=== PATIENT | male | born 1940 | race Caucasian/White ===

== ENCOUNTER 2017-01-17 23:40 | Emergency (ER) | payer MEDICARE, OTHER ==
[2017-01-17 23:51] VITALS: BP 162/85
[2017-01-18] MEDS ORDERED: Sodium Chloride 0.9% 10 ML Syringe FLUSH PRN (00:08)
[2017-01-18] MEDS ORDERED: Sodium Chloride 0.9% 1,000 ML IV SCH (00:15)
[2017-01-18] MEDS ORDERED: Codeine/Promethazine 10-6.25 MG/5 ML Syrup 5 ML UD Cup PO ONE (00:20)
[2017-01-18] MEDS ORDERED: Codeine/Promethazine 10-6.25 MG/5 ML Syrup 5 ML UD Cup ONE (00:22)
[2017-01-18] MEDS ORDERED: Iopamidol 612 MG/ML 150 ML Bottle IVPUSH ONE (01:17)
[2017-01-18] MEDS ORDERED: Diatrizoate Meglumine/Diatrizoate Sodium 37% 120 ML Bottle PO ONE (01:17)
--- NOTE | 2017-01-18 01:49 | EDM.PDOC ---
ED HISTORY OF PRESENT ILLNESS - General Chief Complaint: Respiratory Problem Stated Complaint: COUGH ABDOMAINAL PAIN Time Seen by Provider: 01/18/17 00:02 Source of Information: Reports: Patient History Limitations: Reports: No limitations - History of Present Illness INITIAL COMMENTS - FREE TEXT/NARRATIVE: The patient presents with RLQ abdominal pain after coughing earlier tonight. He has had a cough and shortness of breath for a few days. He has no fever. He has been remodeling his kitchen and it started after that. He has a history of bilateral ingunal hernias but they have not bothered him until tonight when he coughed. Now he has continuous pain in the right lower abdomen. He has no nausea or vomiting. He has no dysuria. He has no diarrhea. Timing/Duration: Reports: Minutes: Severity: moderate Location, General: Reports: abdomen (RLQ) Quality: Reports: Sharp Improves with: Reports: None Worsens with: Reports: Other (coughing) Context, General: Reports: Other (Cough) Associated Symptoms (General): Reports: cough. Denies: fever/chills, nausea/ vomiting, shortness of breath - Related Data Allergies/ADRs: Allergies Allergy/AdvReac Type Severity Reaction Status Date / Time Penicillins Allergy Cannot Verified 01/17/17 23:51 Remember Home Meds: Home Meds Albuterol [Proventil Neb Soln] 2.5 mg NEB QID 01/17/17 [History] Budesonide/Formoterol Fumarate [Symbicort 160-4.5 Mcg Inhaler] 1 puff IH BID [History] Levothyroxine 150 mcg PO ASDIRECTED 01/17/17 [History] Levothyroxine 175 mcg PO ASDIRECTED 01/17/17 [History] Codeine/Promethazine [Phenergan with Codeine] 5 - 10 ml PO Q6HR PRN #300 ml [Rx] Past Medical History Respiratory History: Reports: COPD Gastrointestinal History: Reports: Other (see below) Other Gastrointestinal History: hernia Endocrine/Metabolic History: Reports: Hypothyroidism Social & Family History - Tobacco Use Smoking Status *Q: Former Smoker Used Tobacco, but Quit: Yes Month Tobacco Last Used: 1991 - Caffeine Use Caffeine Use: Reports: None - Recreational Drug Use Recreational Drug Use: No ED ROS GENERAL - Review of Systems Review Of Systems: See Below Constitutional: Reports: no symptoms HEENT: Reports: No symptoms Respiratory: Reports: Shortness of Breath, Cough Cardiovascular: Reports: No symptoms Endocrine: Reports: no symptoms GI/Abdominal: Reports: Abdominal pain. Denies: Nausea, Vomiting : Reports: no symptoms Musculoskeletal: Reports: no symptoms Skin: Reports: no symptoms ED EXAM, GENERAL - Physical Exam Exam: See Below Exam Limited By: No limitations General Appearance: alert, no apparent distress Ears: normal external exam Nose: normal inspection Head: atraumatic, normocephalic Neck: normal inspection Respiratory/Chest: no respiratory distress, wheezing (Mild) Cardiovascular: regular rate, rhythm, no edema, no murmur GI/Abdominal: soft, no organomegaly, no mass, tender (Moderate to the right lower abdomen. I do not feel a hernia in the right inguinal area) Course - Vital Signs Last Recorded V/S: Last Vital Signs Temp 97.7 F 01/17/17 23:47 Pulse 67 01/17/17 23:47 Resp 16 01/17/17 23:47 BP 162/85 H 01/17/17 23:47 Pulse Ox 95 01/17/17 23:47 - Orders/Labs/Meds Orders: Active Orders 24 hr Category Date Time Status Peripheral IV Care [RC] . DIRECTED Care 01/18/17 00:09 Active Abdomen Pelvis w Cont [CT] Stat Exams 01/18/17 00:08 Taken Chest 2V [CR] Stat Exams 01/18/17 00:08 Taken Sodium Chloride 0.9% [Normal Saline] 1,000 ml Med 01/18/17 00:15 Active IV ASDIRECTED Sodium Chloride 0.9% [Saline Flush] Med 01/18/17 00:08 Active 10 ml FLUSH ASDIRECTED PRN Peripheral IV Insertion Adult [OM.PC] Stat Oth 01/18/17 00:08 Ordered Medication Orders Sodium Chloride (Normal Saline) 1,000 mls @ 125 mls/hr IV ASDIRECTED [facility] Last Admin: 01/18/17 00:25 Dose: 125 mls/hr Sodium Chloride (Saline Flush) 10 ml FLUSH ASDIRECTED PRN PRN Reason: Keep Vein Open Labs: Laboratory Tests 01/18/17 01/18/17 01/18/17 Range/Units 00:20 00:20 01:15 WBC 10.93 H (4.23-9.07) K/mm3 RBC 3.74 L (4.63-6.08) M/mm3 Hgb 12.6 L (13.7-17.5) gm/L Hct 39.3 L (40.1-51.0) % MCV 105.1 H (79.0-92.2) fl MCH 33.7 H (25.7-32.2) pg MCHC 32.1 L (32.2-35.5) g/dl RDW Std Deviation 48.9 H (35.1-43.9) fL Plt Count 91 L (163-337) K/mm3 MPV 9.8 (9.4-12.3) fl Neut % (Auto) 78.0 H (34.0-67.9) % Lymph % (Auto) 5.1 L (21.8-53.1) % Boyd % (Auto) 16.2 H (5.3-12.2) % Eos % (Auto) 0.2 L (0.8-7.0) Baso % (Auto) 0.2 (0.1-1.2) % Neut # (Auto) 8.53 H (1.78-5.38) K/mm3 Lymph # (Auto) 0.56 L (1.32-3.57) K/mm3 Boyd # (Auto) 1.77 H (0.30-0.82) K/mm3 Eos # (Auto) 0.02 L (0.04-0.54) K/mm3 Baso # (Auto) 0.02 (0.01-0.08) K/mm3 Manual Slide Review Abnormal smear Sodium 140 (136-145) mEq/L Potassium 3.6 (3.5-5.1) mEq/L Chloride 106 (98-107) mEq/L Carbon Dioxide 25 (21-32) mEq/L Anion Gap 12.6 (5-15) BUN 20 H (7-18) mg/dL Creatinine 1.1 (0.7-1.3) mg/dL Est Cr Clr Drug Dosing 61.80 mL/min Estimated GFR (MDRD) > 60 (>60) mL/min BUN/Creatinine Ratio 18.2 H (14-18) Glucose 99 (83-115) mg/dL Calcium 8.9 (8.5-10.1) mg/dL Total Bilirubin 0.8 (0.2-1.0) mg/dL AST 48 H (15-37) U/L ALT 45 (16-63) U/L Alkaline Phosphatase 53 (46-116) U/L Total Protein 6.3 L (6.4-8.2) g/dl Albumin 3.6 (3.4-5.0) g/dl Globulin 2.7 gm/dL Albumin/Globulin Ratio 1.3 (1-2) Lipase 64 L (73-393) U/L Urine Color Yellow (Yellow) Urine Appearance Clear (Clear) Urine pH 5.5 (5.0-8.0) Ur Specific [place] 1.010 (1.005-1.030) Urine Protein Negative (Negative) Urine Glucose (UA) Negative (Negative) Urine Ketones Negative (Negative) Urine Occult Blood Trace-lysed H (Negative) Urine Nitrite Negative (Negative) Urine Bilirubin Negative (Negative) Urine Urobilinogen 0.2 (0.2-1.0) Ur Leukocyte Esterase Negative (Negative) Urine RBC 5-10 H (0-5) /hpf Urine WBC 0-5 (0-5) /hpf Ur Epithelial Cells 0-5 (0-5) /hpf Urine Bacteria Occasional (FEW) /hpf Urine Mucus Not seen (FEW) /hpf Meds: Medications Generic Name Dose Route Start Last Admin Trade Name Freq PRN Reason Stop Dose Admin Sodium Chloride 1,000 mls @ 125 mls/hr 01/18/17 00:15 01/18/17 00:25 Normal Saline IV 125 mls/hr ASDIRECTED SAMMIE Administration Sodium Chloride 10 ml 01/18/17 00:08 Saline Flush FLUSH ASDIRECTED PRN Keep Vein Open Discontinued Medications Generic Name Dose Route Start Last Admin Trade Name Freq PRN Reason Stop Dose Admin Diatrizoate Meglum/Diatrizoate Sod 90 ml 01/18/17 01:17 Gastrografin 37% PO 01/18/17 01:18 ONETIME ONE Iopamidol 125 ml 01/18/17 01:17 Isovue-300 (61%) IVPUSH 01/18/17 01:18 ONETIME ONE Promethazine HCl/Codeine 10 ml 01/18/17 06:00 Phenergan With Codeine PO Q6HR SAMMIE Promethazine HCl/Codeine 10 ml 01/18/17 00:20 01/18/17 00:25 Phenergan With Codeine PO 01/18/17 00:21 10 ml STAT ONE Administration Promethazine HCl/Codeine Confirm 01/18/17 00:22 01/18/17 01:55 Phenergan With Codeine Administered 01/18/17 00:23 Not Given Dose 10 ml .ROUTE .STK-MED ONE - Re-Assessments/Exams Free Text/Narrative Re-Assessment/Exam: 01/18/17 01:49 I have ordered labs, UA, CT of his abdomen and pelvis and a CXR. I also gave him 10mLs of phenergan with codeine. 01/18/17 02:24 His WBC is elevated at 10.93. His Hgb was a little lwo at 12.6. His Platelets are low at 91. His CMP is negative. His UA shows no UTI. His CT shows no acute findings. The cough medicine helped some. I will give him a prescription for that. He had no sign of hernia on the CT. He may have pulled a muscle. I will give him a brace and see if that helps. 01/18/17 02:27 The patient is on an antibiotic and prednisone. I will have him continue that. Departure - Departure Time of Disposition: 02:30 Disposition: Home, Self-Care 01 Condition: good Clinical Impression: Bronchitis Abdominal pain Qualifiers: Abdominal location: right lower quadrant Qualified Code(s): R10.31 - Right lower quadrant pain Abdominal wall strain Qualifiers: Encounter type: initial encounter Qualified Code(s): S39.011A - Strain of muscle, fascia and tendon of abdomen, initial encounter Prescriptions: Codeine/Promethazine [Phenergan with Codeine] 5 - 10 ml PO Q6HR PRN #300 ml PRN Reason: Cough Referrals: Yamil Watson MD [Primary Care Provider] - Forms: ED Department Discharge Additional Instructions: Take your medication as prescribed. Take the phenergan with codeine every 6 hours as needed for cough. Please return if you are worse. - My Orders Last 24 Hours: My Active Orders 01/18/17 00:08 Abdomen Pelvis w Cont [CT] Stat Chest 2V [CR] Stat Sodium Chloride 0.9% [Saline Flush] 10 ml FLUSH ASDIRECTED PRN Peripheral IV Insertion Adult [OM.PC] Stat 01/18/17 00:09 Peripheral IV Care [RC] . DIRECTED 01/18/17 00:15 Sodium Chloride 0.9% [Normal Saline] 1,000 ml IV ASDIRECTED - Assessment/Plan Last 24 Hours: My Active Orders 01/18/17 00:08 Abdomen Pelvis w Cont [CT] Stat Chest 2V [CR] Stat Sodium Chloride 0.9% [Saline Flush] 10 ml FLUSH ASDIRECTED PRN Peripheral IV Insertion Adult [OM.PC] Stat 01/18/17 00:09 Peripheral IV Care [RC] . DIRECTED 01/18/17 00:15 Sodium Chloride 0.9% [Normal Saline] 1,000 ml IV ASDIRECTED
[2017-01-18] MEDS ORDERED: Codeine/Promethazine 10-6.25 MG/5 ML Syrup 5 ML UD Cup PO SCH (06:00)
--- NOTE | 2017-01-18 09:47 | CR ---
Chest: Two views of the chest were obtained. Comparison: Previous chest CT of 12/28/15 and chest x-ray of 05/17/13. Heart size appears within normal limits. Mild tortuosity of the thoracic aorta is seen. Minimal scar within the right lung base is noted. Lungs otherwise are clear. Bony structures are within normal limits for the patient's age. Impression: 1. Incidental findings. Nothing acute is identified on two-view chest x-ray. Diagnostic code #2
--- NOTE | 2017-01-18 10:34 | CT ---
CT abdomen and pelvis Technique: Multiple axial sections were obtained from above the dome of the diaphragm inferiorly to the pubic symphysis. Intravenous and oral contrast was utilized. Delayed images were also obtained through the abdomen and pelvis. Comparison: Previous CT abdomen and pelvis exam of 07/05/09 is available. Findings: Slight scarring and atelectasis felt to be present within both lung bases. Nothing acute is appreciated. Liver shows no focal parenchymal abnormality. Spleen appears within normal limits. Gallbladder shows no calcified gallstones. Adrenal glands show no nodule. Pancreas is within normal limits. Kidneys show symmetric contrast enhancement without hydronephrosis. Cyst noted within the right kidney measuring about 2.6 cm in size. Cyst was noted on prior exam within the right kidney. Kidneys are otherwise unremarkable. Aorta shows atherosclerotic change which continues into the iliac vessels. No aneurysm is seen. No retroperitoneal adenopathy or mesenteric abnormalities are seen. No pelvic mass or adenopathy is seen. Prostate gland is slightly enlarged. Mild diverticulosis noted within the sigmoid colon without inflammatory change of diverticulitis. Appendix is seen which appears normal. Mild increased stool noted within the colon. Delayed images show contrast within nondilated ureters as well as contrast seen within the bladder. Bone window settings were reviewed which show scattered degenerative change within the spine. Vacuum disc phenomena noted within the L3-L4 and L4-L5 discs. Small fat-containing umbilical hernia is incidentally noted. Impression: 1. Incidental findings as noted above. Nothing acute is identified on CT study of the abdomen and pelvis. Agree with preliminary report issued by [facility] (preliminary report dictated on 01/18/17, 3:15 AM Central Time) Diagnostic code #2
== END 2017-01-18 02:40 | disposition home or self-care (01) ==
LOC: JD.ED 23:40 → MERGE 23:40 → JD.ED 01-18 02:40
DX: S39.011A Strain of muscle, fascia and tendon of abdomen, initial encounter (principal); J40 Bronchitis, not specified as acute or chronic; J44.9 Chronic obstructive pulmonary disease, unspecified; Z87.891 Personal history of nicotine dependence; Z88.0 Allergy status to penicillin; X58.XXXA Exposure to other specified factors, initial encounter
CPT/HCPCS: 36415; 71020; 74177; 80053; 81001; 83690; 85025; 96360; 96361; 99285; A9270; J7040; Q9963; 99283

== ENCOUNTER 2017-09-23 18:38 | Emergency (ER) | payer MEDICARE, OTHER ==
[2017-09-23 18:54] VITALS: BP 137/75
[2017-09-23] MEDS ORDERED: Albuterol/Ipratropium 3.0-0.5 MG/3 ML Neb Soln NEB ONE (19:01)
[2017-09-23] MEDS ORDERED: Levofloxacin/Dextrose 5%-Water 750 MG in Premix Bag 1 BAG IV ONE (19:01)
--- NOTE | 2017-09-23 19:30 | EDM.PDOC ---
ED HPI GENERAL MEDICAL PROBLEM - General Chief Complaint: Respiratory Problem Stated Complaint: FEVER,COUGH (COPD) Time Seen by Provider: 09/23/17 18:52 Source of Information: Reports: Patient History Limitations: Reports: No Limitations - History of Present Illness INITIAL COMMENTS - FREE TEXT/NARRATIVE: The patient presents with a cough, fever, body aches and malaise. This all started last week. He was seen by Dr Watson and he was started on a z-baylee and prednisone. Usually this helps but his symptoms have gotten worse. He has COPD. He denies any chest pain. He has no shortness of breath. He has no abdominal pain, nausea or vomiting. Onset: Gradual Duration: Week(s): (1) Severity: Moderate Improves with: Reports: None Worsens with: Reports: None Associated Symptoms: Reports: Cough, Fever/Chills. Denies: Chest Pain, Headaches, Nausea/Vomiting, Shortness of Breath - Related Data Allergies Allergy/AdvReac Type Severity Reaction Status Date / Time Penicillins Allergy Cannot Verified 01/17/17 23:51 Remember Home Meds: Home Meds Albuterol [Proventil Neb Soln] 2.5 mg NEB QID 01/17/17 [History] Budesonide/Formoterol Fumarate [Symbicort 160-4.5 Mcg Inhaler] 1 puff IH BID [History] Levothyroxine 150 mcg PO ASDIRECTED 01/17/17 [History] Levothyroxine 175 mcg PO ASDIRECTED 01/17/17 [History] Codeine/Promethazine [Phenergan with Codeine] 5 - 10 ml PO Q6HR PRN #300 ml [Rx] Levofloxacin [Levaquin] 750 mg PO DAILY #5 tablet 09/23/17 [Rx] Oseltamivir [Tamiflu] 75 mg PO BID #10 cap 09/23/17 [Rx] Past Medical History Respiratory History: Reports: COPD Gastrointestinal History: Reports: Other (See Below) Other Gastrointestinal History: hernia Endocrine/Metabolic History: Reports: Hypothyroidism Social & Family History - Tobacco Use Smoking Status *Q: Former Smoker Years of Tobacco use: 36 Packs/Tins Daily: 1 Used Tobacco, but Quit: Yes Month Tobacco Last Used: 1991 - Caffeine Use Caffeine Use: Reports: Coffee - Recreational Drug Use Recreational Drug Use: No ED ROS GENERAL - Review of Systems Review Of Systems: See Below Constitutional: Reports: Fever HEENT: Reports: No Symptoms Respiratory: Reports: Cough Cardiovascular: Reports: No Symptoms Endocrine: Reports: No Symptoms GI/Abdominal: Reports: No Symptoms : Reports: No Symptoms ED EXAM, GENERAL - Physical Exam Exam: See Below Exam Limited By: No Limitations General Appearance: Alert, No Apparent Distress Ears: Normal External Exam Nose: Normal Inspection Throat/Mouth: Normal Inspection Head: Atraumatic, Normocephalic Neck: Normal Inspection Respiratory/Chest: No Respiratory Distress, Wheezing (Mild) Cardiovascular: Regular Rate, Rhythm, No Edema, No Murmur GI/Abdominal: Soft, Non-Tender, No Organomegaly, No Mass Back Exam: Normal Inspection Extremities: Normal Inspection Course - Vital Signs Last Recorded V/S: Last Vital Signs Temp 100.4 F 09/23/17 18:50 Pulse 92 09/23/17 18:50 Resp 18 09/23/17 18:50 BP 137/75 09/23/17 18:50 Pulse Ox 93 L 09/23/17 19:22 - Orders/Labs/Meds Orders: Active Orders 24 hr Category Date Time Status Cardiac Monitoring [RC] . DIRECTED Care 09/23/17 19:00 Active Oxygen Therapy [RC] PRN Care 09/23/17 19:00 Active RT Aerosol Therapy [RC] ASDIRECTED Care 09/23/17 19:01 Active Chest 2V [CR] Stat Exams 09/23/17 19:01 Taken Labs: Laboratory Tests 09/23/17 09/23/17 Range/Units 19:00 19:00 WBC 11.22 H (4.23-9.07) K/mm3 RBC 3.67 L (4.63-6.08) M/mm3 Hgb 12.6 L (13.7-17.5) gm/L Hct 39.0 L (40.1-51.0) % MCV 106.3 H (79.0-92.2) fl MCH 34.3 H (25.7-32.2) pg MCHC 32.3 (32.2-35.5) g/dl RDW Std Deviation 48.2 H (35.1-43.9) fL Plt Count 99 L (163-337) K/mm3 MPV 8.9 L (9.4-12.3) fl Neut % (Auto) 74.8 H (34.0-67.9) % Lymph % (Auto) 4.4 L (21.8-53.1) % Bates % (Auto) 17.1 H (5.3-12.2) % Eos % (Auto) 2.8 (0.8-7.0) Baso % (Auto) 0.4 (0.1-1.2) % Neut # (Auto) 8.39 H (1.78-5.38) K/mm3 Lymph # (Auto) 0.49 L (1.32-3.57) K/mm3 Bates # (Auto) 1.92 H (0.30-0.82) K/mm3 Eos # (Auto) 0.31 (0.04-0.54) K/mm3 Baso # (Auto) 0.05 (0.01-0.08) K/mm3 Manual Slide Review Abnormal smear Sodium 139 (136-145) mEq/L Potassium 3.8 (3.5-5.1) mEq/L Chloride 104 (98-107) mEq/L Carbon Dioxide 28 (21-32) mEq/L Anion Gap 10.8 (5-15) BUN 18 (7-18) mg/dL Creatinine 1.4 H (0.7-1.3) mg/dL Est Cr Clr Drug Dosing 48.56 mL/min Estimated GFR (MDRD) 49 (>60) mL/min BUN/Creatinine Ratio 12.9 L (14-18) Glucose 115 (83-115) mg/dL Calcium 8.4 L (8.5-10.1) mg/dL Total Bilirubin 0.7 (0.2-1.0) mg/dL AST 18 (15-37) U/L ALT 25 (16-63) U/L Alkaline Phosphatase 69 (46-116) U/L Total Protein 5.9 L (6.4-8.2) g/dl Albumin 3.0 L (3.4-5.0) g/dl Globulin 2.9 gm/dL Albumin/Globulin Ratio 1.0 (1-2) Meds: Medications Discontinued Medications Generic Name Dose Route Start Last Admin Trade Name Freq PRN Reason Stop Dose Admin Albuterol/Ipratropium 3 ml 09/23/17 19:01 09/23/17 19:19 Duoneb 3.0-0.5 Mg/3 Ml NEB 09/23/17 19:02 3 ml ONETIME ONE Administration Levofloxacin/Dextrose 750 mg/ 150 mls @ 100 mls/hr 09/23/17 19:01 09/23/17 19 :30 Premix IV 09/23/17 20:30 100 mls/hr ONETIME ONE Administration Oseltamivir Phosphate 75 mg 09/23/17 20:21 09/23/17 20:30 Tamiflu PO 09/23/17 20:22 75 mg ONETIME ONE Administration - Re-Assessments/Exams Free Text/Narrative Re-Assessment/Exam: 09/23/17 19:29 I ordered an IV NS at 125mL/hr, labs, CXR, levaquin 750mg IV and a duoneb. 09/23/17 20:36 His influenza A is positive. His WBC was elevated at 11.2. His Hgb was a little low at 12.6. His platelets are a little low at 99. His creatinine is slightly elevated at 1.4. His has a linear infiltrate in the left lower lung. I will give him a dose of tamiflu here and a prescription for more and some levaquin. Departure - Departure Time of Disposition: 20:40 Disposition: Home, Self-Care 01 Condition: Good Clinical Impression: Influenza A Pneumonia Qualifiers: Pneumonia type: due to unspecified organism Laterality: left Lung location: lower lobe of lung Qualified Code(s): J18.1 - Lobar pneumonia, unspecified organism - Discharge Information Prescriptions: Levofloxacin [Levaquin] 750 mg PO DAILY #5 tablet Oseltamivir [Tamiflu] 75 mg PO BID #10 cap Referrals: Yamil Watson MD [Primary Care Provider] - Forms: ED Department Discharge Additional Instructions: Take the tamiflu 2 times per day for 5 days. Take the levaquin 750mg daily for 5 days. Take your other medications as prescribed. Take tylenol or motrin for any fever. Please return if you are worse. - My Orders Last 24 Hours: My Active Orders 09/23/17 19:00 Cardiac Monitoring [RC] . DIRECTED Oxygen Therapy [RC] PRN 09/23/17 19:01 RT Aerosol Therapy [RC] ASDIRECTED Chest 2V [CR] Stat - Assessment/Plan Last 24 Hours: My Active Orders 09/23/17 19:00 Cardiac Monitoring [RC] . DIRECTED Oxygen Therapy [RC] PRN 09/23/17 19:01 RT Aerosol Therapy [RC] ASDIRECTED Chest 2V [CR] Stat
[2017-09-23] MEDS ORDERED: Oseltamivir 75 MG Cap PO ONE (20:21)
--- NOTE | 2017-09-24 07:59 | CR ---
Chest: Two views of the chest were obtained. Comparison: Prior chest CT of 02/08/17 and chest x-ray of 01/18/17. Slight atelectasis is seen within both lung bases, worse on the left side. Lungs are hyperinflated compatible with emphysematous change. Lungs otherwise are clear. Heart size and mediastinum are within normal limits. Bony structures appear within normal limits for the patient's age. Impression: 1. Mild atelectasis within both lung bases, worse on the left side. 2. Emphysematous change. 3. Nothing acute is otherwise seen on two-view chest x-ray. Diagnostic code #2
== END 2017-09-23 20:55 | disposition home or self-care (01) ==
LOC: JD.ED 18:38
DX: J10.00 Influenza due to other identified influenza virus with unspecified type of pneumonia (principal); Z88.0 Allergy status to penicillin; Z79.899 Other long term (current) drug therapy; Z87.891 Personal history of nicotine dependence
CPT/HCPCS: 36415; 71020; 80053; 85025; 87804; 94640; 96365; 99284; A9270; J1956; 99283

== ENCOUNTER 2019-11-09 04:07 | Emergency (ER) | payer MEDICARE, OTHER ==
--- NOTE | 2019-11-09 05:26 | EDM.PDOC ---
ED HPI GENERAL MEDICAL PROBLEM - General Chief Complaint: ENT Problem Stated Complaint: EYE PROBLEM Time Seen by Provider: 11/09/19 04:58 Source of Information: Reports: Patient, Family () History Limitations: Reports: No Limitations - History of Present Illness INITIAL COMMENTS - FREE TEXT/NARRATIVE: Mr. Nichole is a very pleasant 79-year-old man with a past medical history significant for non-Hodgkin lymphoma, twice, in 1991 and 2005, who is hard of hearing, status post a cochlear implant, who states that he has to get up to use the restroom several times a night. When he got up around 03:45 this morning, he states that his left eye felt "funny". When he looked in the ear, he saw that his eye appeared to be swollen and bloody. He denies pain. No known trauma to the eye. No prior similar symptoms, although the patient's notes that his left eye gets bloodshot often. The patient's PCP is Dr. Nirav Wallace. His Nursing Unit Manager is Dr. Jay Yuan. His Oncologist is Dr. Mauro Christianson. His Auto Electrician is Dr. Johanna Jefferson. His Ward Secretary is Dr. Toan Cortez. Left Eye Pain Score (Numeric/FACES): 3 - Related Data Allergies Allergy/AdvReac Type Severity Reaction Status Date / Time Penicillins Allergy Cannot Verified 11/09/19 04:36 Remember Home Meds: Home Meds Albuterol [Proventil Neb Soln] 2.5 mg NEB QID 01/17/17 [History] Budesonide/Formoterol Fumarate [Symbicort 160-4.5 Mcg Inhaler] 1 puff IH BID [History] Levothyroxine 150 mcg PO ASDIRECTED 01/17/17 [History] Levothyroxine 175 mcg PO ASDIRECTED 01/17/17 [History] Codeine/Promethazine [Phenergan with Codeine] 5 - 10 ml PO Q6HR PRN #300 ml [Rx] Levofloxacin [Levaquin] 750 mg PO DAILY #5 tablet 09/23/17 [Rx] Oseltamivir [Tamiflu] 75 mg PO BID #10 cap 09/23/17 [Rx] Past Medical History HEENT History: Reports: Hard of Hearing (s/p cochlear implant) Respiratory History: Reports: COPD (PFT-confirmed) Genitourinary History: Reports: BPH (untreated) Endocrine/Metabolic History: Reports: Hypothyroidism Oncologic (Cancer) History: Reports: Non-Hodgkin's Lymphoma (1991 + 2005) - Past Surgical History HEENT Surgical History: Reports: Cataract Surgery (bilateral), Naso-Sinus Surgery (x 5), Other (See Below) (Left cochlear implant) Social & Family History - Tobacco Use Smoking Status *Q: Former Smoker Years of Tobacco use: 36 Packs/Tins Daily: 1 Month/Year Tobacco Last Used: Quit 1993 - Caffeine Use Caffeine Use: Reports: Coffee - Alcohol Use Alcohol Use History: No - Recreational Drug Use Recreational Drug Use: No - Living Situation & Occupation Living situation: Reports: , with Spouse Occupation: Retired ED ROS GENERAL - Review of Systems Review Of Systems: Comprehensive ROS is negative, except as noted in HPI. ED EXAM GENERAL W FULL EYE - Physical Exam Exam: See Below Exam Limited By: No Limitations General Appearance: Alert, WD/WN, No Apparent Distress Eyelids: Right: Normal Appearance, Left: Edema Conjunctiva & Sclera: Right: Normal Appearance, Left: Subconjuctival Hemorrhage (Very large subconjunctival hemorrhage surrounding encircling the entire sclera , and even extending over the edges of the corneal dome, causing the upper and lower eyelids to bulge) Cornea Exam: Bilateral: Normal Appearance Extraocular Movements: Bilateral: Intact Pupils: Normal Accommodation Pupillary Size: Bilateral: 5 mm Pupillary Reaction: Bilateral: Brisk Anterior Chamber: Bilateral: Normal Appearance Course - Vital Signs Last Recorded V/S: Last Vital Signs Temp 36.2 C 11/09/19 04:33 Pulse 73 11/09/19 04:33 Resp 18 11/09/19 04:33 BP 159/74 H 11/09/19 04:33 Pulse Ox 97 11/09/19 04:33 - Re-Assessments/Exams Free Text/Narrative Re-Assessment/Exam: 11/09/19 05:21 On examination of the patient's left eye, he appears to have a gross subconjunctival hemorrhage, to the point that it encircles his entire visible sclera, although spares the cornea, but bulges out his upper and lower eyelids. Additionally, his eye is spontaneously bleeding periodically. 11/09/19 05:[address] Jay Yuan, the patient's Nursing Unit Manager, at 5:24. He agreed with my assessment that the patient likely suffered a subconjunctival hemorrhage, perhaps when he coughed this morning, but given the extremeness of his bleeding, he strongly suspects that the patient is on some sort of an anticoagulant, even if the patient is not aware of it. He can see the patient in his clinic today, as early as 8 AM central time. The above was discussed with the patient and his . The patient states that in addition to his prescribed medicines, he takes vitamin D, shark liver oil, and aloe vera with fennel. If shark liver oil acts like fish oil, it is likely an anticoagulant. I provided the patient with an ice pack to apply to his left eye. I will discharge him at this time. He and his will proceed to [place]. Departure - Departure Time of Disposition: 05:41 Disposition: Home, Self-Care 01 Condition: Good Clinical Impression: Subconjunctival hemorrhage of left eye - Discharge Information *PRESCRIPTION DRUG MONITORING PROGRAM REVIEWED*: Not Applicable *COPY OF PRESCRIPTION DRUG MONITORING REPORT IN PATIENT OTIS: Not Applicable Instructions: Subconjunctival Hemorrhage Referrals: Nirav Wallace MD [Primary Care Provider] - Jay Yuan MD [Physician] - Toan Nichols MD [Ordering Only Provider] - Mauro Christianson MD [Ordering Only Provider] - Johanna Jefferson MD [Ordering Only Provider] - Forms: ED Department Discharge Additional Instructions: You were seen in the emergency room after developing swelling and bleeding of your left eye. Based on your history and physical examination, you are suffering from a subconjunctival hemorrhage. The extent of the bleeding is likely do to your being on an anticoagulant, which , based on your history, is likely the shark liver oil. He will case was discussed with your flight nurse, Dr. Jay Yuan. He would like to see you in his clinic this morning. You are to proceed there now. While en route to his clinic, we recommend that you continue to apply an ice pack to your left eye. If any other problems, please do not hesitate to return to the ER. Sepsis Event Note - Evaluation Sepsis Screening Result: No Definite Risk - Focused Exam Date Exam was Performed: 11/11/19 Time Exam was Performed: 16:53
== END 2019-11-09 06:12 | disposition home or self-care (01) ==
LOC: JD.ED 04:07
CPT/HCPCS: 99282; 99283

== ENCOUNTER 2020-09-01 19:30 | Inpatient (IN) | payer MEDICARE, OTHER ==
[2020-09-01] MEDS ORDERED: Sodium Chloride 0.9% 10 ML Syringe FLUSH PRN (19:58)
--- NOTE | 2020-09-01 20:22 | EDM.PDOC ---
ED HPI GENERAL MEDICAL PROBLEM - General Chief Complaint: Respiratory Problem Stated Complaint: COVID+ WEAK/SOB Time Seen by Provider: 09/01/20 19:48 Source of Information: Reports: Patient, RN Notes Reviewed History Limitations: Reports: No Limitations - History of Present Illness INITIAL COMMENTS - FREE TEXT/NARRATIVE: Patient is a 79-year-old male who presents to the ED for the evaluation of his ongoing COVID-19 symptoms. Patient is Covid positive, he states that he has had Covid since just before . He went to [place] today to get bamlanivimab treatment. This was at around 3 PM hour time. He states that he is increasingly more short of breath, just cannot catch his air. He had chills on the way home. And he does have a fever at the time of triage is 102.2 F. Mildly tachycardic at 121 bpm, respiratory rate of 32, blood pressure 124/68, and O2 sats were 89% on room air. The patient denies any sort of cardiac history, states he has a positive history for COPD. His primary care provider is in [place] through [place]. - Related Data Allergies Allergy/AdvReac Type Severity Reaction Status Date / Time Penicillins Allergy Cannot Verified 09/01/20 19:47 Remember Home Meds: Home Meds Levothyroxine 150 mcg PO ASDIRECTED 01/17/17 [History] Levothyroxine 175 mcg PO ASDIRECTED 01/17/17 [History] Past Medical History HEENT History: Reports: Hard of Hearing Cardiovascular History: Reports: Heart Murmur Respiratory History: Reports: COPD Gastrointestinal History: Reports: Other (See Below) Other Gastrointestinal History: hernia Genitourinary History: Reports: BPH Endocrine/Metabolic History: Reports: Hypothyroidism Oncologic (Cancer) History: Reports: Non-Hodgkin's Lymphoma - Infectious Disease History Infectious Disease History: Reports: Novel Coronavirus (Jul 2020) - Past Surgical History HEENT Surgical History: Reports: Cataract Surgery, Naso-Sinus Surgery, Other (See Below) Social & Family History - Family History Family Medical History: No Pertinent Family History - Tobacco Use Tobacco Use Status *Q: Former Tobacco User Used Tobacco, but Quit: Yes Month/Year Tobacco Last Used: 1993 - Caffeine Use Caffeine Use: Reports: Coffee - Recreational Drug Use Recreational Drug Use: No - Living Situation & Occupation Living situation: Reports: , with Spouse Occupation: Retired ED ROS GENERAL - Review of Systems Review Of Systems: Comprehensive ROS is negative, except as noted in HPI. ED EXAM, GENERAL - Physical Exam Exam: See Below Exam Limited By: No Limitations General Appearance: Alert, WD/WN, No Apparent Distress Eye Exam: Bilateral Eye: EOMI Respiratory/Chest: No Respiratory Distress, Lungs Clear, Normal Breath Sounds, No Accessory Muscle Use, Chest Non-Tender Cardiovascular: Normal Peripheral Pulses, Regular Rate, Rhythm, No Edema, Tachycardia Peripheral Pulses: 2+: Radial (L), Radial (R) Extremities: Normal Inspection, Normal Capillary Refill Neurological: Alert, Oriented, Normal Cognition, No Motor/Sensory Deficits Psychiatric: Normal Affect, Normal Mood Skin Exam: Warm, Dry, Intact, Normal Color, No Rash #1 Interpretation EKG Date: 09/01/20 Time: 19:53 Rhythm: Other (ectopic atrial tachycardia) Rate (Beats/Min): 115 QRS: RBBB (and LAFB) ST-T: Other (?lateral acute infarct V5,V6, I, aVL) QT: Prolonged (QTc @ 616) Comparison: NA - No Prior EKG EKG Interpretation Comments: The patient's initial EKG was concerning for possible lateral infarct. I did discuss EKG findings with Dr. Agustin commercial roofing estimator at [place] in [place], and he states if the patient's not having chest pain, that this would not rule in for STEMI. #2 Interpretation EKG Date: 09/01/20 Time: 20:32 Rhythm: Other (sinus or ectopic atrial tach) Rate (Beats/Min): 105 QRS: RBBB (and LAFB) ST-T: Other (acute inferior infarct in leads II,II, aVF and lateral lead abnormalities) Comparison: No Change EKG Interpretation Comments: Second EKG was again reviewed and discussed with Dr. Agustin, he states that there was no change to the previous EKG, and again this does not rule in for STEMI. Course - Vital Signs Last Recorded V/S: Last Vital Signs Temp 100.6 F 09/01/20 20:29 Pulse 107 H 09/01/20 20:29 Resp 22 H 09/01/20 20:29 BP 119/61 09/01/20 20:29 Pulse Ox 96 09/01/20 20:50 - Orders/Labs/Meds Orders: Active Orders 24 hr Category Date Time Status EKG Documentation Completion [RC] STAT Care 09/01/20 19:57 Active EKG Documentation Completion [RC] STAT Care 09/01/20 20:30 Active Peripheral IV Care [RC] . DIRECTED Care 09/01/20 19:58 Active CBC WITH MANUAL DIFF [HEME] Stat Lab 09/01/20 19:17 Results CULTURE BLOOD [BC] Stat Lab 09/01/20 20:58 Ordered CULTURE BLOOD [BC] Stat Lab 09/01/20 20:58 Ordered HEPATIC FUNCTION PANEL,HFP [CHEM] DAILY Lab 09/02/20 21:15 Ordered HEPATIC FUNCTION PANEL,HFP [CHEM] DAILY Lab 09/03/20 21:15 Ordered HEPATIC FUNCTION PANEL,HFP [CHEM] DAILY Lab 09/04/20 21:15 Ordered HEPATIC FUNCTION PANEL,HFP [CHEM] DAILY Lab 09/05/20 21:15 Ordered Sodium Chloride 0.9% [Saline Flush] Med 09/01/20 19:58 Active 10 ml FLUSH ASDIRECTED PRN cefTRIAXone [Rocephin] 2 gm Med 09/01/20 21:07 Ordered Sodium Chloride 0.9% [Normal Saline] 100 ml IV ONETIME Blood Culture x2 Reflex Set [OM.PC] Stat Oth 09/01/20 20:58 Ordered Peripheral IV Insertion Adult [OM.PC] Routine Oth 09/01/20 19:58 Ordered Medication Orders Ceftriaxone Sodium 2 gm/ (Sodium Chloride) 100 mls @ 200 mls/hr IV ONETIME ONE Stop: 09/01/20 21:36 Sodium Chloride (Saline Flush) 10 ml FLUSH ASDIRECTED PRN PRN Reason: Keep Vein Open Last Admin: 09/01/20 19:59 Dose: 10 ml Documented by: ALEXANDER Labs: Laboratory Tests 09/01/20 09/01/20 09/01/20 Range/Units 19:17 19:17 19:17 WBC 17.02 H (4.23-9.07) K/mm3 RBC 4.86 (4.63-6.08) M/mm3 Hgb 15.4 D (13.7-17.5) gm/dl Hct 46.9 (40.1-51.0) % MCV 96.5 H D (79.0-92.2) fl MCH 31.7 (25.7-32.2) pg MCHC 32.8 (32.2-35.5) g/dl RDW Std Deviation 47.9 H (35.1-43.9) fL Plt Count 393 H D (163-337) K/mm3 MPV 10.2 (9.4-12.3) fl PT 12.2 H (9.7-12.0) SECONDS INR 1.14 APTT 33.3 H (21.7-31.4) SECONDS D-Dimer, Quantitative 0.68 H (0.19-0.50) mg/L Puncture Site ABG pH (7.35-7.45) ABG pCO2 (35.0-45.0) mmHg ABG pO2 (80.0-100.0) mmHg ABG HCO3 (22.0-26.0) meq/L ABG O2 Saturation (96.0-97.0) % ABG Base Excess (-2-2.0) Billy Test A-a Gradient mmHg O2 Delivery Device Oxygen Flow Rate FiO2 (21.00-100.00) % Sodium 133 L (136-145) mEq/L Potassium 3.6 (3.5-5.1) mEq/L Chloride 99 (98-107) mEq/L Carbon Dioxide 23 (21-32) mEq/L Anion Gap 14.6 (5-15) BUN 22 H (7-18) mg/dL Creatinine 1.2 (0.7-1.3) mg/dL Est Cr Clr Drug Dosing 52.38 mL/min Estimated GFR (MDRD) 59 (>60) mL/min BUN/Creatinine Ratio 18.3 H (14-18) Glucose 147 H (83-115) mg/dL Lactic Acid (0.4-2.0) mmol/L Calcium 8.9 (8.5-10.1) mg/dL Magnesium 1.9 (1.8-2.4) mg/dl Ferritin (26-388) ng/ml Total Bilirubin 1.1 H (0.2-1.0) mg/dL AST 27 (15-37) U/L ALT 32 (16-63) U/L Alkaline Phosphatase 85 (46-116) U/L Lactate Dehydrogenase 263 H (85-227) U/L Troponin I 0.044 (0.00-0.056) ng/mL C-Reactive Protein (<1.0) mg/dL NT-Pro-B Natriuret Pep (0-450) pg/mL Total Protein 6.9 (6.4-8.2) g/dl Albumin 3.4 (3.4-5.0) g/dl Globulin 3.5 gm/dL Albumin/Globulin Ratio 1.0 (1-2) 09/01/20 09/01/20 09/01/20 Range/Units 19:17 19:17 19:17 WBC (4.23-9.07) K/mm3 RBC (4.63-6.08) M/mm3 Hgb (13.7-17.5) gm/dl Hct (40.1-51.0) % MCV (79.0-92.2) fl MCH (25.7-32.2) pg MCHC (32.2-35.5) g/dl RDW Std Deviation (35.1-43.9) fL Plt Count (163-337) K/mm3 MPV (9.4-12.3) fl PT (9.7-12.0) SECONDS INR APTT (21.7-31.4) SECONDS D-Dimer, Quantitative (0.19-0.50) mg/L Puncture Site ABG pH (7.35-7.45) ABG pCO2 (35.0-45.0) mmHg ABG pO2 (80.0-100.0) mmHg ABG HCO3 (22.0-26.0) meq/L ABG O2 Saturation (96.0-97.0) % ABG Base Excess (-2-2.0) Billy Test A-a Gradient mmHg O2 Delivery Device Oxygen Flow Rate FiO2 (21.00-100.00) % Sodium (136-145) mEq/L Potassium (3.5-5.1) mEq/L Chloride (98-107) mEq/L Carbon Dioxide (21-32) mEq/L Anion Gap (5-15) BUN (7-18) mg/dL Creatinine (0.7-1.3) mg/dL Est Cr Clr Drug Dosing mL/min Estimated GFR (MDRD) (>60) mL/min BUN/Creatinine Ratio (14-18) Glucose (83-115) mg/dL Lactic Acid 2.0 (0.4-2.0) mmol/L Calcium (8.5-10.1) mg/dL Magnesium (1.8-2.4) mg/dl Ferritin 97 (26-388) ng/ml Total Bilirubin (0.2-1.0) mg/dL AST (15-37) U/L ALT (16-63) U/L Alkaline Phosphatase (46-116) U/L Lactate Dehydrogenase (85-227) U/L Troponin I (0.00-0.056) ng/mL C-Reactive Protein (<1.0) mg/dL NT-Pro-B Natriuret Pep 1215 H (0-450) pg/mL Total Protein (6.4-8.2) g/dl Albumin (3.4-5.0) g/dl Globulin gm/dL Albumin/Globulin Ratio (1-2) 09/01/20 09/01/20 Range/Units 20:00 20:09 WBC (4.23-9.07) K/mm3 RBC (4.63-6.08) M/mm3 Hgb (13.7-17.5) gm/dl Hct (40.1-51.0) % MCV (79.0-92.2) fl MCH (25.7-32.2) pg MCHC (32.2-35.5) g/dl RDW Std Deviation (35.1-43.9) fL Plt Count (163-337) K/mm3 MPV (9.4-12.3) fl PT (9.7-12.0) SECONDS INR APTT (21.7-31.4) SECONDS D-Dimer, Quantitative (0.19-0.50) mg/L Puncture Site Rt radial ABG pH 7.50 H (7.35-7.45) ABG pCO2 29.7 L (35.0-45.0) mmHg ABG pO2 65.0 L (80.0-100.0) mmHg ABG HCO3 22.8 (22.0-26.0) meq/L ABG O2 Saturation 91.7 L (96.0-97.0) % ABG Base Excess 1.0 (-2-2.0) Billy Test Positive A-a Gradient 48 mmHg O2 Delivery Device Room air Oxygen Flow Rate 0.0 FiO2 21.00 (21.00-100.00) % Sodium (136-145) mEq/L Potassium (3.5-5.1) mEq/L Chloride (98-107) mEq/L Carbon Dioxide (21-32) mEq/L Anion Gap (5-15) BUN (7-18) mg/dL Creatinine (0.7-1.3) mg/dL Est Cr Clr Drug Dosing mL/min Estimated GFR (MDRD) (>60) mL/min BUN/Creatinine Ratio (14-18) Glucose (83-115) mg/dL Lactic Acid (0.4-2.0) mmol/L Calcium (8.5-10.1) mg/dL Magnesium (1.8-2.4) mg/dl Ferritin (26-388) ng/ml Total Bilirubin (0.2-1.0) mg/dL AST (15-37) U/L ALT (16-63) U/L Alkaline Phosphatase (46-116) U/L Lactate Dehydrogenase (85-227) U/L Troponin I (0.00-0.056) ng/mL C-Reactive Protein 9.3 H* (<1.0) mg/dL NT-Pro-B Natriuret Pep (0-450) pg/mL Total Protein (6.4-8.2) g/dl Albumin (3.4-5.0) g/dl Globulin gm/dL Albumin/Globulin Ratio (1-2) Meds: Medications Generic Name Dose Route Start Last Admin Trade Name Freq PRN Reason Stop Dose Admin Ceftriaxone Sodium 2 gm/ 100 mls @ 200 mls/hr 09/01/20 21:07 Sodium Chloride IV 09/01/20 21:36 ONETIME ONE Sodium Chloride 10 ml 09/01/20 19:58 09/01/20 19:59 Saline Flush FLUSH 10 ml ASDIRECTED PRN Administration Keep Vein Open Discontinued Medications Generic Name Dose Route Start Last Admin Trade Name Freq PRN Reason Stop Dose Admin Dexamethasone 6 mg 09/01/20 21:06 Decadron IVPUSH 09/01/20 21:07 ONETIME ONE Remdesivir 200 mg/ Sodium 250 mls @ 250 mls/hr 09/01/20 21:06 Chloride IV 09/01/20 21:07 ONETIME ONE Ketorolac Tromethamine 30 mg 09/01/20 20:35 09/01/20 20:47 Toradol IVPUSH 09/01/20 20:36 30 mg ONETIME ONE Administration - Re-Assessments/Exams Free Text/Narrative Re-Assessment/Exam: 09/01/20 20:24 Patient presents to the ED for the evaluation of his ongoing COVID-19 symptoms. He did receive the outpatient monoclonal antibody, bamlanivimab a few hours ago. I do not believe this is any sort of allergic reaction related to that. His EKG was somewhat concerning for a lateral infarct. I did show this to the commercial roofing estimator service liaison representative in [place], Dr. Agustin, and he states to repeat the EKG at 830, so we have something to compare this to. Patient is having no active chest pain, only the shortness of breath noted. Dr. Agustin did not seem too concerned about his EKG at this time. We unfortunately just did not have one to compare to initially. 09/01/20 21:00 The patient's labs have been resulted, his white cell count is elevated at 17.02, differential still pending. D-dimer is elevated at 0.68, PO2 on room air was 65, but when he did get to the room, he was 88 to 89% on room air. He was subsequently put on oxygen at 2 L, and is satting around 95%. LDH elevated at 263, CRP elevated at 9.3, BNP is 1215. The patient's troponin is 0.044 at this time. Which is also reassuring, due to his EKG findings, I do not believe this is more cardiac related with the results of the troponin levels and EKG changes. At this time it does look like the patient needs hospitalization I will call Dr. Workman for this. 09/01/20 21:09 Dr. Workman does ultimately accept for admission. He will be started on remdesivir, IV steroids, [address] Workman's recommendation. The chest x-ray was concerning for possible right middle lobe pneumonia. Blood cultures will be obtained before antibiotics have been started. Departure - Departure Time of Disposition: 21:10 Disposition: Admitted As Inpatient 66 Condition: Good Clinical Impression: COVID-19 Right middle lobe pneumonia Qualifiers: Pneumonia type: due to unspecified organism Qualified Code(s): J18.9 - Pneumonia, unspecified organism - Discharge Information *PRESCRIPTION DRUG MONITORING PROGRAM REVIEWED*: No *COPY OF PRESCRIPTION DRUG MONITORING REPORT IN PATIENT OTIS: No Referrals: Yamil Watson MD [Primary Care Provider] - Forms: ED Department Discharge Sepsis Event Note (ED) - Evaluation Sepsis Screening Result: Possible Sepsis Risk - Focused Exam Vital Signs: Vital Signs Temp Pulse Resp BP Pulse Ox Pulse Ox 09/01/20 20:50 96 09/01/20 20:29 100.6 F 107 H 22 H 119/61 94 L 09/01/20 19:40 102.2 F H 121 H 32 H 124/68 89 L - My Orders Last 24 Hours: My Active Orders 09/01/20 19:17 CBC WITH MANUAL DIFF [HEME] Stat 09/01/20 19:57 EKG Documentation Completion [RC] STAT 09/01/20 19:58 Peripheral IV Care [RC] . DIRECTED Sodium Chloride 0.9% [Saline Flush] 10 ml FLUSH ASDIRECTED PRN Peripheral IV Insertion Adult [OM.PC] Routine 09/01/20 20:30 EKG Documentation Completion [RC] STAT 09/01/20 20:58 CULTURE BLOOD [BC] Stat CULTURE BLOOD [BC] Stat Blood Culture x2 Reflex Set [OM.PC] Stat 09/01/20 21:07 cefTRIAXone [Rocephin] 2 gm Sodium Chloride 0.9% [Normal Saline] 100 ml IV O NETIME 09/02/20 21:15 HEPATIC FUNCTION PANEL,HFP [CHEM] DAILY 09/03/20 21:15 HEPATIC FUNCTION PANEL,HFP [CHEM] DAILY 09/04/20 21:15 HEPATIC FUNCTION PANEL,HFP [CHEM] DAILY 09/05/20 21:15 HEPATIC FUNCTION PANEL,HFP [CHEM] DAILY - Assessment/Plan Last 24 Hours: My Active Orders 09/01/20 19:17 CBC WITH MANUAL DIFF [HEME] Stat 09/01/20 19:57 EKG Documentation Completion [RC] STAT 09/01/20 19:58 Peripheral IV Care [RC] . DIRECTED Sodium Chloride 0.9% [Saline Flush] 10 ml FLUSH ASDIRECTED PRN Peripheral IV Insertion Adult [OM.PC] Routine 09/01/20 20:30 EKG Documentation Completion [RC] STAT 09/01/20 20:58 CULTURE BLOOD [BC] Stat CULTURE BLOOD [BC] Stat Blood Culture x2 Reflex Set [OM.PC] Stat 09/01/20 21:07 cefTRIAXone [Rocephin] 2 gm Sodium Chloride 0.9% [Normal Saline] 100 ml IV ONETIME 09/02/20 21:15 HEPATIC FUNCTION PANEL,HFP [CHEM] DAILY 09/03/20 21:15 HEPATIC FUNCTION PANEL,HFP [CHEM] DAILY 09/04/20 21:15 HEPATIC FUNCTION PANEL,HFP [CHEM] DAILY 09/05/20 21:15 HEPATIC FUNCTION PANEL,HFP [CHEM] DAILY
[2020-09-01] MEDS ORDERED: Ketorolac 30 MG/ML SDV IVPUSH ONE (20:35)
--- NOTE | 2020-09-01 20:56 | CR ---
Chest: Portable view of the chest was obtained. Comparison: Prior chest x-ray of 09/23/17. Findings: Lungs: Left hemidiaphragm is elevated with air-filled stomach beneath it. Area of increased density is noted within the right midlung. Areas of atelectasis are noted within the left base. Heart and mediastinum: Heart size is within normal limits. Upper mediastinum shows mild tortuosity of the thoracic aorta. Osseous structures: Bony structures show nothing acute. Impression: 1. Elevated left hemidiaphragm with air-filled stomach beneath it. 2. Atelectasis within left base. 3. Area of focal density within the right midlung. Small area of pneumonia is possible. Diagnostic code #3
[2020-09-01] MEDS ORDERED: REMDESIVIR 200 MG in Sodium Chloride 0.9% 250 ML IV ONE (21:06)
[2020-09-01] MEDS ORDERED: Dexamethasone 10 MG/ML SDV IVPUSH ONE (21:06)
[2020-09-01] MEDS ORDERED: cefTRIAXone 2 GM in Sodium Chloride 0.9% 100 ML IV ONE (21:07)
[2020-09-02] MEDS ORDERED: Acetaminophen/HYDROcodone 325-5 MG Tab PO PRN (07:35)
[2020-09-02] MEDS ORDERED: Ondansetron 4 MG/2 ML SDV IV PRN (07:35)
--- NOTE | 2020-09-02 07:40 | PCM.HP.2 ---
H&P History of Present Illness - General Date of Service: 09/02/20 Admit Problem/Dx: Admission Diagnosis/Problem Admission Diagnosis/Problem Hypoxia Source of Information: Patient, Old Records, Provider, RN, RN Notes Reviewed History Limitations: Reports: No Limitations - History of Present Illness Initial Comments - Free Text/Narative: This is a 79 yo male who presented to ED in the evening of 09/01/2020 with weakness and shortness of breath. He is Covid positive. He states he was diagnosed with Covid just before . He had gone to [place] prior in the day to get the bamlanivimab antibody treatment around 3 PM. He states this was recommended by his primary care provider, Dr. Rivera. On the ride home he became more short of breath and noted chills. He then presented to the ED here. In the ED triage he is noted to have a fever of 102.2, be tachycardic at 121, have a respiratory rate of 32, blood pressure 124/68, and oxygen saturations are noted to be 89% on room air. Twelve-lead EKG is obtained showing ectopic atrial tachycardia at 115 bpm with a right bundle branch block and LAFB. QTC is prolonged. It was noted that there were concerns for possible lateral acute infarct giving changes to V5, V6, I and aVL. ED provider contacted Dr. Agustin, who is a multisensor intelligence officer at [employer] in [place]. He said because the patient is not having chest pain which not be concerned about a STEMI. EKG was obtained about an hour later with no change. Labs were obtained elevated WBC of 17.02. Hemoglobin of 15.4. Platelets of 393. PT was 2.2. INR 1.14. APTT was 33.3. D-dimer was 0.68. Sodium was low at 133. Potassium on the low end of normal at 3.6. Anion gap was 14.6. BUN was 22. Creatinine was 1.2. GFR is 59. Glucose was elevated at 147. Calcium was 8.9. Magnesium low end of normal at 1.9. Bilirubin was slightly elevated 1.1. AST was 27, ALT 32, alkaline phosphatase 85. LDH was 263. Troponin 0 0.044. Protein was 6.9. Albumin 3.4. Lactic acid was 2.0. Ferritin was 97. ABG was obtained in the right radial showing a pH of 7.5. PCO2 of 29.7. PO2 of 65. HCO3 was 22.8. O2 saturation was 91.7. Base excess was 1. This was on room air. CRP was 9.3. He is given 2 g of Rocephin along with 6 mg IV push of Decadron and 200 mg first dose of remdesivir. He is also given 30 mg of Toradol. Chest x-rays obtained showing an elevated left hemidiaphragm with a air-filled stomach beneath it. Atelectasis within the left base. There is also an area of focal density within the right midlung with a small area of pneumonia being possible. Cultures were obtained and are pending. Carries a history of heart murmur, COPD, hernia, BPH, hypothyroidism, non- Hodgkin's lymphoma. He is a former tobacco user who quit in 1998. Primary care provider is Dr. Rivera. He subsequently mid to the medical floor for management of his worsening COVID-19 virus and pneumonia. - Related Data Allergies/Adverse Reactions: Allergies Allergy/AdvReac Type Severity Reaction Status Date / Time Penicillins Allergy Cannot Verified 09/01/20 19:47 Remember Home Medications: Home Meds Levothyroxine 150 mcg PO ASDIRECTED 01/17/17 [History] Levothyroxine 175 mcg PO ASDIRECTED 01/17/17 [History] Albuterol [Ventolin HFA] 2 puff INH Q4H PRN 09/02/20 [History] Albuterol/Ipratropium [DuoNeb 3.0-0.5 MG/3 ML] 1 unit NEB Q6H 09/02/20 [History] Budesonide/Formoterol [Symbicort 80-4.5 MCG] 2 puff INH BID 09/02/20 [History] Cholecalciferol (Vitamin D3) [Vitamin D3] 2,000 units PO DAILY 09/02/20 [History] Dupilumab [Dupixent Pen] 300 mg IM Q14D 09/02/20 [History] EPINEPHrine [Epinephrine] 1 syringe IM ASDIRECTED 09/02/20 [History] Lutein/Minerals/Vit A,C & E [Ocuvite] 1 tab PO DAILY 09/02/20 [History] Mineral Oil 1 applic TOP ASDIRECTED 09/02/20 [History] Multivitamin with Iron [Multivitamins with Iron] 1 tab PO DAILY 09/02/20 [History] Tamsulosin [Flomax] 0.4 mg PO PCDINNER 09/02/20 [History] Triamcinolone Acetonide [Triamcinolone Acetonide 0.1% Oint] 1 applic TOP DAILY PRN 09/02/20 [History] hydroCHLOROthiazide [Hydrochlorothiazide] 12.5 mg PO DAILY 09/02/20 [History] predniSONE [Prednisone] 40 mg PO DAILY 09/02/20 [History] Past Medical History HEENT History: Reports: Hard of Hearing, Other (See Below) Other HEENT History: 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 Cardiovascular History: Reports: Heart Murmur Respiratory History: Reports: COPD, Sleep Apnea Gastrointestinal History: Reports: Other (See Below) Other Gastrointestinal History: hernia Genitourinary History: Reports: BPH Endocrine/Metabolic History: Reports: Hypothyroidism Oncologic (Cancer) History: Reports: Non-Hodgkin's Lymphoma - Infectious Disease History Infectious Disease History: Reports: Novel Coronavirus - Past Surgical History HEENT Surgical History: Reports: Cataract Surgery, Naso-Sinus Surgery, Other (See Below) Social & Family History - Family History Family Medical History: No Pertinent Family History - Tobacco Use Tobacco Use Status *Q: Former Tobacco User Used Tobacco, but Quit: Yes Month/Year Tobacco Last Used: 1993 Second Hand Smoke Exposure: No - Caffeine Use Caffeine Use: Reports: None - Recreational Drug Use Recreational Drug Use: No - Living Situation & Occupation Living situation: Reports: , with Spouse Occupation: Retired H&P Review of Systems - Review of Systems: Review Of Systems: See Below General: Reports: Chills, Malaise, Weakness, Fatigue. Denies: Fever HEENT: Reports: No Symptoms. Denies: Headaches, Sore Throat Pulmonary: Reports: Shortness of Breath, Cough. Denies: Wheezing, Pleuritic Chest Pain, Sputum Cardiovascular: Reports: No Symptoms, Dyspnea on Exertion. Denies: Chest Pain, Palpitations, Edema Gastrointestinal: Reports: No Symptoms. Denies: Abdominal Pain, Constipation, Diarrhea, Nausea, Vomiting Genitourinary: Reports: No Symptoms. Denies: Pain Musculoskeletal: Reports: No Symptoms Skin: Reports: No Symptoms. Denies: Cyanosis Psychiatric: Reports: No Symptoms. Denies: Confusion Neurological: Reports: No Symptoms. Denies: Pre-Existing Deficit, Difficulty Walking, Gait Disturbance Hematologic/Lymphatic: Reports: No Symptoms Immunologic: Reports: No Symptoms Exam - Exam Exam: See Below - Vital Signs Vital Signs: Last Vital Signs Temp 97.5 F 09/02/20 04:18 Pulse 69 09/02/20 04:20 Resp 16 09/02/20 04:18 BP 113/67 09/02/20 04:20 Pulse Ox 93 L 09/02/20 06:32 Weight: 187 lb 12.8 oz - Exam Quality Assessment: Supplemental Oxygen, DVT Prophylaxis. No: Urinary Catheter General: Alert, Oriented, Cooperative. No: Mild Distress HEENT: Conjunctiva Clear, Mucosa Moist & [place], Posterior Pharynx Clear Neck: Supple, Trachea Midline Lungs: Normal Respiratory Effort, Decreased Breath Sounds Cardiovascular: Regular Rate, Regular Rhythm GI/Abdominal Exam: Normal Bowel Sounds, Soft, Non-Tender, No Organomegaly, No Distention (Male) Exam: Deferred Rectal (Males) Exam: Deferred Back Exam: Normal Inspection, Full Range of Motion Extremities: Normal Inspection, Normal Range of Motion, Non-Tender, No Pedal Edema, Normal Capillary Refill Skin: Warm, Dry, Intact Neurological: Cranial Nerves Intact (Grossly ) Neuro Extensive - Mental Status: Alert, Oriented x3, Normal Mood/Affect - Patient Data Lab Results Last 24 hrs: Laboratory Results - last 24 hr 09/01/20 09/01/20 09/01/20 Range/Units 19:17 19:17 19:17 WBC 17.02 H (4.23-9.07) K/mm3 RBC 4.86 (4.63-6.08) M/mm3 Hgb 15.4 D (13.7-17.5) gm/dl Hct 46.9 (40.1-51.0) % MCV 96.5 H D (79.0-92.2) fl MCH 31.7 (25.7-32.2) pg MCHC 32.8 (32.2-35.5) g/dl RDW Std Deviation 47.9 H (35.1-43.9) fL Plt Count 393 H D (163-337) K/mm3 MPV 10.2 (9.4-12.3) fl Neutrophils % (Manual) 86 H (40-60) % Band Neutrophils % 2 (0-10) % Lymphocytes % (Manual) 8 L (20-40) % Atypical Lymphs % 0 % Monocytes % (Manual) 4 (2-10) % Eosinophils % (Manual) 0 L (0.8-7.0) % Basophils % (Manual) 0 L (0.2-1.2) Platelet Estimate Adequate RBC Morph Comment Normal PT 12.2 H (9.7-12.0) SECONDS INR 1.14 APTT 33.3 H (21.7-31.4) SECONDS D-Dimer, Quantitative 0.68 H (0.19-0.50) mg/L Puncture Site ABG pH (7.35-7.45) ABG pCO2 (35.0-45.0) mmHg ABG pO2 (80.0-100.0) mmHg ABG HCO3 (22.0-26.0) meq/L ABG O2 Saturation (96.0-97.0) % ABG Base Excess (-2-2.0) Billy Test A-a Gradient mmHg O2 Delivery Device Oxygen Flow Rate FiO2 (21.00-100.00) % Sodium 133 L (136-145) mEq/L Potassium 3.6 (3.5-5.1) mEq/L Chloride 99 (98-107) mEq/L Carbon Dioxide 23 (21-32) mEq/L Anion Gap 14.6 (5-15) BUN 22 H (7-18) mg/dL Creatinine 1.2 (0.7-1.3) mg/dL Est Cr Clr Drug Dosing 52.38 mL/min Estimated GFR (MDRD) 59 (>60) mL/min BUN/Creatinine Ratio 18.3 H (14-18) Glucose 147 H (83-115) mg/dL Lactic Acid (0.4-2.0) mmol/L Calcium 8.9 (8.5-10.1) mg/dL Magnesium 1.9 (1.8-2.4) mg/dl Ferritin (26-388) ng/ml Total Bilirubin 1.1 H (0.2-1.0) mg/dL AST 27 (15-37) U/L ALT 32 (16-63) U/L Alkaline Phosphatase 85 (46-116) U/L Lactate Dehydrogenase 263 H (85-227) U/L Troponin I 0.044 (0.00-0.056) ng/mL C-Reactive Protein (<1.0) mg/dL NT-Pro-B Natriuret Pep (0-450) pg/mL Total Protein 6.9 (6.4-8.2) g/dl Albumin 3.4 (3.4-5.0) g/dl Globulin 3.5 gm/dL Albumin/Globulin Ratio 1.0 (1-2) 09/01/20 09/01/20 09/01/20 Range/Units 19:17 19:17 19:17 WBC (4.23-9.07) K/mm3 RBC (4.63-6.08) M/mm3 Hgb (13.7-17.5) gm/dl Hct (40.1-51.0) % MCV (79.0-92.2) fl MCH (25.7-32.2) pg MCHC (32.2-35.5) g/dl RDW Std Deviation (35.1-43.9) fL Plt Count (163-337) K/mm3 MPV (9.4-12.3) fl Neutrophils % (Manual) (40-60) % Band Neutrophils % (0-10) % Lymphocytes % (Manual) (20-40) % Atypical Lymphs % % Monocytes % (Manual) (2-10) % Eosinophils % (Manual) (0.8-7.0) % Basophils % (Manual) (0.2-1.2) Platelet Estimate RBC Morph Comment PT (9.7-12.0) SECONDS INR APTT (21.7-31.4) SECONDS D-Dimer, Quantitative (0.19-0.50) mg/L Puncture Site ABG pH (7.35-7.45) ABG pCO2 (35.0-45.0) mmHg ABG pO2 (80.0-100.0) mmHg ABG HCO3 (22.0-26.0) meq/L ABG O2 Saturation (96.0-97.0) % ABG Base Excess (-2-2.0) Billy Test A-a Gradient mmHg O2 Delivery Device Oxygen Flow Rate FiO2 (21.00-100.00) % Sodium (136-145) mEq/L Potassium (3.5-5.1) mEq/L Chloride (98-107) mEq/L Carbon Dioxide (21-32) mEq/L Anion Gap (5-15) BUN (7-18) mg/dL Creatinine (0.7-1.3) mg/dL Est Cr Clr Drug Dosing mL/min Estimated GFR (MDRD) (>60) mL/min BUN/Creatinine Ratio (14-18) Glucose (83-115) mg/dL Lactic Acid 2.0 (0.4-2.0) mmol/L Calcium (8.5-10.1) mg/dL Magnesium (1.8-2.4) mg/dl Ferritin 97 (26-388) ng/ml Total Bilirubin (0.2-1.0) mg/dL AST (15-37) U/L ALT (16-63) U/L Alkaline Phosphatase (46-116) U/L Lactate Dehydrogenase (85-227) U/L Troponin I (0.00-0.056) ng/mL C-Reactive Protein (<1.0) mg/dL NT-Pro-B Natriuret Pep 1215 H (0-450) pg/mL Total Protein (6.4-8.2) g/dl Albumin (3.4-5.0) g/dl Globulin gm/dL Albumin/Globulin Ratio (1-2) 09/01/20 09/01/20 Range/Units 20:00 20:09 WBC (4.23-9.07) K/mm3 RBC (4.63-6.08) M/mm3 Hgb (13.7-17.5) gm/dl Hct (40.1-51.0) % MCV (79.0-92.2) fl MCH (25.7-32.2) pg MCHC (32.2-35.5) g/dl RDW Std Deviation (35.1-43.9) fL Plt Count (163-337) K/mm3 MPV (9.4-12.3) fl Neutrophils % (Manual) (40-60) % Band Neutrophils % (0-10) % Lymphocytes % (Manual) (20-40) % Atypical Lymphs % % Monocytes % (Manual) (2-10) % Eosinophils % (Manual) (0.8-7.0) % Basophils % (Manual) (0.2-1.2) Platelet Estimate RBC Morph Comment PT (9.7-12.0) SECONDS INR APTT (21.7-31.4) SECONDS D-Dimer, Quantitative (0.19-0.50) mg/L Puncture Site Rt radial ABG pH 7.50 H (7.35-7.45) ABG pCO2 29.7 L (35.0-45.0) mmHg ABG pO2 65.0 L (80.0-100.0) mmHg ABG HCO3 22.8 (22.0-26.0) meq/L ABG O2 Saturation 91.7 L (96.0-97.0) % ABG Base Excess 1.0 (-2-2.0) Billy Test Positive A-a Gradient 48 mmHg O2 Delivery Device Room air Oxygen Flow Rate 0.0 FiO2 21.00 (21.00-100.00) % Sodium (136-145) mEq/L Potassium (3.5-5.1) mEq/L Chloride (98-107) mEq/L Carbon Dioxide (21-32) mEq/L Anion Gap (5-15) BUN (7-18) mg/dL Creatinine (0.7-1.3) mg/dL Est Cr Clr Drug Dosing mL/min Estimated GFR (MDRD) (>60) mL/min BUN/Creatinine Ratio (14-18) Glucose (83-115) mg/dL Lactic Acid (0.4-2.0) mmol/L Calcium (8.5-10.1) mg/dL Magnesium (1.8-2.4) mg/dl Ferritin (26-388) ng/ml Total Bilirubin (0.2-1.0) mg/dL AST (15-37) U/L ALT (16-63) U/L Alkaline Phosphatase (46-116) U/L Lactate Dehydrogenase (85-227) U/L Troponin I (0.00-0.056) ng/mL C-Reactive Protein 9.3 H* (<1.0) mg/dL NT-Pro-B Natriuret Pep (0-450) pg/mL Total Protein (6.4-8.2) g/dl Albumin (3.4-5.0) g/dl Globulin gm/dL Albumin/Globulin Ratio (1-2) Result Diagrams: 09/02/20 09:12 09/02/20 09:12 Sepsis Event Note - Evaluation Sepsis Screening Result: No Definite Risk - Focused Exam Vital Signs: Vital Signs Temp Temp Pulse Pulse Resp BP BP 09/02/20 06:32 09/02/20 04:20 69 113/67 09/02/20 04:18 97.5 F 70 16 85/63 L 09/01/20 23:33 76 09/01/20 22:58 98.2 F 90 16 111/91 H 09/01/20 22:39 98.6 F 89 22 H 93/56 L 09/01/20 20:50 09/01/20 20:29 100.6 F 107 H 22 H 119/61 Pulse Ox Pulse Ox 09/02/20 06:32 93 L 09/02/20 04:20 92 L 09/02/20 04:18 92 L 09/01/20 23:33 93 L 09/01/20 22:58 90 L 09/01/20 22:39 93 L 09/01/20 20:50 96 09/01/20 20:29 94 L - Problem List (1) Abnormal EKG SNOMED Code(s): 116099501 ICD Code: R94.31 - ABNORMAL ELECTROCARDIOGRAM [ECG] [EKG] Status: Acute Priority: High Current Visit: Yes (2) COVID-19 SNOMED Code(s): 787974343 ICD Code: U07.1 - COVID-19 Status: Acute Priority: High Current Visit: Yes (3) Right middle lobe pneumonia SNOMED Code(s): 989225355 ICD Code: J18.9 - PNEUMONIA, UNSPECIFIED ORGANISM Status: Acute Priority: High Current Visit: Yes Qualifiers: Pneumonia type: due to unspecified organism Qualified Code(s): J18.9 - Pneumonia, unspecified organism (4) COPD (chronic obstructive pulmonary disease) SNOMED Code(s): 94633434 ICD Code: J44.9 - CHRONIC OBSTRUCTIVE PULMONARY DISEASE, UNSPECIFIED Status: Chronic Priority: Medium Current Visit: Yes Qualifiers: COPD type: unspecified COPD Qualified Code(s): J44.9 - Chronic obstructive pulmonary disease, unspecified Problem List Initiated/Reviewed/Updated: Yes Orders Last 24hrs: Active Orders 24 hr Category Date Time Status Admission Status [Patient Status] [ADT] Routine ADT 09/01/20 22:06 Active Cardiac Monitoring [RC] . DIRECTED Care 09/02/20 07:27 Active Height and Weight [RC] DAILY Care 09/02/20 07:35 Ordered Intake and Output [RC] QSHIFT Care 09/02/20 07:35 Ordered Nurse Communication: Isolation [RC] ASDIRECTED Care 09/02/20 07:28 Active Oxygen Therapy [RC] PRN Care 09/02/20 07:35 Ordered RT Incentive Spirometry [RC] ASDIRECTED Care 09/02/20 07:27 Active Up With Assistance [RC] ASDIRECTED Care 09/02/20 07:35 Ordered VTE/DVT Education [RC] PER UNIT ROUTINE Care 09/02/20 07:35 Ordered Vital Signs [RC] Q4H Care 09/02/20 07:35 Ordered Consult to Case Management/Neuro Intensivist Physician [CONS] Cons 09/02/20 07:35 Ordered Routine Consult to All Around Gear Machine Operator [CONS] Routine Cons 09/02/20 07:35 Ordered OT Evaluation and Treatment [CONS] Routine Cons 09/02/20 07:35 Ordered PT Evaluation and Treatment [CONS] Routine Cons 09/02/20 07:35 Ordered Respiratory Care Assess and Treatment [CONS] Routine Cons 09/02/20 07:35 Ordered Regular Diet [DIET] Diet 09/02/20 Breakfast Active CBC WITH AUTO DIFF [HEME] AM Lab 09/03/20 05:11 Ordered CBC WITH AUTO DIFF [HEME] AM Lab 09/04/20 05:11 Ordered CBC WITH AUTO DIFF [HEME] AM Lab 09/05/20 05:11 Ordered CBC WITH AUTO DIFF [HEME] AM Lab 09/06/20 05:11 Ordered CMP [COMPREHENSIVE METABOLIC PN,CMP] [CHEM] AM Lab 09/03/20 05:11 Ordered CMP [COMPREHENSIVE METABOLIC PN,CMP] [CHEM] AM Lab 09/04/20 05:11 Ordered CMP [COMPREHENSIVE METABOLIC PN,CMP] [CHEM] AM Lab 09/05/20 05:11 Ordered CMP [COMPREHENSIVE METABOLIC PN,CMP] [CHEM] AM Lab 09/06/20 05:11 Ordered CRP [C-REACTIVE PROTEIN] [CHEM] AM Lab 09/03/20 05:11 Ordered CRP [C-REACTIVE PROTEIN] [CHEM] AM Lab 09/04/20 05:11 Ordered CRP [C-REACTIVE PROTEIN] [CHEM] AM Lab 09/05/20 05:11 Ordered CRP [C-REACTIVE PROTEIN] [CHEM] AM Lab 09/06/20 05:11 Ordered CULTURE BLOOD [BC] Stat Lab 09/01/20 21:32 Received CULTURE BLOOD [BC] Stat Lab 09/01/20 21:40 Received DD [D-DIMER QUANTITATIVE] [COAG] Q48H Lab 09/03/20 07:34 Ordered DD [D-DIMER QUANTITATIVE] [COAG] Q48H Lab 09/05/20 07:34 Ordered MAGNESIUM [CHEM] AM Lab 09/03/20 05:11 Ordered MAGNESIUM [CHEM] AM Lab 09/04/20 05:11 Ordered MAGNESIUM [CHEM] AM Lab 09/05/20 05:11 Ordered MAGNESIUM [CHEM] AM Lab 09/06/20 05:11 Ordered Acetaminophen [TylenoL] Med 09/02/20 07:27 Ordered 650 mg PO Q4H PRN Acetaminophen/HYDROcodone [[place] 325-5 MG] Med 09/02/20 07:35 Ordered 1 tab PO Q4H PRN Azithromycin [Zithromax] Med 09/02/20 09:00 Ordered 500 mg PO DAILY Enoxaparin [Lovenox] Med 09/02/20 09:00 Ordered 40 mg SUBCUT DAILY Levothyroxine Med 09/02/20 07:45 Ordered 150 mcg PO ASDIRECTED Levothyroxine Med 09/02/20 07:45 Ordered 175 mcg PO ASDIRECTED Ondansetron [Zofran] Med 09/02/20 07:35 Ordered 4 mg IV Q6H PRN Remdesivir 100 mg Med 09/03/20 21:00 Ordered Sodium Chloride 0.9% [Normal Saline] 100 ml IV DAILY Sodium Chloride 0.9% [Saline Flush] Med 09/01/20 19:58 Active 10 ml FLUSH ASDIRECTED PRN cefTRIAXone [Rocephin] 2 gm Med 09/02/20 21:00 Active Sodium Chloride 0.9% [Normal Saline] 100 ml IV 2100 dexAMETHasone Med 09/02/20 21:00 Ordered 6 mg PO DAILY Blood Culture x2 Reflex Set [OM.PC] Stat Oth 09/01/20 20:58 Ordered Isolation [COMM] Stat Oth 09/02/20 07:27 Ordered Peripheral IV Insertion Adult [OM.PC] Routine Oth 09/01/20 19:58 Ordered Pulse Oximetry Continuous Monitoring [OM.PC] Routine Oth 09/02/20 07:30 Active RT Acapella [RESPCARE] Routine Oth 09/02/20 07:27 Active Resuscitation Status Routine Resus Stat 09/01/20 23:03 Ordered Medication Orders Acetaminophen (Tylenol) 650 mg PO Q4H PRN PRN Reason: Fever Greater Than 101 Hydrocodone Bitart/Acetaminophen ([place] 325-5 Mg) 1 tab PO Q4H PRN PRN Reason: Pain (moderate 4-6) Azithromycin (Zithromax) 500 mg PO DAILY SAMMIE Stop: 09/04/20 09:01 Dexamethasone (Dexamethasone) 6 mg PO 2100 SAMMIE Stop: 09/10/20 21:01 Enoxaparin Sodium (Lovenox) 40 mg SUBCUT DAILY SAMMIE Remdesivir 100 mg/ Sodium (Chloride) 100 mls @ 100 mls/hr IV 2100 SAMMIE Stop: 09/06/20 21:59 Ceftriaxone Sodium 2 gm/ (Sodium Chloride) 100 mls @ 200 mls/hr IV 2100 SAMIME Stop: 09/05/20 21:29 Levothyroxine Sodium (Levothyroxine) 150 mcg PO ASDIRECTED SAMMIE Non-Formulary Medication (Levothyroxine) 175 mcg PO ASDIRECTED SAMMIE Ondansetron HCl (Zofran) 4 mg IV Q6H PRN PRN Reason: Nausea/Vomiting Sodium Chloride (Saline Flush) 10 ml FLUSH ASDIRECTED PRN PRN Reason: Keep Vein Open Last Admin: 09/01/20 19:59 Dose: 10 ml Documented by: ALEXANDER Assessment/Plan Comment:: Assessment - Day of admission (09/02/2020 - admitted overnight 09/01/2020) * 79 yo male who was diagnosed with COVID-19 prior to [facility] * Was in [place] on 09/01/2020 for bamlanivimab treatment * [place] worse on ride home (SOB and chills) and presented to ED * Labs * WBC 17.02 (likely elevated from patients home steroids) * PLT 393 * INR 1.14 * D-Dimer 0.68 * Sodium 133 * Creatinine 1.2, GFR 59 * Glucose 147 * Bilirubin 1.1 * AST27, ALT32, Alk Phos 263 * Lactic acid 2.0 * Ferritin 97 * CRP 9.3 * Troponin 0.044 * Pro-BNP 1215 * ABG: pH 7.50, pCO2 29.7, pO2 65, HCO3 22.8, O2 saturation 91.7, Base excess 1.0, A-a gradient 48, on room air * Given 6mg Decadron, 200mg remdesivir, 2gm Rocephin and 30mg Toradol in ED * Requiring 3L O2 via NC * Sepsis screen: * Elevated WBC with suspected PNA; Tachycardia, Fever, Tachypneic, with no signs of end organ dysfunction * Does not meet criteria * 12-lead EKG shows ectopic atrial tachycardia at 115 with RBBB and LAFB, ? lateral acute infarct in V5,V6, I, aVL, prolonged QTc at 616 * ED provider contacted Dr. Agustin with [facility] who was not concerned as patient had no chest pain * Repeat EKG grossly unchanged * Admitted to [facility] on telemetry for COVID-19 treatment and PNA treatment Plan: COVID-19 Right middle lobe pneumonia COPD (chronic obstructive pulmonary disease) Leukocytosis * Continue Rocephin day 2/5 * Start Azithromycin day 1/3 * Continue Remdesivir day 2/5 * Continue dexamethasone day 11/09 * O2 as needed * RT consult * PT/OT for strengthening * Ambulate around room * Prone when able * Continue home CPAP * Acapella/IS * Spiritual care consultation * All Around Gear Machine Operator consult * Monitor labs * Telemetry/continuous pulse ox * Obtain clinic records * Airborne/contact precautions * Tylenol for fever/pain Abnormal EKG * Repeat EKG today * Repeat troponin today and check CKMB * Telemetry DVT prophylaxis: Lovenox PCP: Dr. Jain Code status: DNR/DNI Disposition: Admit to hospital floor on telemetry for COVID-19 and CAP treatment. Likely LOS 5 days for COVID-19 treatment Prognosis: Good - Mortality Measure Prognosis:: Good
[2020-09-02] MEDS ORDERED: cefTRIAXone 2 GM in Sodium Chloride 0.9% 100 ML IV SCH (08:00)
[2020-09-02] MEDS: Azithromycin 250 MG Tab PO SCH (08:37)
[2020-09-02] MEDS: Enoxaparin 40 MG/0.4 ML Syringe SUBCUT SCH (08:38)
[2020-09-02] MEDS ORDERED: Levothyroxine 50 MCG Tab PO ONE (11:00)
[2020-09-02] MEDS: Formoterol/Mometasone 100-5 MCG 8.8 GM Inhaler IH SCH ×2 (15:27→20:44)
[2020-09-02] MEDS: Tamsulosin 0.4 MG Cap.ER PO SCH (18:00)
[2020-09-02] MEDS: Dexamethasone 4 MG Tab PO SCH (20:17)
[2020-09-02] MEDS: cefTRIAXone 2 GM in Sodium Chloride 0.9% 100 ML IV SCH (20:19)
[2020-09-03] MEDS: Levothyroxine 100 MCG Tab PO SCH (07:02)
[2020-09-03] MEDS: Levothyroxine 75 MCG Tab PO SCH (07:02)
[2020-09-03] MEDS: Formoterol/Mometasone 100-5 MCG 8.8 GM Inhaler IH SCH ×2 (08:14→20:41)
[2020-09-03] MEDS: Azithromycin 250 MG Tab PO SCH (08:19)
[2020-09-03] MEDS: Hydrochlorothiazide 12.5 MG Cap PO SCH ×2 (08:20→09:41)
[2020-09-03] MEDS: Enoxaparin 40 MG/0.4 ML Syringe SUBCUT SCH (08:20)
[2020-09-03] MEDS: Multivitamins,Therapeutic Tab PO SCH (08:20)
[2020-09-03] MEDS: Cholecalciferol (Vitamin D3) 25 MCG Tab PO SCH (11:06)
--- NOTE | 2020-09-03 16:03 | PCM.PN ---
- General Info Date of Service: 09/03/20 Admission Dx/Problem (Free Text): Admission Diagnosis/Problem Admission Diagnosis/Problem Hypoxia Subjective Update: Ray was doing well this morning. Oxygen saturations were in the low 90s on 3 L, but as the afternoon has progressed his oxygen saturations have worsened and he is now on 5 L. Patient is in good spirits and appetite is good. Functional Status: Reports: Pain Controlled - Review of Systems General: Reports: No Symptoms HEENT: Reports: No Symptoms Pulmonary: Reports: Shortness of Breath, Cough Gastrointestinal: Reports: No Symptoms Musculoskeletal: Reports: No Symptoms - Patient Data Vitals - Most Recent: Last Vital Signs Temp 97.5 F 09/03/20 12:03 Pulse 68 09/03/20 12:03 Resp 22 H 09/03/20 12:03 BP 104/55 L 09/03/20 12:03 Pulse Ox 88 L 09/03/20 13:56 Weight - Most Recent: 187 lb I&O - Last 24 Hours: Intake & Output 09/03/20 09/03/20 09/03/20 06:59 14:59 22:59 Intake Total 180 Balance 180 Lab Results Last 24 Hours: Laboratory Results - last 24 hr 09/03/20 09/03/20 09/03/20 Range/Units 05:16 05:16 05:16 WBC 19.17 H (4.23-9.07) K/mm3 RBC 4.61 L (4.63-6.08) M/mm3 Hgb 14.3 (13.7-17.5) gm/dl Hct 44.5 (40.1-51.0) % MCV 96.5 H (79.0-92.2) fl MCH 31.0 (25.7-32.2) pg MCHC 32.1 L (32.2-35.5) g/dl RDW Std Deviation 47.8 H (35.1-43.9) fL Plt Count 370 H (163-337) K/mm3 MPV 10.6 (9.4-12.3) fl Neut % (Auto) 93.4 H (34.0-67.9) % Lymph % (Auto) 1.6 L (21.8-53.1) % [place] % (Auto) 4.2 L (5.3-12.2) % Eos % (Auto) 0.1 L (0.8-7.0) Baso % (Auto) 0.0 L (0.1-1.2) % Neut # (Auto) 17.91 H (1.78-5.38) K/mm3 Lymph # (Auto) 0.31 L (1.32-3.57) K/mm3 [place] # (Auto) 0.80 (0.30-0.82) K/mm3 Eos # (Auto) 0.01 L (0.04-0.54) K/mm3 Baso # (Auto) 0.00 L (0.01-0.08) K/mm3 Manual Slide Review Abnormal smear D-Dimer, Quantitative 0.42 (0.19-0.50) mg/L Sodium 136 (136-145) mEq/L Potassium 3.9 (3.5-5.1) mEq/L Chloride 102 (98-107) mEq/L Carbon Dioxide 25 (21-32) mEq/L Anion Gap 12.9 (5-15) BUN 28 H (7-18) mg/dL Creatinine 1.0 (0.7-1.3) mg/dL Est Cr Clr Drug Dosing 64.84 mL/min Estimated GFR (MDRD) > 60 (>60) mL/min BUN/Creatinine Ratio 28.0 H (14-18) Glucose 134 H (83-115) mg/dL POC Glucose (83-110) mg/dL Calcium 8.4 L (8.5-10.1) mg/dL Magnesium 2.2 (1.8-2.4) mg/dl Total Bilirubin 0.5 (0.2-1.0) mg/dL AST 21 (15-37) U/L ALT 23 (16-63) U/L Alkaline Phosphatase 61 (46-116) U/L C-Reactive Protein 11.9 H* (<1.0) mg/dL Total Protein 5.7 L (6.4-8.2) g/dl Albumin 2.6 L (3.4-5.0) g/dl Globulin 3.1 gm/dL Albumin/Globulin Ratio 0.8 L (1-2) 09/03/ Range/Units 11:57 WBC (4.23-9.07) K/mm3 RBC (4.63-6.08) M/mm3 Hgb (13.7-17.5) gm/dl Hct (40.1-51.0) % MCV (79.0-92.2) fl MCH (25.7-32.2) pg MCHC (32.2-35.5) g/dl RDW Std Deviation (35.1-43.9) fL Plt Count (163-337) K/mm3 MPV (9.4-12.3) fl Neut % (Auto) (34.0-67.9) % Lymph % (Auto) (21.8-53.1) % [place] % (Auto) (5.3-12.2) % Eos % (Auto) (0.8-7.0) Baso % (Auto) (0.1-1.2) % Neut # (Auto) (1.78-5.38) K/mm3 Lymph # (Auto) (1.32-3.57) K/mm3 [place] # (Auto) (0.30-0.82) K/mm3 Eos # (Auto) (0.04-0.54) K/mm3 Baso # (Auto) (0.01-0.08) K/mm3 Manual Slide Review D-Dimer, Quantitative (0.19-0.50) mg/L Sodium (136-145) mEq/L Potassium (3.5-5.1) mEq/L Chloride (98-107) mEq/L Carbon Dioxide (21-32) mEq/L Anion Gap (5-15) BUN (7-18) mg/dL Creatinine (0.7-1.3) mg/dL Est Cr Clr Drug Dosing mL/min Estimated GFR (MDRD) (>60) mL/min BUN/Creatinine Ratio (14-18) Glucose (83-115) mg/dL POC Glucose 162 H (83-110) mg/dL Calcium (8.5-10.1) mg/dL Magnesium (1.8-2.4) mg/dl Total Bilirubin (0.2-1.0) mg/dL AST (15-37) U/L ALT (16-63) U/L Alkaline Phosphatase (46-116) U/L C-Reactive Protein (<1.0) mg/dL Total Protein (6.4-8.2) g/dl Albumin (3.4-5.0) g/dl Globulin gm/dL Albumin/Globulin Ratio (1-2) Mert Results Last 24 Hours: Microbiology 09/01/20 21:40 Aerobic Blood Culture - Preliminary Blood - Venous - Lab Draw NO GROWTH AFTER 1 DAY Anaerobic Blood Culture - Preliminary NO GROWTH AFTER 1 DAY 09/01/20 21:32 Aerobic Blood Culture - Preliminary Blood - Venous NO GROWTH AFTER 1 DAY Anaerobic Blood Culture - Preliminary NO GROWTH AFTER 1 DAY Med Orders - Current: Current Medications Acetaminophen (Tylenol) 650 mg PO Q4H PRN PRN Reason: Fever Greater Than 101 Hydrocodone Bitart/Acetaminophen ([place] 325-5 Mg) 1 tab PO Q4H PRN PRN Reason: Pain (moderate 4-6) Albuterol (Proventil Hfa) 0 gm INH Q4H PRN PRN Reason: Shortness of Breath Azithromycin (Zithromax) 500 mg PO DAILY [facility] Stop: 09/04/20 09:01 Last Admin: 09/03/20 08:19 Dose: 500 mg Documented by: Cholecalciferol (Vitamin D3) 50 mcg PO DAILY [facility] Last Admin: 09/03/20 11:06 Dose: 50 mcg Documented by: Dexamethasone (Dexamethasone) 6 mg PO 2100 [facility] Stop: 09/10/20 21:01 Last Admin: 09/02/20 20:17 Dose: 6 mg Documented by: Enoxaparin Sodium (Lovenox) 40 mg SUBCUT DAILY [facility] Last Admin: 09/03/20 08:20 Dose: 40 mg Documented by: Hydrochlorothiazide (Hydrochlorothiazide) 12.5 mg PO DAILY [facility] Last Admin: 09/03/20 09:41 Dose: Not Given Documented by: Remdesivir 100 mg/ Sodium (Chloride) 100 mls @ 100 mls/hr IV 2100 [facility] Stop: 09/06/20 21:59 Ceftriaxone Sodium 2 gm/ (Sodium Chloride) 100 mls @ 200 mls/hr IV 2100 [facility] Stop: 09/05/20 21:29 Last Admin: 09/02/20 20:19 Dose: 200 mls/hr Documented by: Levothyroxine Sodium (Synthroid) 100 mcg PO Q48H [facility] Last Admin: 09/03/20 07:02 Dose: 100 mcg Documented by: Levothyroxine Sodium (Levothyroxine) 75 mcg PO Q48H [facility] Last Admin: 09/03/20 07:02 Dose: 75 mcg Documented by: Levothyroxine Sodium (Synthroid) 150 mcg PO Q48H [facility] Mometasone Furoate/Formoterol Fumar (Dulera 100-5 Mcg) 2 puff IH BID [facility] Last Admin: 09/03/20 08:14 Dose: 2 inhalation Documented by: Multivitamins (Thera) 1 each PO DAILY [facility] Last Admin: 09/03/20 08:20 Dose: 1 each Documented by: Ondansetron HCl (Zofran) 4 mg IV Q6H PRN PRN Reason: Nausea/Vomiting Sodium Chloride (Saline Flush) 10 ml FLUSH ASDIRECTED PRN PRN Reason: Keep Vein Open Last Admin: 09/01/20 19:59 Dose: 10 ml Documented by: Tamsulosin HCl (Flomax) 0.4 mg PO PCDINNER [facility] Last Admin: 09/02/20 18:00 Dose: 0.4 mg Documented by: Discontinued Medications Dexamethasone (Decadron) 6 mg IVPUSH ONETIME ONE Stop: 09/01/20 21:07 Last Admin: 09/01/20 21:36 Dose: 6 mg Documented by: Remdesivir 200 mg/ Sodium (Chloride) 250 mls @ 250 mls/hr IV ONETIME ONE Stop: 09/01/20 21:07 Last Admin: 09/01/20 22:38 Dose: 250 mls/hr Documented by: Ceftriaxone Sodium 2 gm/ (Sodium Chloride) 100 mls @ 200 mls/hr IV ONETIME ONE Stop: 09/01/20 21:36 Last Admin: 09/01/20 21:37 Dose: 200 mls/hr Documented by: Ceftriaxone Sodium 2 gm/ (Sodium Chloride) 100 mls @ 200 mls/hr IV Q24H [facility] Stop: 09/05/20 08:29 Ketorolac Tromethamine (Toradol) 30 mg IVPUSH ONETIME ONE Stop: 09/01/20 20:36 Last Admin: 09/01/20 20:47 Dose: 30 mg Documented by: Levothyroxine Sodium (Synthroid) 150 mcg PO ONETIME ONE Stop: 09/02/20 11:01 Last Admin: 09/02/20 10:59 Dose: 150 mcg Documented by: - Exam Quality Assessment: Supplemental Oxygen General: Alert HEENT: Pupils Equal, Mucous Membr. Moist/[place] Neck: Supple Lungs: Rales (Bibasilar). No: Normal Respiratory Effort (Mildly increased rate and effort) Cardiovascular: Regular Rate, Regular Rhythm GI/Abdominal Exam: Normal Bowel Sounds, Soft, Non-Tender, No Distention Back Exam: Normal Inspection, Full Range of Motion Extremities: Normal Inspection, Normal Capillary Refill Skin: Warm, Dry, Intact Psy/Mental Status: Alert, Normal Affect, Normal Mood Sepsis Event Note - Evaluation Sepsis Screening Result: No Definite Risk - Focused Exam Vital Signs: Vital Signs Temp Pulse Resp BP Pulse Ox Pulse Ox 09/03/20 13:56 88 L 09/03/20 13:55 86 L 09/03/20 12:03 97.5 F 68 22 H 104/55 L 89 L 09/03/20 11:09 97.5 F 69 20 111/59 L 88 L 09/03/20 08:22 97.5 F 67 20 93/54 L 87 L 09/03/20 08:14 91 L 09/03/20 05:18 97.7 F 66 18 106/68 90 L - Problem List & Annotations (1) COVID-19 SNOMED Code(s): 852052855 Code(s): U07.1 - COVID-19 Status: Acute Priority: High Current Visit: Yes (2) Right middle lobe pneumonia SNOMED Code(s): 547142271 Code(s): J18.9 - PNEUMONIA, UNSPECIFIED ORGANISM Status: Acute Priority: High Current Visit: Yes Qualifiers: Pneumonia type: due to unspecified organism Qualified Code(s): J18.9 - Pneumonia, unspecified organism (3) COPD (chronic obstructive pulmonary disease) SNOMED Code(s): 91411939 Code(s): J44.9 - CHRONIC OBSTRUCTIVE PULMONARY DISEASE, UNSPECIFIED Status: Chronic Priority: Medium Current Visit: Yes Qualifiers: COPD type: unspecified COPD Qualified Code(s): J44.9 - Chronic obstructive pulmonary disease, unspecified - Problem List Review Problem List Initiated/Reviewed/Updated: Yes - My Orders Last 24 Hours: My Active Orders 09/02/20 Dinner Regular Diet [DIET] - Plan Plan:: Assessment - Day of admission * 79 yo male who was diagnosed with COVID-19 prior to * Was in [place] on 09/01/2020 for bamlanivimab treatment * [place] worse on ride home (SOB and chills) and presented to ED * Labs * WBC 17.02--> 29.9-->19.2 * PLT 393-->370 * D-Dimer 0.68-->0.42 * Sodium 136 * Creatinine 1.2, GFR 59 * Glucose 134 * CRP 9.3-->11.9 * Given 6mg Decadron, 200mg remdesivir, 2gm Rocephin and 30mg Toradol in ED * Continuing Decadron, remdesivir, Rocephin, and azithromycin * Requiring 3L O2 via NC * Sepsis screen: * Elevated WBC with suspected PNA; Tachycardia, Fever, Tachypneic, with no signs of end organ dysfunction * Does not meet criteria * 12-lead EKG shows ectopic atrial tachycardia at 115 with RBBB and LAFB, ? lateral acute infarct in V5,V6, I, aVL, prolonged QTc at 616 * ED provider contacted Dr. Agustin with [facility] who was not concerned as patient had no chest pain * Repeat EKG grossly unchanged * Admitted to [facility] on telemetry for COVID-19 treatment and PNA treatment Plan: COVID-19 Right middle lobe pneumonia COPD (chronic obstructive pulmonary disease) Leukocytosis * Continue Rocephin day 3/5 * Start Azithromycin day 2/3 * Continue Remdesivir day 3/5 * Continue dexamethasone day 12/07 * Chest x-ray in the morning * O2 as needed * RT consult * PT/OT for strengthening * Ambulate around room * Prone when able * Continue home CPAP * Acapella/IS * Spiritual care consultation * Foundry Equipment Mechanic consult * Monitor labs * Telemetry/continuous pulse ox * Obtain clinic records * Airborne/contact precautions * Tylenol for fever/pain Abnormal EKG * Repeat EKG today * Repeat troponin today and check CKMB * Telemetry DVT prophylaxis: Lovenox PCP: Dr. Jain Code status: DNR/DNI Disposition: Admit to hospital floor on telemetry for COVID-19 and CAP treatment. Likely LOS 5 days for COVID-19 treatment Prognosis: Good I spoke with Maxwell's at 1600 and updated her on his condition. I did tell her I was concerned about the increasing oxygen requirement this afternoon. She voiced understanding and I will keep her updated.
[2020-09-03] MEDS ORDERED: Docusate Sodium 100 MG Cap PO PRN (16:23)
[2020-09-03] MEDS ORDERED: Bisacodyl 5 MG Tab PO PRN (16:23)
[2020-09-03] MEDS: Tamsulosin 0.4 MG Cap.ER PO SCH (18:18)
[2020-09-03] MEDS: Dexamethasone 4 MG Tab PO SCH (21:00)
[2020-09-03] MEDS: cefTRIAXone 2 GM in Sodium Chloride 0.9% 100 ML IV SCH (21:00)
[2020-09-03] MEDS: REMDESIVIR 100 MG in Sodium Chloride 0.9% 100 ML IV SCH (21:29)
[2020-09-03] MEDS: Acetaminophen 325 MG Tab PO PRN (21:51)
[2020-09-04] MEDS: Levothyroxine 50 MCG Tab PO SCH (06:35)
[2020-09-04] MEDS: Acetaminophen 325 MG Tab PO PRN ×2 (06:41→20:01)
[2020-09-04] MEDS: Albuterol 6.7 GM Inhaler INH PRN ×2 (08:22→20:43)
[2020-09-04] MEDS: Formoterol/Mometasone 100-5 MCG 8.8 GM Inhaler IH SCH ×2 (08:24→20:42)
[2020-09-04] MEDS: Enoxaparin 40 MG/0.4 ML Syringe SUBCUT SCH (08:46)
[2020-09-04] MEDS: Multivitamins,Therapeutic Tab PO SCH (08:47)
[2020-09-04] MEDS: Hydrochlorothiazide 12.5 MG Cap PO SCH (08:47)
[2020-09-04] MEDS: Cholecalciferol (Vitamin D3) 25 MCG Tab PO SCH (08:48)
[2020-09-04] MEDS: Azithromycin 250 MG Tab PO SCH (08:57)
--- NOTE | 2020-09-04 09:19 | PCM.PN ---
- General Info Date of Service: 09/04/20 Admission Dx/Problem (Free Text): Admission Diagnosis/Problem Admission Diagnosis/Problem Hypoxia Subjective Update: Patient was increased to 6 L/min via nasal cannula last night and has been able to have that weaned down to 5 L this afternoon. Patient states that he is feeling a little better than yesterday. Denies any fever, chills, or night sweats. In the afternoon on the telemetry nurse was concerned because of his heart rate was reading as V. tach with a ventricular rate in the 80s 90s. EKG was performed which showed no change from EKG on 09/02/2020 with ventricular rate of 64 bpm and nonspecific IVCD with LAD. This is likely being overly read by the telemetry machine as V. tach. Functional Status: Reports: Pain Controlled - Review of Systems General: Reports: Fatigue HEENT: Reports: No Symptoms Pulmonary: Reports: Cough Cardiovascular: Reports: No Symptoms Gastrointestinal: Reports: No Symptoms Musculoskeletal: Reports: No Symptoms - Patient Data Vitals - Most Recent: Last Vital Signs Temp 97.5 F 09/04/20 03:56 Pulse 62 09/04/20 03:56 Resp 20 09/04/20 03:56 BP 121/63 09/04/20 03:56 Pulse Ox 93 L 09/04/20 08:24 Weight - Most Recent: 191 lb 11.2 oz I&O - Last 24 Hours: Intake & Output 09/03/20 09/04/20 09/04/20 22:59 06:59 14:59 Intake Total 1840 1600 Output Total 700 1450 Balance 1140 150 Lab Results Last 24 Hours: Laboratory Results - last 24 hr 09/03/20 09/04/20 09/04/20 Range/Units 11:57 04:13 04:13 WBC 22.53 H (4.23-9.07) K/mm3 RBC 4.62 L (4.63-6.08) M/mm3 Hgb 14.4 (13.7-17.5) gm/dl Hct 44.9 (40.1-51.0) % MCV 97.2 H (79.0-92.2) fl MCH 31.2 (25.7-32.2) pg MCHC 32.1 L (32.2-35.5) g/dl RDW Std Deviation 47.8 H (35.1-43.9) fL Plt Count 423 H (163-337) K/mm3 MPV 10.6 (9.4-12.3) fl Neut % (Auto) 95.4 H (34.0-67.9) % Lymph % (Auto) 1.2 L (21.8-53.1) % [place] % (Auto) 2.6 L (5.3-12.2) % Eos % (Auto) 0 L (0.8-7.0) Baso % (Auto) 0.0 L (0.1-1.2) % Neut # (Auto) 21.47 H (1.78-5.38) K/mm3 Lymph # (Auto) 0.28 L (1.32-3.57) K/mm3 [place] # (Auto) 0.59 (0.30-0.82) K/mm3 Eos # (Auto) 0.01 L (0.04-0.54) K/mm3 Baso # (Auto) 0.01 (0.01-0.08) K/mm3 Manual Slide Review Abnormal smear Sodium 136 (136-145) mEq/L Potassium 3.6 (3.5-5.1) mEq/L Chloride 102 (98-107) mEq/L Carbon Dioxide 25 (21-32) mEq/L Anion Gap 12.6 (5-15) BUN 30 H (7-18) mg/dL Creatinine 1.0 (0.7-1.3) mg/dL Est Cr Clr Drug Dosing 64.84 mL/min Estimated GFR (MDRD) > 60 (>60) mL/min BUN/Creatinine Ratio 30.0 H (14-18) Glucose 156 H (83-115) mg/dL POC Glucose 162 H (83-110) mg/dL Calcium 8.4 L (8.5-10.1) mg/dL Magnesium 2.2 (1.8-2.4) mg/dl Total Bilirubin 0.5 (0.2-1.0) mg/dL AST 18 (15-37) U/L ALT 25 (16-63) U/L Alkaline Phosphatase 60 (46-116) U/L C-Reactive Protein 4.9 H* (<1.0) mg/dL Total Protein 5.7 L (6.4-8.2) g/dl Albumin 2.6 L (3.4-5.0) g/dl Globulin 3.1 gm/dL Albumin/Globulin Ratio 0.8 L (1-2) Mert Results Last 24 Hours: Microbiology 09/01/20 21:40 Aerobic Blood Culture - Preliminary Blood - Venous - Lab Draw NO GROWTH AFTER 2 DAYS Anaerobic Blood Culture - Preliminary NO GROWTH AFTER 2 DAYS 09/01/20 21:32 Aerobic Blood Culture - Preliminary Blood - Venous NO GROWTH AFTER 2 DAYS Anaerobic Blood Culture - Preliminary NO GROWTH AFTER 2 DAYS Med Orders - Current: Current Medications Acetaminophen (Tylenol) 650 mg PO Q4H PRN PRN Reason: Fever Greater Than 101 Last Admin: 09/04/20 06:41 Dose: 650 mg Documented by: Hydrocodone Bitart/Acetaminophen ([place] 325-5 Mg) 1 tab PO Q4H PRN PRN Reason: Pain (moderate 4-6) Albuterol (Proventil Hfa) 0 gm INH Q4H PRN PRN Reason: Shortness of Breath Last Admin: 09/04/20 08:22 Dose: 2 inhalation Documented by: Bisacodyl (Dulcolax) 5 mg PO DAILY PRN PRN Reason: Constipation Cholecalciferol (Vitamin D3) 50 mcg PO DAILY [facility] Last Admin: 09/04/20 08:48 Dose: 50 mcg Documented by: Dexamethasone (Dexamethasone) 6 mg PO 2099 [facility] Stop: 09/10/20 21:01 Last Admin: 09/03/20 21:00 Dose: 6 mg Documented by: Docusate Sodium (Colace) 100 mg PO BID PRN PRN Reason: Constipation Last Admin: 09/03/20 18:18 Dose: 100 mg Documented by: Enoxaparin Sodium (Lovenox) 40 mg SUBCUT DAILY [facility] Last Admin: 09/04/20 08:46 Dose: 40 mg Documented by: Hydrochlorothiazide (Hydrochlorothiazide) 12.5 mg PO DAILY [facility] Last Admin: 09/04/20 08:47 Dose: 12.5 mg Documented by: Remdesivir 100 mg/ Sodium (Chloride) 100 mls @ 100 mls/hr IV 2099 [facility] Stop: 09/06/20 21:59 Last Admin: 09/03/20 21:29 Dose: 100 mls/hr Documented by: Ceftriaxone Sodium 2 gm/ (Sodium Chloride) 100 mls @ 200 mls/hr IV 2099 [facility] Stop: 09/05/20 21:29 Last Admin: 09/03/20 21:00 Dose: 200 mls/hr Documented by: Levothyroxine Sodium (Synthroid) 100 mcg PO Q48H [facility] Last Admin: 09/03/20 07:02 Dose: 100 mcg Documented by: Levothyroxine Sodium (Levothyroxine) 75 mcg PO Q48H [facility] Last Admin: 09/03/20 07:02 Dose: 75 mcg Documented by: Levothyroxine Sodium (Synthroid) 150 mcg PO Q48H [facility] Last Admin: 09/04/20 06:35 Dose: 150 mcg Documented by: Mometasone Furoate/Formoterol Fumar (Dulera 100-5 Mcg) 2 puff IH BID [facility] Last Admin: 09/04/20 08:24 Dose: 2 inhalation Documented by: Multivitamins (Thera) 1 each PO DAILY [facility] Last Admin: 09/04/20 08:47 Dose: 1 each Documented by: Ondansetron HCl (Zofran) 4 mg IV Q6H PRN PRN Reason: Nausea/Vomiting Sodium Chloride (Saline Flush) 10 ml FLUSH ASDIRECTED PRN PRN Reason: Keep Vein Open Last Admin: 09/01/20 19:59 Dose: 10 ml Documented by: Tamsulosin [facility] ([facility]omax) [facility] Last Admin: 09/03/20 18:18 Dose: 0.4 mg Documented by: Discontinued Medications Azithromycin (Zithromax) 500 mg PO DAILY [facility] Stop: 09/04/20 09:01 Last Admin: 09/04/20 08:57 Dose: 500 mg Documented by: Dexamethasone (Decadron) 6 mg IVPUSH ONETIME ONE Stop: 09/01/20 21:07 Last Admin: 09/01/20 21:36 Dose: 6 mg Documented by: Remdesivir 200 mg/ Sodium (Chloride) 250 mls @ 250 mls/hr IV ONETIME ONE Stop: 09/01/20 21:07 Last Admin: 09/01/20 22:38 Dose: 250 mls/hr Documented by: Ceftriaxone Sodium 2 gm/ (Sodium Chloride) 100 mls @ 200 mls/hr IV ONETIME ONE Stop: 09/01/20 21:36 Last Admin: 09/01/20 21:37 Dose: 200 mls/hr Documented by: Ceftriaxone Sodium 2 gm/ (Sodium Chloride) 100 mls @ 200 mls/hr IV Q24H [facility] Stop: 09/05/20 08:29 Ketorolac Tromethamine (Toradol) 30 mg IVPUSH ONETIME ONE Stop: 09/01/20 20:36 Last Admin: 09/01/20 20:47 Dose: 30 mg Documented by: Levothyroxine Sodium (Synthroid) 150 mcg PO ONETIME ONE Stop: 09/02/20 11:01 Last Admin: 09/02/20 10:59 Dose: 150 mcg Documented by: - Exam Quality Assessment: Supplemental Oxygen General: Alert, Oriented HEENT: Pupils Equal Neck: Supple Lungs: Normal Respiratory Effort, Rales Cardiovascular: Regular Rate, Regular Rhythm Extremities: Normal Inspection, Normal Capillary Refill Peripheral Pulses: 2+: Posterior Tibial (L), Posterior Tibial (R), Dorsalis Pedis (L), Dorsalis Pedis (R) Skin: Warm, Dry, Intact Psy/Mental Status: Alert, Normal Affect, Normal Mood Sepsis Event Note - Evaluation Sepsis Screening Result: No Definite Risk - Focused Exam Vital Signs: Vital Signs Temp Temp Pulse Pulse Resp BP BP 09/04/20 08:24 09/04/20 03:56 97.5 F 62 20 121/63 09/03/20 23:30 97.1 F 70 20 121/76 Pulse Ox Pulse Ox 09/04/20 08:24 93 L 09/04/20 03:56 92 L 09/03/20 23:30 93 L - Problem List & Annotations (1) COVID-19 SNOMED Code(s): 181203339 Code(s): U07.1 - COVID-19 Status: Acute Priority: High Current Visit: Yes (2) Right middle lobe pneumonia SNOMED Code(s): 758497786 Code(s): J18.9 - PNEUMONIA, UNSPECIFIED ORGANISM Status: Acute Priority: High Current Visit: Yes Qualifiers: Pneumonia type: due to unspecified organism Qualified Code(s): J18.9 - Pneumonia, unspecified organism (3) COPD (chronic obstructive pulmonary disease) SNOMED Code(s): 28747089 Code(s): J44.9 - CHRONIC OBSTRUCTIVE PULMONARY DISEASE, UNSPECIFIED Status: Chronic Priority: Medium Current Visit: Yes Qualifiers: COPD type: unspecified COPD Qualified Code(s): J44.9 - Chronic obstructive pulmonary disease, unspecified - Problem List Review Problem List Initiated/Reviewed/Updated: Yes - My Orders Last 24 Hours: My Active Orders 09/03/20 16:23 Docusate Sodium [Colace] 100 mg PO BID PRN bisacodyL [Dulcolax] 5 mg PO DAILY PRN 09/04/20 09:00 CXR [Chest 1V Frontal] [CR] Routine - Plan Plan:: Assessment * 79 yo male who was diagnosed with COVID-19 prior to * Was in [place] on 09/01/2020 for bamlanivimab treatment * [place] worse on ride home (SOB and chills) and presented to ED * Labs * WBC 17.02--> 29.9-->19.2-->22.5 * PLT 393-->370-->423 * D-Dimer 0.68-->0.42 * Sodium 136 * Creatinine 1.2, GFR 59 * Glucose 156 * CRP 9.3-->11.9-->4.9 * Given 6mg Decadron, 200mg remdesivir, 2gm Rocephin and 30mg Toradol in ED * Continuing Decadron, remdesivir, Rocephin, and azithromycin * Requiring 3L O2 via NC * Sepsis screen: * Elevated WBC with suspected PNA; Tachycardia, Fever, Tachypneic, with no signs of end organ dysfunction * Does not meet criteria * 12-lead EKG shows ectopic atrial tachycardia at 115 with RBBB and LAFB, ? lateral acute infarct in V5,V6, I, aVL, prolonged QTc at 616 * ED provider contacted Dr. Agustin with [facility] who was not concerned as patient had no chest pain * Repeat EKG grossly unchanged * Admitted to [facility] on telemetry for COVID-19 treatment and PNA treatment Plan: COVID-19 Right middle lobe pneumonia COPD (chronic obstructive pulmonary disease) Leukocytosis * Continue Rocephin day 4/5 * Continue azithromycin day 3/3 * Continue Remdesivir day 4/5 * Continue dexamethasone day /10 * Chest x-ray in the morning * O2 as needed * RT consult * PT/OT for strengthening * Ambulate around room * Prone when able * Continue home CPAP * Acapella/IS * Spiritual care consultation * Enterprise Resource Planning Consultant consult * Monitor labs * Telemetry/continuous pulse ox * Review clinic records * Airborne/contact precautions * Tylenol for fever/pain Abnormal EKG * Repeat EKG todayno change * Telemetry DVT prophylaxis: Lovenox PCP: Dr. Jain Code status: DNR/DNI Disposition: Admit to hospital floor on telemetry for COVID-19 and CAP treatment. Likely LOS 5 days for COVID-19 treatment Prognosis: Good Length of stay greater than 96 hours secondary to COVID-19 treatment and continued high level of oxygen support.
--- NOTE | 2020-09-04 12:58 | CR ---
Chest: Portable view of the chest was obtained. Comparison: Prior chest x-ray of 09/01/20. Findings: Lungs: Slight increased density with the right upper lung is seen which appears slightly decreased in prominence from prior study. Minimal basilar atelectasis is noted. Left hemidiaphragm is elevated which is stable. No acute parenchymal process is otherwise seen. Heart size and mediastinum: Heart size is normal. Mild tortuosity of thoracic aorta seen. Osseous: No acute osseous findings are seen. Impression: 1. Slight increased density within the right upper lung which has minimally improved from prior exam. 2. Mild bibasilar atelectasis and other findings believed to be chronic as noted above. Diagnostic code #3
[2020-09-04] MEDS: Tamsulosin 0.4 MG Cap.ER PO SCH (18:17)
[2020-09-04] MEDS: cefTRIAXone 2 GM in Sodium Chloride 0.9% 100 ML IV SCH (19:59)
[2020-09-04] MEDS: Dexamethasone 4 MG Tab PO SCH (20:00)
[2020-09-04] MEDS: REMDESIVIR 100 MG in Sodium Chloride 0.9% 100 ML IV SCH (20:20)
[2020-09-05] MEDS: Levothyroxine 100 MCG Tab PO SCH (05:23)
[2020-09-05] MEDS: Levothyroxine 75 MCG Tab PO SCH (05:23)
[2020-09-05] MEDS: Acetaminophen 325 MG Tab PO PRN ×2 (07:15→22:11)
[2020-09-05] MEDS: Albuterol 6.7 GM Inhaler INH PRN ×2 (08:32→20:13)
[2020-09-05] MEDS: Formoterol/Mometasone 100-5 MCG 8.8 GM Inhaler IH SCH ×2 (08:33→20:13)
--- NOTE | 2020-09-05 08:38 | PCM.PN ---
- General Info Date of Service: 09/05/20 Admission Dx/Problem (Free Text): Admission Diagnosis/Problem Admission Diagnosis/Problem Hypoxia Subjective Update: Cristo continues to do well. He is up ambulating in the room and proning when sleeping. He continues to utilize his IS and acapella. He is down to 3L via NC. Will continue COVID-19 treatment. Hopefull for discharge in next 48-72 hours pending continued improvement. Functional Status: Reports: Pain Controlled, Tolerating Diet, Ambulating, Urinating, Incentive Spirometry, Other (Acapella ). Denies: New Symptoms - Review of Systems General: Reports: Weakness (improving ), Fatigue (improving ). Denies: Fever, Malaise, Chills HEENT: Reports: No Symptoms. Denies: Headaches, Post Nasal Drip, Sore Throat Pulmonary: Reports: Shortness of Breath (improving ), Cough, Sputum. Denies: Pleuritic Chest Pain, Wheezing Cardiovascular: Reports: Dyspnea on Exertion (improving ). Denies: Chest Pain, Palpitations Gastrointestinal: Reports: No Symptoms. Denies: Abdominal Pain, Constipation, Diarrhea, Nausea, Vomiting Genitourinary: Reports: No Symptoms. Denies: Pain Musculoskeletal: Reports: No Symptoms Skin: Reports: No Symptoms. Denies: Cyanosis Neurological: Reports: No Symptoms. Denies: Confusion, Numbness, Tingling, Difficulty Walking, Gait Disturbance Psychiatric: Reports: No Symptoms - Patient Data Vitals - Most Recent: Last Vital Signs Temp 98.2 F 09/05/20 05:17 Pulse 64 09/05/20 05:17 Resp 15 09/05/20 05:17 BP 104/79 09/05/20 05:17 Pulse Ox 92 L 09/05/20 05:17 Weight - Most Recent: 192 lb 4.8 oz I&O - Last 24 Hours: Intake & Output 09/04/20 09/05/20 09/05/20 22:59 06:59 14:59 Intake Total 1400 800 Output Total 750 1050 Balance 650 -250 Lab Results Last 24 Hours: Laboratory Results - last 24 hr 09/05/20 09/05/20 09/05/20 Range/Units 05:35 05:35 05:35 WBC 22.59 H (4.23-9.07) K/mm3 RBC 4.86 (4.63-6.08) M/mm3 Hgb 15.1 (13.7-17.5) gm/dl Hct 47.5 (40.1-51.0) % MCV 97.7 H (79.0-92.2) fl MCH 31.1 (25.7-32.2) pg MCHC 31.8 L (32.2-35.5) g/dl RDW Std Deviation 49.3 H (35.1-43.9) fL Plt Count 378 H (163-337) K/mm3 MPV 10.7 (9.4-12.3) fl Neut % (Auto) 93.2 H (34.0-67.9) % Lymph % (Auto) 1.5 L (21.8-53.1) % [place] % (Auto) 4.0 L (5.3-12.2) % Eos % (Auto) 0.1 L (0.8-7.0) Baso % (Auto) 0.0 L (0.1-1.2) % Neut # (Auto) 21.02 H (1.78-5.38) K/mm3 Lymph # (Auto) 0.35 L (1.32-3.57) K/mm3 [place] # (Auto) 0.91 H (0.30-0.82) K/mm3 Eos # (Auto) 0.03 L (0.04-0.54) K/mm3 Baso # (Auto) 0.01 (0.01-0.08) K/mm3 Manual Slide Review Abnormal smear D-Dimer, Quantitative 0.96 H (0.19-0.50) mg/L Sodium 135 L (136-145) mEq/L Potassium 3.8 (3.5-5.1) mEq/L Chloride 101 (98-107) mEq/L Carbon Dioxide 28 (21-32) mEq/L Anion Gap 9.8 (5-15) BUN 25 H (7-18) mg/dL Creatinine 0.9 (0.7-1.3) mg/dL Est Cr Clr Drug Dosing 72.05 mL/min Estimated GFR (MDRD) > 60 (>60) mL/min BUN/Creatinine Ratio 27.8 H (14-18) Glucose 105 (83-115) mg/dL Calcium 9.0 (8.5-10.1) mg/dL Magnesium 2.2 (1.8-2.4) mg/dl Total Bilirubin 0.6 (0.2-1.0) mg/dL AST 19 (15-37) U/L ALT 32 (16-63) U/L Alkaline Phosphatase 72 (46-116) U/L C-Reactive Protein 3.0 H* (<1.0) mg/dL Total Protein 6.1 L (6.4-8.2) g/dl Albumin 2.8 L (3.4-5.0) g/dl Globulin 3.3 gm/dL Albumin/Globulin Ratio 0.9 L (1-2) Mert Results Last 24 Hours: Microbiology 09/01/20 21:40 Aerobic Blood Culture - Preliminary Blood - Venous - Lab Draw NO GROWTH AFTER 3 DAYS Anaerobic Blood Culture - Preliminary NO GROWTH AFTER 3 DAYS 09/01/20 21:32 Aerobic Blood Culture - Preliminary Blood - Venous NO GROWTH AFTER 3 DAYS Anaerobic Blood Culture - Preliminary NO GROWTH AFTER 3 DAYS Med Orders - Current: Current Medications Acetaminophen (Tylenol) 650 mg PO Q4H PRN PRN Reason: Fever Greater Than 101 Last Admin: 09/05/20 07:15 Dose: 650 mg Documented by: Hydrocodone Bitart/Acetaminophen ([place] 325-5 Mg) 1 tab PO Q4H PRN PRN Reason: Pain (moderate 4-6) Albuterol (Proventil Hfa) 0 gm INH Q4H PRN PRN Reason: Shortness of Breath Last Admin: 09/05/20 08:32 Dose: 2 inhalation Documented by: Bisacodyl (Dulcolax) 5 mg PO DAILY PRN PRN Reason: Constipation Cholecalciferol (Vitamin D3) 50 mcg PO DAILY [facility] Last Admin: 09/04/20 08:48 Dose: 50 mcg Documented by: Dexamethasone (Dexamethasone) 6 mg PO 2100 [facility] Stop: 09/10/20 21:01 Last Admin: 09/04/20 20:00 Dose: 6 mg Documented by: Docusate Sodium (Colace) 100 mg PO BID PRN PRN Reason: Constipation Last Admin: 09/03/20 18:18 Dose: 100 mg Documented by: Enoxaparin Sodium (Lovenox) 40 mg SUBCUT DAILY [facility] Last Admin: 09/04/20 08:46 Dose: 40 mg Documented by: Hydrochlorothiazide (Hydrochlorothiazide) 12.5 mg PO DAILY [facility] Last Admin: 09/04/20 08:47 Dose: 12.5 mg Documented by: Remdesivir 100 mg/ Sodium (Chloride) 100 mls @ 100 mls/hr IV 2100 [facility] Stop: 09/06/20 21:59 Last Admin: 09/04/20 20:20 Dose: 100 mls/hr Documented by: Ceftriaxone Sodium 2 gm/ (Sodium Chloride) 100 mls @ 200 mls/hr IV 2100 [facility] Stop: 09/05/20 21:29 Last Admin: 09/04/20 19:59 Dose: 200 mls/hr Documented by: Levothyroxine Sodium (Synthroid) 100 mcg PO Q48H [facility] Last Admin: 09/05/20 05:23 Dose: 100 mcg Documented by: Levothyroxine Sodium (Levothyroxine) 75 mcg PO Q48H [facility] Last Admin: 09/05/20 05:23 Dose: 75 mcg Documented by: Levothyroxine Sodium (Synthroid) 150 mcg PO Q48H [facility] Last Admin: 09/04/20 06:35 Dose: 150 mcg Documented by: Mometasone Furoate/Formoterol Fumar (Dulera 100-5 Mcg) 2 puff IH BID [facility] Last Admin: 09/05/20 08:33 Dose: 2 inhalation Documented by: Multivitamins (Thera) 1 each PO DAILY [facility] Last Admin: 09/04/20 08:47 Dose: 1 each Documented by: Ondansetron HCl (Zofran) 4 mg IV Q6H PRN PRN Reason: Nausea/Vomiting Sodium Chloride (Saline Flush) 10 ml FLUSH ASDIRECTED PRN PRN Reason: Keep Vein Open Last Admin: 09/01/20 19:59 Dose: 10 ml Documented by: Tamsulosin HCl (Flomax) 0.4 mg [facility] Last Admin: 09/04/20 18:17 Dose: 0.4 mg Documented by: Discontinued Medications Azithromycin (Zithromax) 500 mg PO DAILY [facility] Stop: 09/04/20 09:01 Last Admin: 09/04/20 08:57 Dose: 500 mg Documented by: Dexamethasone (Decadron) 6 mg IVPUSH ONETIME ONE Stop: 09/01/20 21:07 Last Admin: 09/01/20 21:36 Dose: 6 mg Documented by: Remdesivir 200 mg/ Sodium (Chloride) 250 mls @ 250 mls/hr IV ONETIME ONE Stop: 09/01/20 21:07 Last Admin: 09/01/20 22:38 Dose: 250 mls/hr Documented by: Ceftriaxone Sodium 2 gm/ (Sodium Chloride) 100 mls @ 200 mls/hr IV ONETIME ONE Stop: 09/01/20 21:36 Last Admin: 09/01/20 21:37 Dose: 200 mls/hr Documented by: Ceftriaxone Sodium 2 gm/ (Sodium Chloride) 100 mls @ 200 mls/hr IV Q24H [facility] Stop: 09/05/20 08:29 Ketorolac Tromethamine (Toradol) 30 mg IVPUSH ONETIME ONE Stop: 09/01/20 20:36 Last Admin: 09/01/20 20:47 Dose: 30 mg Documented by: Levothyroxine Sodium (Synthroid) 150 mcg PO ONETIME ONE Stop: 09/02/20 11:01 Last Admin: 09/02/20 10:59 Dose: 150 mcg Documented by: - Exam Quality Assessment: Supplemental Oxygen (3L ), DVT Prophylaxis General: Alert, Oriented, Cooperative, No Acute Distress HEENT: Pupils Equal, Pupils Reactive, Mucous Membr. Moist/[place] Neck: Supple, Trachea Midline Lungs: Normal Respiratory Effort, Decreased Breath Sounds, Rales Cardiovascular: Regular Rate, Regular Rhythm GI/Abdominal Exam: Normal Bowel Sounds, Soft, Non-Tender, No Distention (Male) Exam: Deferred Back Exam: Normal Inspection, Full Range of Motion Extremities: Normal Inspection, Normal Range of Motion, Non-Tender, No Pedal Edema, Normal Capillary Refill Skin: Warm, Dry, Intact Neurological: No New Focal Deficit Psy/Mental Status: Alert, Normal Affect, Normal Mood Sepsis Event Note - Evaluation Sepsis Screening Result: No Definite Risk - Focused Exam Vital Signs: Vital Signs Temp Pulse Resp BP Pulse Ox Pulse Ox 09/05/20 05:17 98.2 F 64 15 104/79 92 L 09/04/20 23:17 97.3 F 84 20 128/76 97 09/04/20 20:46 95 - Problem List & Annotations (1) Abnormal EKG SNOMED Code(s): 816999054 Code(s): R94.31 - ABNORMAL ELECTROCARDIOGRAM [ECG] [EKG] Status: Acute Priority: High Current Visit: Yes (2) COVID-19 SNOMED Code(s): 278645560 Code(s): U07.1 - COVID-19 Status: Acute Priority: High Current Visit: Yes (3) Right middle lobe pneumonia SNOMED Code(s): 969288343 Code(s): J18.9 - PNEUMONIA, UNSPECIFIED ORGANISM Status: Acute Priority: High Current Visit: Yes Qualifiers: Pneumonia type: due to unspecified organism Qualified Code(s): J18.9 - Pneumonia, unspecified organism (4) COPD (chronic obstructive pulmonary disease) SNOMED Code(s): 87195286 Code(s): J44.9 - CHRONIC OBSTRUCTIVE PULMONARY DISEASE, UNSPECIFIED Status: Chronic Priority: Medium Current Visit: Yes Qualifiers: COPD type: unspecified COPD Qualified Code(s): J44.9 - Chronic obstructive pulmonary disease, unspecified - Problem List Review Problem List Initiated/Reviewed/Updated: Yes - My Orders Last 24 Hours: My Active Orders 09/06/20 05:11 CBC WITH AUTO DIFF [HEME] AM CMP [COMPREHENSIVE METABOLIC PN,CMP] [CHEM] AM CRP [C-REACTIVE PROTEIN] [CHEM] AM MAGNESIUM [CHEM] AM - Assessment Assessment:: Assessment * 79 yo male who was diagnosed with COVID-19 on 08/29/2020 (patient originally reported before ) * Was in [place] on 09/01/2020 for bamlanivimab treatment * [place] worse on ride home (SOB and chills) and presented to ED * Labs * WBC 17.02--> 29.9-->19.2-->22.5-->22.59 * PLT 393-->370-->423-->378 * D-Dimer 0.68-->0.42-->0.96 * Sodium 136-->135 * Creatinine 1.2, GFR 59-->0.9/>60 * Glucose 156-->105 * CRP 9.3-->11.9-->4.9-->3.0 * Given 6mg Decadron, 200mg remdesivir, 2gm Rocephin and 30mg Toradol in ED * Continuing Decadron, remdesivir, Rocephin, and azithromycin * Requiring 3L O2 via NC * Sepsis screen: * Elevated WBC with suspected PNA; Tachycardia, Fever, Tachypneic, with no signs of end organ dysfunction * Does not meet criteria * 12-lead EKG shows ectopic atrial tachycardia at 115 with RBBB and LAFB, ? lateral acute infarct in V5,V6, I, aVL, prolonged QTc at 616 * ED provider contacted Dr. Agustin with [facility] who was not concerned as patient had no chest pain * Repeat EKG grossly unchanged * Admitted to [facility] on telemetry for COVID-19 treatment and PNA treatment - Plan Plan:: COVID-19 Right middle lobe pneumonia COPD (chronic obstructive pulmonary disease) Leukocytosis * Continue Rocephin day 5/ * Completed azithromycin * Continue Remdesivir day 3/ * Continue dexamethasone day 01/06 * O2 as needed * RT consult * PT/OT for strengthening * Ambulate around room * Prone when able * Continue home CPAP * Acapella/IS * Spiritual care consultation * Coal Sample Tester consult * Monitor labs * Telemetry/continuous pulse ox * Review clinic records * Airborne/contact precautions * Tylenol for fever/pain Abnormal EKG, stable * Repeat EKG shows no change * Telemetry DVT prophylaxis: Lovenox PCP: Dr. Jain Code status: DNR/DNI Disposition: Admit to hospital floor on telemetry for COVID-19 and CAP treatment. Likely LOS 5 days for COVID-19 treatment Prognosis: Good Length of stay greater than 96 hours secondary to COVID-19 treatment and continued high level of oxygen support.
[2020-09-05] MEDS: Hydrochlorothiazide 12.5 MG Cap PO SCH (09:04)
[2020-09-05] MEDS: Multivitamins,Therapeutic Tab PO SCH (09:04)
[2020-09-05] MEDS: Enoxaparin 40 MG/0.4 ML Syringe SUBCUT SCH (09:04)
[2020-09-05] MEDS: Cholecalciferol (Vitamin D3) 25 MCG Tab PO SCH (09:04)
[2020-09-05] MEDS: Tamsulosin 0.4 MG Cap.ER PO SCH (19:09)
[2020-09-05] MEDS: Dexamethasone 4 MG Tab PO SCH (20:19)
[2020-09-05] MEDS: REMDESIVIR 100 MG in Sodium Chloride 0.9% 100 ML IV SCH (20:20)
[2020-09-05] MEDS: cefTRIAXone 2 GM in Sodium Chloride 0.9% 100 ML IV SCH (21:40)
[2020-09-06] MEDS: Levothyroxine 50 MCG Tab PO SCH (06:39)
--- NOTE | 2020-09-06 07:32 | PCM.PN ---
- General Info Date of Service: 09/06/20 Admission Dx/Problem (Free Text): Admission Diagnosis/Problem Admission Diagnosis/Problem Hypoxia Subjective Update: In to see Maxwell. He is up ambulating around the room and doing well. RT has just taken him off of oxygen. He will finish his last dose of remdesivir tonight. Hopeful for discharge tomorrow. Functional Status: Reports: Pain Controlled, Tolerating Diet, Ambulating, Urinating, Incentive Spirometry, Other (Acapella ). Denies: New Symptoms - Review of Systems General: Reports: No Symptoms. Denies: Fever, Weakness, Fatigue, Malaise, Chills HEENT: Reports: No Symptoms. Denies: Headaches, Sore Throat Pulmonary: Reports: Shortness of Breath (improving ), Cough (improving ) Cardiovascular: Reports: Dyspnea on Exertion (improving ). Denies: Chest Pain, Palpitations Gastrointestinal: Reports: No Symptoms. Denies: Abdominal Pain, Constipation, Diarrhea, Nausea, Vomiting Genitourinary: Reports: No Symptoms. Denies: Pain Musculoskeletal: Reports: No Symptoms Skin: Reports: No Symptoms. Denies: Cyanosis Neurological: Denies: Confusion, Difficulty Walking, Weakness, Gait Disturbance Psychiatric: Reports: No Symptoms - Patient Data Vitals - Most Recent: Last Vital Signs Temp 97.5 F 09/06/20 03:09 Pulse 84 09/06/20 03:09 Resp 18 09/06/20 03:09 BP 145/66 H 09/06/20 03:09 Pulse Ox 89 L 09/06/20 06:14 Weight - Most Recent: 193 lb 8 oz I&O - Last 24 Hours: Intake & Output 09/05/20 09/06/20 09/06/20 22:59 06:59 14:59 Intake Total 1340 1000 Output Total 650 600 Balance 690 400 Lab Results Last 24 Hours: Laboratory Results - last 24 hr 09/05/20 09/06/20 09/06/20 Range/Units 05:35 05:10 05:10 WBC 24.29 H (4.23-9.07) K/mm3 RBC 4.69 (4.63-6.08) M/mm3 Hgb 14.5 (13.7-17.5) gm/dl Hct 45.3 (40.1-51.0) % MCV 96.6 H (79.0-92.2) fl MCH 30.9 (25.7-32.2) pg MCHC 32.0 L (32.2-35.5) g/dl RDW Std Deviation 47.9 H (35.1-43.9) fL Plt Count 114 L D (163-337) K/mm3 MPV 10.3 (9.4-12.3) fl Neut % (Auto) 93.0 H (34.0-67.9) % Lymph % (Auto) 1.1 L (21.8-53.1) % [place] % (Auto) 4.9 L (5.3-12.2) % Eos % (Auto) 0.1 L (0.8-7.0) Baso % (Auto) 0.0 L (0.1-1.2) % Neut # (Auto) 22.58 H (1.78-5.38) K/mm3 Lymph # (Auto) 0.27 L (1.32-3.57) K/mm3 [place] # (Auto) 1.19 H (0.30-0.82) K/mm3 Eos # (Auto) 0.03 L (0.04-0.54) K/mm3 Baso # (Auto) 0.01 (0.01-0.08) K/mm3 Manual Slide Review Abnormal smear Abnormal smear Sodium 134 L (136-145) mEq/L Potassium 3.7 (3.5-5.1) mEq/L Chloride 100 (98-107) mEq/L Carbon Dioxide 25 (21-32) mEq/L Anion Gap 12.7 (5-15) BUN 29 H (7-18) mg/dL Creatinine 0.9 (0.7-1.3) mg/dL Est Cr Clr Drug Dosing 72.05 mL/min Estimated GFR (MDRD) > 60 (>60) mL/min BUN/Creatinine Ratio 32.2 H (14-18) Glucose 116 H (83-115) mg/dL Calcium 8.8 (8.5-10.1) mg/dL Magnesium 2.1 (1.8-2.4) mg/dl Total Bilirubin 0.5 (0.2-1.0) mg/dL AST 18 (15-37) U/L ALT 31 (16-63) U/L Alkaline Phosphatase 63 (46-116) U/L C-Reactive Protein 2.9 H* (<1.0) mg/dL Total Protein 5.5 L (6.4-8.2) g/dl Albumin 2.7 L (3.4-5.0) g/dl Globulin 2.8 gm/dL Albumin/Globulin Ratio 1.0 (1-2) Mert Results Last 24 Hours: Microbiology 09/01/20 21:40 Aerobic Blood Culture - Preliminary Blood - Venous - Lab Draw NO GROWTH AFTER 4 DAYS Anaerobic Blood Culture - Preliminary NO GROWTH AFTER 4 DAYS 09/01/20 21:32 Aerobic Blood Culture - Preliminary Blood - Venous NO GROWTH AFTER 4 DAYS Anaerobic Blood Culture - Preliminary NO GROWTH AFTER 4 DAYS Med Orders - Current: Current Medications Acetaminophen (Tylenol) 650 mg PO Q4H PRN PRN Reason: Fever Greater Than 101 Last Admin: 09/05/20 22:11 Dose: 650 mg Documented by: Hydrocodone Bitart/Acetaminophen ([place] 325-5 Mg) 1 tab PO Q4H PRN PRN Reason: Pain (moderate 4-6) Albuterol (Proventil Hfa) 0 gm INH Q4H PRN PRN Reason: Shortness of Breath Last Admin: 09/05/20 20:13 Dose: 2 inhalation Documented by: Bisacodyl (Dulcolax) 5 mg PO DAILY PRN PRN Reason: Constipation Cholecalciferol (Vitamin D3) 50 mcg PO DAILY [facility] Last Admin: 09/05/20 09:04 Dose: 50 mcg Documented by: Dexamethasone (Dexamethasone) 6 mg PO 2099 [facility] Stop: 09/10/20 21:01 Last Admin: 09/05/20 20:19 Dose: 6 mg Documented by: Docusate Sodium (Colace) 100 mg PO BID PRN PRN Reason: Constipation Last Admin: 09/03/20 18:18 Dose: 100 mg Documented by: Enoxaparin Sodium (Lovenox) 40 mg SUBCUT DAILY [facility] Last Admin: 09/05/20 09:04 Dose: 40 mg Documented by: Hydrochlorothiazide (Hydrochlorothiazide) 12.5 mg PO DAILY [facility] Last Admin: 09/05/20 09:04 Dose: 12.5 mg Documented by: Remdesivir 100 mg/ Sodium (Chloride) 100 mls @ 100 mls/hr IV 2100 [facility] Stop: 09/06/20 21:59 Last Admin: 09/05/20 20:20 Dose: 100 mls/hr Documented by: Levothyroxine Sodium (Synthroid) 100 mcg PO Q48H [facility] Last Admin: 09/05/20 05:23 Dose: 100 mcg Documented by: Levothyroxine Sodium (Levothyroxine) 75 mcg PO Q48H [facility] Last Admin: 09/05/20 05:23 Dose: 75 mcg Documented by: Levothyroxine Sodium (Synthroid) 150 mcg PO Q48H [facility] Last Admin: 09/06/20 06:39 Dose: 150 mcg Documented by: Mometasone Furoate/Formoterol Fumar (Dulera 100-5 Mcg) 2 puff IH BID [facility] Last Admin: 09/05/20 20:13 Dose: 2 inhalation Documented by: Multivitamins (Thera) 1 each PO DAILY [facility] Last Admin: 09/05/20 09:04 Dose: 1 each Documented by: Ondansetron HCl (Zofran) 4 mg IV Q6H PRN PRN Reason: Nausea/Vomiting Sodium Chloride (Saline Flush) 10 ml FLUSH ASDIRECTED PRN PRN Reason: Keep Vein Open Last Admin: 09/01/20 19:59 Dose: 10 ml Documented by: Tamsulosin [facility] ([facility]omax) [facility] Last Admin: 09/05/20 19:09 Dose: 0.4 mg Documented by: Discontinued Medications Azithromycin (Zithromax) 500 mg PO DAILY [facility] Stop: 09/04/20 09:01 Last Admin: 09/04/20 08:57 Dose: 500 mg Documented by: Dexamethasone (Decadron) 6 mg IVPUSH ONETIME ONE Stop: 09/01/20 21:07 Last Admin: 09/01/20 21:36 Dose: 6 mg Documented by: Remdesivir 200 mg/ Sodium (Chloride) 250 mls @ 250 mls/hr IV ONETIME ONE Stop: 09/01/20 21:07 Last Admin: 09/01/20 22:38 Dose: 250 mls/hr Documented by: Ceftriaxone Sodium 2 gm/ (Sodium Chloride) 100 mls @ 200 mls/hr IV ONETIME ONE Stop: 09/01/20 21:36 Last Admin: 09/01/20 21:37 Dose: 200 mls/hr Documented by: Ceftriaxone Sodium 2 gm/ (Sodium Chloride) 100 mls @ 200 mls/hr IV Q24H [facility] Stop: 09/05/20 08:29 Ceftriaxone Sodium 2 gm/ (Sodium Chloride) 100 mls @ 200 mls/hr IV 2100 [facility] Stop: 09/05/20 21:29 Last Admin: 09/05/20 21:40 Dose: 200 mls/hr Documented by: Ketorolac Tromethamine (Toradol) 30 mg IVPUSH ONETIME ONE Stop: 09/01/20 20:36 Last Admin: 09/01/20 20:47 Dose: 30 mg Documented by: Levothyroxine Sodium (Synthroid) 150 mcg PO ONETIME ONE Stop: 09/02/20 11:01 Last Admin: 09/02/20 10:59 Dose: 150 mcg Documented by: - Exam Quality Assessment: DVT Prophylaxis. No: Supplemental Oxygen General: Alert, Oriented, Cooperative, No Acute Distress HEENT: Pupils Equal, Pupils Reactive, Mucous Membr. Moist/[place] Neck: Supple, Trachea Midline Lungs: Normal Respiratory Effort, Decreased Breath Sounds Cardiovascular: Regular Rate, Tachycardia GI/Abdominal Exam: Normal Bowel Sounds, Soft, Non-Tender, No Distention (Male) Exam: Deferred Back Exam: Normal Inspection, Full Range of Motion Extremities: Normal Inspection, Normal Range of Motion, Non-Tender, No Pedal Edema, Normal Capillary Refill Peripheral Pulses: 2+: Radial (L), Radial (R), Dorsalis Pedis (L), Dorsalis Pedis (R) Skin: Warm, Dry, Intact Neurological: No New Focal Deficit Psy/Mental Status: Alert, Normal Affect, Normal Mood Sepsis Event Note - Evaluation Sepsis Screening Result: No Definite Risk - Focused Exam Vital Signs: Vital Signs Temp Pulse Resp BP Pulse Ox Pulse Ox 09/06/20 06:14 89 L 09/06/20 03:09 97.5 F 84 18 145/66 H 89 L 09/06/20 01:18 98.4 F 76 18 118/54 L 93 L 09/05/20 21:25 98.2 F 74 16 120/54 L 92 L 09/05/20 20:14 94 L - Problem List & Annotations (1) Abnormal EKG SNOMED Code(s): 112589006 Code(s): R94.31 - ABNORMAL ELECTROCARDIOGRAM [ECG] [EKG] Status: Acute Priority: High Current Visit: Yes (2) COVID-19 SNOMED Code(s): 116883159 Code(s): U07.1 - COVID-19 Status: Acute Priority: High Current Visit: Yes (3) Right middle lobe pneumonia SNOMED Code(s): 186740512 Code(s): J18.9 - PNEUMONIA, UNSPECIFIED ORGANISM Status: Acute Priority: High Current Visit: Yes Qualifiers: Pneumonia type: due to unspecified organism Qualified Code(s): J18.9 - Pneumonia, unspecified organism (4) COPD (chronic obstructive pulmonary disease) SNOMED Code(s): 90094680 Code(s): J44.9 - CHRONIC OBSTRUCTIVE PULMONARY DISEASE, UNSPECIFIED Status: Chronic Priority: Medium Current Visit: Yes Qualifiers: COPD type: unspecified COPD Qualified Code(s): J44.9 - Chronic obstructive pulmonary disease, unspecified - Problem List Review Problem List Initiated/Reviewed/Updated: Yes - Assessment Assessment:: Assessment * 79 yo male who was diagnosed with COVID-19 on 08/29/2020 (patient originally reported before ) * Was in [place] on 09/01/2020 for bamlanivimab treatment * [place] worse on ride home (SOB and chills) and presented to ED * Labs * WBC 17.02--> 29.9-->19.2-->22.5-->22.59-->24.29 * PLT 393-->370-->423-->378-->114 * D-Dimer 0.68-->0.42-->0.96 * Sodium 136-->135-->134 * Creatinine 1.2, GFR 59-->0.9/>60 * Glucose 156-->105-->116 * CRP 9.3-->11.9-->4.9-->3.0-->2.9 * Given 6mg Decadron, 200mg remdesivir, 2gm Rocephin and 30mg Toradol in ED * Continuing Decadron, remdesivir, Rocephin, and azithromycin * Requiring 1L O2 via NC * Sepsis screen: * Elevated WBC with suspected PNA; Tachycardia, Fever, Tachypneic, with no signs of end organ dysfunction * Does not meet criteria * 12-lead EKG shows ectopic atrial tachycardia at 115 with RBBB and LAFB, ? lateral acute infarct in V5,V6, I, aVL, prolonged QTc at 616 * ED provider contacted Dr. Agustin with [facility] who was not concerned as patient had no chest pain * Repeat EKG grossly unchanged * Admitted to [facility] on telemetry for COVID-19 treatment and PNA treatment - Plan Plan:: COVID-19 Right middle lobe pneumonia COPD (chronic obstructive pulmonary disease) Leukocytosis * Complted Rocephin * Completed azithromycin * Continue Remdesivir day 5/5 - last day * Continue dexamethasone day / * O2 as needed * RT consult * PT/OT for strengthening * Ambulate around room * Prone when able * Continue home CPAP * Acapella/IS * Spiritual care consultation * Assistant Manager Retail consult * Monitor labs * Telemetry/continuous pulse ox * Review clinic records * Airborne/contact precautions * Tylenol for fever/pain Abnormal EKG, stable * Repeat EKG shows no change * Telemetry DVT prophylaxis: Lovenox PCP: Dr. Jain Code status: DNR/DNI Disposition: Admit to hospital floor on telemetry for COVID-19 and CAP treatment. Prognosis: Good Length of stay greater than 96 hours secondary to COVID-19 treatment and continued high level of oxygen support. Likely discharge tomorrow 09/07/20 pending continued improvement and completion of COVID-19 treatment
[2020-09-06] MEDS: Formoterol/Mometasone 100-5 MCG 8.8 GM Inhaler IH SCH ×2 (08:13→20:50)
[2020-09-06] MEDS: Albuterol 6.7 GM Inhaler INH PRN ×2 (08:14→20:51)
[2020-09-06] MEDS: Enoxaparin 40 MG/0.4 ML Syringe SUBCUT SCH (09:33)
[2020-09-06] MEDS: Multivitamins,Therapeutic Tab PO SCH (09:34)
[2020-09-06] MEDS: Hydrochlorothiazide 12.5 MG Cap PO SCH (09:34)
[2020-09-06] MEDS: Cholecalciferol (Vitamin D3) 25 MCG Tab PO SCH (09:34)
[2020-09-06] MEDS: Tamsulosin 0.4 MG Cap.ER PO SCH (18:15)
[2020-09-06] MEDS: Dexamethasone 4 MG Tab PO SCH (21:51)
[2020-09-06] MEDS: Acetaminophen 325 MG Tab PO PRN (21:51)
[2020-09-06] MEDS: REMDESIVIR 100 MG in Sodium Chloride 0.9% 100 ML IV SCH (21:54)
[2020-09-07] MEDS: Levothyroxine 100 MCG Tab PO SCH (05:59)
[2020-09-07] MEDS: Levothyroxine 75 MCG Tab PO SCH (05:59)
[2020-09-07] MEDS: Formoterol/Mometasone 100-5 MCG 8.8 GM Inhaler IH SCH (08:03)
[2020-09-07] MEDS: Albuterol 6.7 GM Inhaler INH PRN (08:04)
[2020-09-07 09:19] VITALS: BP 111/50; PULSE 80
[2020-09-07] MEDS: Multivitamins,Therapeutic Tab PO SCH (09:32)
[2020-09-07] MEDS: Hydrochlorothiazide 12.5 MG Cap PO SCH (09:32)
[2020-09-07] MEDS: Enoxaparin 40 MG/0.4 ML Syringe SUBCUT SCH (09:32)
[2020-09-07] MEDS: Cholecalciferol (Vitamin D3) 25 MCG Tab PO SCH (09:32)
[2020-09-07] MEDS ORDERED: Furosemide 20 MG/2 ML VIAL IVPUSH ONE (10:00)
--- NOTE | 2020-09-07 11:45 | PCM.DCSUM1 ---
Discharge Summary - Hospital Course HPI Initial Comments: This is a 79 yo male who presented to ED in the evening of 09/01/2020 with weakness and shortness of breath. He is Covid positive. He states he was diagnosed with Covid just before . He had gone to [place] prior in the day to get the bamlanivimab antibody treatment around 3 PM. He states this was recommended by his primary care provider, Dr. Rivera. On the ride home he became more short of breath and noted chills. He then presented to the ED here. In the ED triage he is noted to have a fever of 102.2, be tachycardic at 121, have a respiratory rate of 32, blood pressure 124/68, and oxygen saturations are noted to be 89% on room air. Twelve-lead EKG is obtained showing ectopic atrial tachycardia at 115 bpm with a right bundle branch block and LAFB. QTC is prolonged. It was noted that there were concerns for possible lateral acute infarct giving changes to V5, V6, I and aVL. ED provider contacted Dr. Agustin, who is a primer charging tool setter at [employer] in [place]. He said because the patient is not having chest pain which not be concerned about a STEMI. EKG was obtained about an hour later with no change. Labs were obtained elevated WBC of 17.02. Hemoglobin of 15.4. Platelets of 393. PT was 2.2. INR 1.14. APTT was 33.3. D-dimer was 0.68. Sodium was low at 133. Potassium on the low end of normal at 3.6. Anion gap was 14.6. BUN was 22. Creatinine was 1.2. GFR is 59. Glucose was elevated at 147. Calcium was 8.9. Magnesium low end of normal at 1.9. Bilirubin was slightly elevated 1.1. AST was 27, ALT 32, alkaline phosphatase 85. LDH was 263. Troponin 0 0.044. Protein was 6.9. Albumin 3.4. Lactic acid was 2.0. Ferritin was 97. ABG was obtained in the right radial showing a pH of 7.5. PCO2 of 29.7. PO2 of 65. HCO3 was 22.8. O2 saturation was 91.7. Base excess was 1. This was on room air. CRP was 9.3. He is given 2 g of Rocephin along with 6 mg IV push of Decadron and 200 mg first dose of remdesivir. He is also given 30 mg of Toradol. Chest x-rays obtained showing an elevated left hemidiaphragm with a air-filled stomach beneath it. Atelectasis within the left base. There is also an area of focal density within the right midlung with a small area of pneumonia being possible. Cultures were obtained and are pending. Carries a history of heart murmur, COPD, hernia, BPH, hypothyroidism, non- Hodgkin's lymphoma. He is a former tobacco user who quit in 1998. Primary care provider is Dr. Rivera. He subsequently mid to the medical floor for management of his worsening COVID-19 virus and pneumonia. Diagnosis: Stroke: No - Discharge Data Discharge Date: 09/07/20 (Admit date: 09/01/2020) Discharge Disposition: Home, Self-Care 01 Condition: Good - Referral to Home Health Primary Care Physician: Yamil Watson MD - Discharge Diagnosis/Problem(s) (1) Abnormal EKG SNOMED Code(s): 852707732 ICD Code: R94.31 - ABNORMAL ELECTROCARDIOGRAM [ECG] [EKG] Status: Acute Priority: High Current Visit: Yes (2) COVID-19 SNOMED Code(s): 514115694 ICD Code: U07.1 - COVID-19 Status: Acute Priority: High Current Visit: Yes (3) Right middle lobe pneumonia SNOMED Code(s): 507011498 ICD Code: J18.9 - PNEUMONIA, UNSPECIFIED ORGANISM Status: Resolved Priority: High Current Visit: Yes Qualifiers: Pneumonia type: due to unspecified organism Qualified Code(s): J18.9 - Pneumonia, unspecified organism (4) COPD (chronic obstructive pulmonary disease) SNOMED Code(s): 20900648 ICD Code: J44.9 - CHRONIC OBSTRUCTIVE PULMONARY DISEASE, UNSPECIFIED Status: Chronic Priority: Medium Current Visit: Yes Qualifiers: COPD type: unspecified COPD Qualified Code(s): J44.9 - Chronic obstructive pulmonary disease, unspecified - Patient Summary/Data Consults: Consultations 09/02/20 07:35 Consult to Case Management/Store Planner [CONS] Routine Consult to Chef Instructor [CONS] Routine OT Evaluation and Treatment [CONS] Routine PT Evaluation and Treatment [CONS] Routine Respiratory Care Assess and Treatment [CONS] Routine Labs Pending at D/C: None Recommended Follow-up Testing/Procedures: Follow-up with PCP within 5-7 days of discharge, sooner if needed -Recommend repeat CBC, CMP and magnesium at that visit Hospital Course: Cristo is admitted to the hospital due to hypoxia due to COVID-19, weakness, and a right middle lobe pneumonia. Of note he had received bamlanivimab treatment in [place] on 09/01/2020. Treated with a 6-day course of dexamethasone and a 5-day course of remdesivir for his COVID-19. He was also given a 5-day course of 2 g Rocephin and a 3-day course of 500 mg azithromycin for his right middle lobe pneumonia. Oxygen requirements were noted to increase and then decreased while here, requiring 6 L at maximum. Prior to discharge he was successfully weaned off of oxygen and doing well. He did continue to prone while in bed, ambulate around the room frequently, and utilize his Acapella and incentive spirometer often. In the ED he was noted to have abnormal EKG. All EKGs were obtained showing no change and cardiology was contacted in [place] multiple times. He was placed on telemetry on the floor and there was some concern as the computer was reading V. tach at times. Twelve-lead EKG was again obtained showing no changes from ED. WBC did continue to increase, likely from steroids. It was only minimally elevated and CRP did trend down. Renal function improved. Evaluated by PT and OT who discharged him and reported that he can return home unassisted. Dietitian did see him. Patient does report that his has also been diagnosed positive with Covid but has since recovered. Infection prevention did note the patient needs to remain on quarantine until 09/10/2020, although it was noted that the patient does have a cloth shrinking machine operator helper through the state and should discuss this with them as well. Given that the patient was taking p.o. steroids prior to being admitted and states he does have a history of multiple lung issues requiring both antibiotic and steroid treatment it is felt that the patient would benefit from a steroid taper on discharge. This will be a 6-day taper of 6, 5, 4, 3, 2, and 1 mg respectively. It was stressed to the patient to continue utilizing his Acapella and incentive spirometer after discharge. He was advised to continue to stay active, but not overdo it. He was advised to continue proning whenever possible. He should follow-up with his primary care provider within 5 to 7 days of discharge, sooner if needed. He was advised to return the emergency room should severe shortness of breath or chest pain occur. Recommend repeat CBC, CMP, and magnesium at follow-up visit. He was discharged home today. - Patient Instructions Diet: Usual Diet as Tolerated Activity: As Tolerated Driving: Do Not Drive (today) Showering/Bathing: May Shower Notify Provider of: Fever, Increased Pain, Nausea and/or Vomiting Other/Special Instructions: Follow-up with primary care provider within 5-7 days of discharge. You completed your COVID-19 much of your treatment while here. You will be prescribed a steroid taper on discharge. Take this as directed. It will be a 6, 5, 4, 3, 2, 1 pill taper. Resume home medications as directed. Continue to do what you were doing here. Walk around frequently. Utilize your incentive spirometer (Clear/blue device you inhale through) and your acapella (green tube you blow through). Try to prone (sleep/lay on your stomach) as much as possible. Take it easy and listen to your body. Stay active as above but do not overdo it. You still need rest. You should remain quarantined until 09/10/2020 if you feel better. You should continue quarantine if you continue to have significant cough or fever. 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 You may contact this individual should you have any more questions. You can expect symptoms to continue for quite so metime. Should you notice any worsening of symptoms or severe shortness of breath, chest pain, etc. Return to the Emergency Department or contact your primary care provider. - Discharge Plan *PRESCRIPTION DRUG MONITORING PROGRAM REVIEWED*: No *COPY OF PRESCRIPTION DRUG MONITORING REPORT IN PATIENT OTIS: No Prescriptions/Med Rec: predniSONE [Prednisone] 10 mg PO DAILY #21 tab.ds.pk Home Medications: Home Meds Levothyroxine 150 mcg PO ASDIRECTED 01/17/17 [History] Levothyroxine 175 mcg PO ASDIRECTED 01/17/17 [History] Albuterol [Ventolin HFA] 2 puff INH Q4H PRN 09/02/20 [History] Albuterol/Ipratropium [DuoNeb 3.0-0.5 MG/3 ML] 1 unit NEB Q6H 09/02/20 [History] Budesonide/Formoterol [Symbicort 80-4.5 MCG] 2 puff INH BID 09/02/20 [History] Cholecalciferol (Vitamin D3) [Vitamin D3] 2,000 units PO DAILY 09/02/20 [History] Dupilumab [Dupixent Pen] 300 mg IM Q14D 09/02/20 [History] EPINEPHrine [Epinephrine] 1 syringe IM ASDIRECTED 09/02/20 [History] Lutein/Minerals/Vit A,C & E [Ocuvite] 1 tab PO DAILY 09/02/20 [History] Mineral Oil 1 applic TOP ASDIRECTED 09/02/20 [History] Multivitamin with Iron [Multivitamins with Iron] 1 tab PO DAILY 09/02/20 [History] Tamsulosin [Flomax] 0.4 mg PO PCDINNER 09/02/20 [History] Triamcinolone Acetonide [Triamcinolone Acetonide 0.1% Oint] 1 applic TOP DAILY PRN 09/02/20 [History] hydroCHLOROthiazide [Hydrochlorothiazide] 12.5 mg PO DAILY 09/02/20 [History] predniSONE [Prednisone] 10 mg PO DAILY #21 tab.ds.pk 09/07/20 [Rx] Oxygen Therapy Mode: Room Air Patient Handouts: COVID-19, How to Use an Incentive Spirometer, Sepsis, Diagnosis, Adult, COVID-19: How to Protect Yourself and Others - CDC, Form - COPD Action Plan Referrals: Yamil Watson MD [Primary Care Provider] - 09/12/20 1:15 pm (Hospital follow-up appointment.) - Discharge Summary/Plan Comment DC Time >30 min.: Yes (45 mins ) - General Info Date of Service: 09/07/20 Admission Dx/Problem (Free Text: Admission Diagnosis/Problem Admission Diagnosis/Problem Hypoxia Functional Status: Reports: Pain Controlled, Tolerating Diet, Ambulating, Urinating, Incentive Spirometry, Other (Acapella ). Denies: New Symptoms - Review of Systems General: Reports: No Symptoms. Denies: Fever, Weakness, Fatigue, Malaise, Chills HEENT: Reports: No Symptoms. Denies: Headaches, Sore Throat Pulmonary: Reports: Shortness of Breath (Improved ), Cough (Improved ). Denies: Sputum, Wheezing Cardiovascular: Reports: Dyspnea on Exertion (Improving ), Edema. Denies: Chest Pain, Palpitations Gastrointestinal: Reports: No Symptoms. Denies: Abdominal Pain, Constipation, Diarrhea, Nausea, Vomiting Genitourinary: Reports: No Symptoms. Denies: Pain Musculoskeletal: Reports: No Symptoms Skin: Reports: No Symptoms. Denies: Cyanosis Neurological: Reports: No Symptoms. Denies: Confusion, Numbness, Tingling, Difficulty Walking, Weakness, Gait Disturbance Psychiatric: Reports: No Symptoms - Patient Data Vitals - Most Recent: Last Vital Signs Temp 98.2 F 09/07/20 08:30 Pulse 80 09/07/20 08:30 Resp 19 09/07/20 08:30 BP 111/50 L 09/07/20 08:30 Pulse Ox 91 L 09/07/20 08:30 Weight - Most Recent: 196 lb 2 oz I&O - Last 24 hours: Intake & Output 09/06/20 09/07/20 09/07/20 22:59 06:59 14:59 Intake Total 1880 700 640 Output Total 775 775 Balance 1105 -75 640 MARGARET Results - Last 24 hrs: Microbiology 09/01/20 21:40 Aerobic Blood Culture - Preliminary Blood - Venous - Lab Draw NO GROWTH AFTER 5 DAYS Anaerobic Blood Culture - Preliminary NO GROWTH AFTER 5 DAYS 09/01/20 21:32 Aerobic Blood Culture - Preliminary Blood - Venous NO GROWTH AFTER 5 DAYS Anaerobic Blood Culture - Preliminary NO GROWTH AFTER 5 DAYS Med Orders - Current: Current Medications Acetaminophen (Tylenol) 650 mg PO Q4H PRN PRN Reason: Fever Greater Than 101 Last Admin: 09/06/20 21:51 Dose: 650 mg Documented by: Hydrocodone Bitart/Acetaminophen ([place] 325-5 Mg) 1 tab PO Q4H PRN PRN Reason: Pain (moderate 4-6) Albuterol (Proventil Hfa) 0 gm INH Q4H PRN PRN Reason: Shortness of Breath Last Admin: 09/07/20 08:04 Dose: 2 inhalation Documented by: Bisacodyl (Dulcolax) 5 mg PO DAILY PRN PRN Reason: Constipation Cholecalciferol (Vitamin D3) 50 mcg PO DAILY [facility] Last Admin: 09/07/20 09:32 Dose: 50 mcg Documented by: Dexamethasone (Dexamethasone) 6 mg PO 2100 [facility] Stop: 09/10/20 21:01 Last Admin: 09/06/20 21:51 Dose: 6 mg Documented by: Docusate Sodium (Colace) 100 mg PO BID PRN PRN Reason: Constipation Last Admin: 09/03/20 18:18 Dose: 100 mg Documented by: Enoxaparin Sodium (Lovenox) 40 mg SUBCUT DAILY [facility] Last Admin: 09/07/20 09:32 Dose: 40 mg Documented by: Hydrochlorothiazide (Hydrochlorothiazide) 12.5 mg PO DAILY [facility] Last Admin: 09/07/20 09:32 Dose: 12.5 mg Documented by: Levothyroxine Sodium (Synthroid) 100 mcg PO Q48H [facility] Last Admin: 09/07/20 05:59 Dose: 100 mcg Documented by: Levothyroxine Sodium (Levothyroxine) 75 mcg PO Q48H [facility] Last Admin: 09/07/20 05:59 Dose: 75 mcg Documented by: Levothyroxine Sodium (Synthroid) 150 mcg PO Q48H [facility] Last Admin: 09/06/20 06:39 Dose: 150 mcg Documented by: Mometasone Furoate/Formoterol Fumar (Dulera 100-5 Mcg) 2 puff IH BID [facility] Last Admin: 09/07/20 08:03 Dose: 2 inhalation Documented by: Multivitamins (Thera) 1 each PO DAILY [facility] Last Admin: 09/07/20 09:32 Dose: 1 each Documented by: Ondansetron HCl (Zofran) 4 mg IV Q6H PRN PRN Reason: Nausea/Vomiting Sodium Chloride (Saline Flush) 10 ml FLUSH ASDIRECTED PRN PRN Reason: Keep Vein Open Last Admin: 09/01/20 19:59 Dose: 10 ml Documented by: Tamsulosin HCl (Flomax) 0.4 mg PO PCDINNER [facility] Last Admin: 09/06/20 18:15 Dose: 0.4 mg Documented by: Discontinued Medications Azithromycin (Zithromax) 500 mg PO DAILY [facility] Stop: 09/04/20 09:01 Last Admin: 09/04/20 08:57 Dose: 500 mg Documented by: Dexamethasone (Decadron) 6 mg IVPUSH ONETIME ONE Stop: 09/01/20 21:07 Last Admin: 09/01/20 21:36 Dose: 6 mg Documented by: Furosemide (Lasix) 20 mg IVPUSH NOW ONE Stop: 09/07/20 10:01 Last Admin: 09/07/20 10:25 Dose: 20 mg Documented by: Remdesivir 200 mg/ Sodium (Chloride) 250 mls @ 250 mls/hr IV ONETIME ONE Stop: 09/01/20 21:07 Last Admin: 09/01/20 22:38 Dose: 250 mls/hr Documented by: Ceftriaxone Sodium 2 gm/ (Sodium Chloride) 100 mls @ 200 mls/hr IV ONETIME ONE Stop: 09/01/20 21:36 Last Admin: 09/01/20 21:37 Dose: 200 mls/hr Documented by: Remdesivir 100 mg/ Sodium (Chloride) 100 mls @ 100 mls/hr IV 2100 [facility] Stop: 09/06/20 21:59 Last Admin: 09/06/20 21:54 Dose: 100 mls/hr Documented by: Ceftriaxone Sodium 2 gm/ (Sodium Chloride) 100 mls @ 200 mls/hr IV Q24H [facility] Stop: 09/05/20 08:29 Ceftriaxone Sodium 2 gm/ (Sodium Chloride) 100 mls @ 200 mls/hr IV 2100 [facility] Stop: 09/05/20 21:29 Last Admin: 09/05/20 21:40 Dose: 200 mls/hr Documented by: Ketorolac Tromethamine (Toradol) 30 mg IVPUSH ONETIME ONE Stop: 09/01/20 20:36 Last Admin: 09/01/20 20:47 Dose: 30 mg Documented by: Levothyroxine Sodium (Synthroid) 150 mcg PO ONETIME ONE Stop: 09/02/20 11:01 Last Admin: 09/02/20 10:59 Dose: 150 mcg Documented by: - Exam Quality Assessment: Reports: DVT Prophylaxis. Denies: Supplemental Oxygen General: Reports: Alert, Oriented, Cooperative, No Acute Distress HEENT: Reports: Pupils Equal, Pupils Reactive, Mucous Membr. Moist/[place] Neck: Reports: Supple Lungs: Reports: Normal Respiratory Effort, Decreased Breath Sounds. Denies: Rales, Rhonchi, Wheezing Cardiovascular: Reports: Regular Rate, Regular Rhythm GI/Abdominal Exam: Normal Bowel Sounds, Soft, Non-Tender, No Distention (Male) Exam: Deferred Rectal (Males) Exam: Deferred Back Exam: Reports: Normal Inspection, Full Range of Motion Extremities: Normal Inspection, Normal Range of Motion, Non-Tender, Normal Capillary Refill, Pedal Edema Skin: Reports: Warm, Dry, Intact Neurological: Reports: No New Focal Deficit Psy/Mental Status: Reports: Alert, Normal Affect, Normal Mood
== END 2020-09-07 14:00 | disposition home or self-care (01) | DRG 177 ==
LOC: JD.ED 19:30 → JD.MS 22:06
PROVIDERS: ADMIT Family Medicine; ATTEND Family Medicine
PROC: 8E0ZXY6 Isolation (ICD-10-PCS; principal; 2020-09-01)
PROC: XW033E5 Introduction of Remdesivir Anti-infective into Peripheral Vein, Percutaneous Approach, New Technology Group 5 (ICD-10-PCS; 2020-09-01)
PROC: XW033F5 Introduction of Other New Technology Therapeutic Substance into Peripheral Vein, Percutaneous Approach, New Technology Group 5 (ICD-10-PCS; 2020-09-01)
DX: U07.1 COVID-19 (principal); J12.89 Other viral pneumonia; H91.90 Unspecified hearing loss, unspecified ear; J18.9 Pneumonia, unspecified organism; J44.0 Chronic obstructive pulmonary disease with (acute) lower respiratory infection; C85.90 Non-Hodgkin lymphoma, unspecified, unspecified site; Z87.891 Personal history of nicotine dependence; Z88.0 Allergy status to penicillin; Z79.890 Hormone replacement therapy; N40.0 Benign prostatic hyperplasia without lower urinary tract symptoms; E03.9 Hypothyroidism, unspecified; F17.210 Nicotine dependence, cigarettes, uncomplicated; Z66 Do not resuscitate
CPT/HCPCS: 36415; 36600; 71045; 80053; 82728; 82803; 83605; 83615; 83735; 83880; 84484; 85007; 85027; 85379; 85610; 85730; 86140; 87040 ×2; 93005 ×2; 96365; 96375; 99285; J0696; J1100; J1885; J7050; 82553; 82962; 85025; 93010; 94640; 94667; 94668; 94760; 94761; 94762; 97110-GP; 97162-GP; 97165-GO; A9270-GY; J1650; J1940; J8540

== ENCOUNTER 2021-08-19 12:05 | Emergency (ER) | payer MEDICARE, OTHER ==
--- NOTE | 2021-08-19 12:31 | EDM.PDOC ---
ED HPI GENERAL MEDICAL PROBLEM - General Chief Complaint: Head Injury Stated Complaint: HEAD INJURY/FALL/FEET SWELLING Time Seen by Provider: 08/19/21 12:30 Source of Information: Reports: Patient History Limitations: Reports: No Limitations - History of Present Illness INITIAL COMMENTS - FREE TEXT/NARRATIVE: 80-year-old male attends the ED in the accompaniment of his daughter. He states that yesterday while carrying a box he missed a step and this could propelled him forwards onto the pavement. He suffered a closed head injury injuring his right eyebrow with the laceration is well as development of ecchymoses surrounding the entire right eye. He has no facial pain and no visual acuity changes no headache nausea or vomiting. Of note this injury occurred greater than 24 hours ago. Second injury was to the dorsal aspect of his right hand and wrist area which is markedly ecchymotic. He has a fairly full-thickness skin tear over the third fourth fingers at the metacarpal phalangeal joints that will likely require suture repair. He is unsure when he had his last tetanus toxoid. Patient also presents to the ED due to severe swelling of his lower extremities. He denies feeling orthopneic or PND. No recent changes to his medications although he was on a course of prednisone for exacerbation of COPD/asthma and finished this last Saturday or Saturday. This would have contributed to increased dependent edema. He is unsure how his renal function is. Onset: Sudden Onset Date: 08/19/21 Onset Time: 13:00 Duration: Day(s): (24 hours) Location: Reports: Face (Right periorbital area right supraorbital ridge), Upper Extremity, Right (Right dorsal hand skin tear and ecchymosis of the entire wrist) Quality: Reports: Ache, Burning (Mild ache mild burning laceration dorsal right hand) Severity: Mild Improves with: Reports: Rest Worsens with: Reports: Movement Context: Reports: Trauma (Tripped up and fell yesterday while carrying a box and he could not see the ground very well.). Denies: Activity, Exercise (Worse with a little movement), Lifting, Sick Contact Associated Symptoms: Reports: Cough, Malaise, Shortness of Breath, Other (Increased swelling of both lower extremities over the last few weeks. Worse since finishing a course of prednisone recently). Denies: Confusion, Chest Pain, cough w sputum (Mild cough), Diaphoresis, Fever/Chills, Headaches, Loss of Appetite, Nausea/Vomiting, Rash, Seizure, Syncope, Weakness Treatments INF[employer] ROOM TE[employer]ER: Reports: Other (see below) (None.) - Related Data Allergies Allergy/AdvReac Type Severity Reaction Status Date / Time Penicillins Allergy Cannot Verified 09/01/20 19:47 Remember Home Meds: Home Meds Levothyroxine 150 mcg PO ASDIRECTED 01/17/17 [History] Levothyroxine 175 mcg PO ASDIRECTED 01/17/17 [History] Albuterol [Ventolin HFA] 2 puff INH Q4H PRN 09/02/20 [History] Albuterol/Ipratropium [DuoNeb 3.0-0.5 MG/3 ML] 1 unit NEB Q6H 09/02/20 [History] Budesonide/Formoterol [Symbicort 80-4.5 MCG] 2 puff INH BID 09/02/20 [History] Cholecalciferol (Vitamin D3) [Vitamin D3] 2,000 units PO DAILY 09/02/20 [History] Dupilumab [Dupixent Pen] 300 mg IM Q14D 09/02/20 [History] EPINEPHrine [Epinephrine] 1 syringe IM ASDIRECTED 09/02/20 [History] Lutein/Minerals/Vit A,C & E [Ocuvite] 1 tab PO DAILY 09/02/20 [History] Mineral Oil 1 applic TOP ASDIRECTED 09/02/20 [History] Multivitamin with Iron [Multivitamins with Iron] 1 tab PO DAILY 09/02/20 [History] Tamsulosin [Flomax] 0.4 mg PO PCDINNER 09/02/20 [History] Triamcinolone Acetonide [Triamcinolone Acetonide 0.1% Oint] 1 applic TOP DAILY PRN 09/02/20 [History] predniSONE [Prednisone] 10 mg PO DAILY #21 tab.ds.pk 09/07/20 [Rx] Doxycycline [Vibra-Tabs] 100 mg PO BID #16 tab 08/19/21 [Rx] Furosemide [Lasix] 40 mg PO DAILY #30 tab 08/19/21 [Rx] Spironolactone [Aldactone] 25 mg PO DAILY #30 tab 08/19/21 [Rx] Past Medical History HEENT History: Reports: Hard of Hearing, Other (See Below) Other HEENT History: 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 Cardiovascular History: Reports: Heart Failure, Heart Murmur Respiratory History: Reports: COPD, Sleep Apnea Gastrointestinal History: Reports: Other (See Below) Other Gastrointestinal History: hernia Genitourinary History: Reports: BPH Endocrine/Metabolic History: Reports: Hypothyroidism Oncologic (Cancer) History: Reports: Non-Hodgkin's Lymphoma - Infectious Disease History Infectious Disease History: Reports: Novel Coronavirus - Past Surgical History HEENT Surgical History: Reports: Cataract Surgery, Naso-Sinus Surgery, Other (See Below) Social & Family History - Family History Family Medical History: No Pertinent Family History - Caffeine Use Caffeine Use: Reports: None - Living Situation & Occupation Living situation: Reports: , with Spouse Occupation: Retired ED ROS GENERAL - Review of Systems Review Of Systems: See Below Constitutional: Reports: Weakness, Fatigue. Denies: Fever, Chills, Malaise HEENT: Reports: Glasses, Hearing Loss Respiratory: Reports: Shortness of Breath (Wears bilateral hearing aids), Cough (Occasional nonproductive cough). Denies: Wheezing, Pleuritic Chest Pain, Sputum Cardiovascular: Reports: Blood Pressure Problem, Edema (Sleep sitting up for the last several weeks increasing edema both lower extremities particularly since finishing a recent course of prednisone), Orthopnea. Denies: Claudication, Dyspnea on Exertion, PND, Syncope, Other Endocrine: Reports: Fatigue GI/Abdominal: Reports: Constipation (Occasional problems with constipation) : Reports: Frequency, Other (Known BPH. Nocturia x3) Musculoskeletal: Reports: Neck Pain, Shoulder Pain, Back Pain, Other (Knee and hip pain intermittently) Skin: Reports: Other (Bruises easily) Neurological: Reports: No Symptoms Psychiatric: Reports: No Symptoms Hematologic/Lymphatic: Reports: No Symptoms Immunologic: Reports: No Symptoms ED EXAM, HEAD INJURY - Physical Exam Exam: See Below Exam Limited By: No Limitations General Appearance: Alert, WD/WN, No Apparent Distress Head: Facial Swelling (Mild facial swelling inferior to the right eye with no palpable deformity of the zygomatic process.), Other (Significant periorbital ecchymoses of both upper and lower eyelids with superficial laceration right eyebrow from fall yesterday. Nothing to suture it is more of an abrasion.). No: Atraumatic, Normocephalic, Scalp Hematoma Nexus Criteria: No: Posterior, Midline Cervical Tenderness, Evidence of Intoxication, Altered Level of Consciousness, Focal Neurological Deficit Eyes: Right Eye: Periorbital Changes (Marked periorbital ecchymoses upper and lower eyelids and eyebrow from fall yesterday with blunt force trauma), Bilateral Eye: Normal Inspection, PERRL Ears: Other (Wearing hearing aids both ears.) Throat/Mouth: Normal Inspection, Normal Lips, Normal Voice, Other (No dental or injury to the tongue.) Neck: Non-Tender, Full Range of Motion, Normal Alignment. No: Normal Inspection Respiratory: No Respiratory Distress, Chest Non-Tender, Decreased Breath Sounds (Breath sounds are minimally decreased to 20% of lower posterior lung deng), Crackles (Few crackles in both lung bases slightly worse on the right as compared to the left.) Cardiovascular: Regular Rate, Rhythm, No Gallop, No JVD, Systolic Murmur (Grade 1 out of 6 pansystolic ejection murmur at left lower sternal border). No: No Edema, JVD GI/Abdominal Exam: Normal Bowel Sounds, Soft, Non-Tender, No Organomegaly, No Abnormal Bruit Back Exam: Decreased Range of Motion (Loss of 20 degrees forward flexion 10 degrees extension), Other (Mild kyphosis thoracic spine). No: CVA Tenderness (L), CVA Tenderness (R) Extremities: Pedal Edema (4+ pitting edema above the knees bilaterally. This is an inhibiting his ability to walk as he is a shuffling type gait.), Other (3 cm laceration dorsal aspect of right hand at the base of third and fourth fingers over the MCP joints. Clinically make a full fist with no evidence of bony injury. Mild minimal contusion to both knees. Over the patella) Neurologic: No Motor/Sensory Deficits, Alert, Normal Mood/Affect, Oriented x 3 Skin: Normal Color, Warm/Dry - Argos Coma Score Best Eye Response (Argos): (4) Open Spontaneously Best Verbal Response (Argos): (5) Oriented Best Motor Response (Argos): (6) Obeys Commands Argos Total: 15 ED LACERATION/WOUND & RAJWINDER PROC - Laceration/Wound Repair Right Dorsal Hand Lac/wound length in cm: 3.0 Appearance: Subcutaneous Distal NVT: Neuro & Vascular Intact Anesthetic Type: Local Local Anesthesia - Lidocaine (Xylocaine): 1% Plain Local Anesthetic Volume: 3cc Skin Prep: Chlorhexidine (Hibiciens), Saline, Sterile Drape Exploration/Debridement/Repair: No Foreign Material Found Closed with: Sutures Suture Size: 4-0 # of Sutures: 10 Suture Type: Nylon, Interrupted, Simple Course - Vital Signs Last Recorded V/S: Last Vital Signs Temp 36.3 C 08/19/21 12:29 Pulse 65 08/19/21 12:29 Resp 16 08/19/21 12:29 BP 127/64 08/19/21 12:29 Pulse Ox 100 08/19/21 12:29 - Orders/Labs/Meds Orders: Active Orders 24 hr Category Date Time Status Vaccine to be Administered/Admin Charge [RC] ASDIRECTED Care 08/19/21 12:43 Active Labs: Laboratory Tests 08/19/21 08/19/21 08/19/21 Range/Units 13:05 13:05 13:05 WBC 10.65 H (4.23-9.07) K/mm3 RBC 3.60 L (4.63-6.08) M/mm3 Hgb 12.7 L D (13.7-17.5) gm/dl Hct 41.1 (40.1-51.0) % MCV 114.2 H D (79.0-92.2) fl MCH 35.3 H (25.7-32.2) pg MCHC 30.9 L (32.2-35.5) g/dl RDW Std Deviation 99.5 H (35.1-43.9) fL Plt Count 115 L (163-337) K/mm3 MPV 10.5 (9.4-12.3) fl Neut % (Auto) 75.8 H (34.0-67.9) % Lymph % (Auto) 4.1 L (21.8-53.1) % Lynn % (Auto) 15.8 H (5.3-12.2) % Eos % (Auto) 3.0 (0.8-7.0) Baso % (Auto) 0.1 (0.1-1.2) % Neut # (Auto) 8.07 H (1.78-5.38) K/mm3 Lymph # (Auto) 0.44 L (1.32-3.57) K/mm3 Lynn # (Auto) 1.68 H (0.30-0.82) K/mm3 Eos # (Auto) 0.32 (0.04-0.54) K/mm3 Baso # (Auto) 0.01 (0.01-0.08) K/mm3 Manual Slide Review Abnormal smear Sodium 136 (136-145) mEq/L Potassium 4.3 (3.5-5.1) mEq/L Chloride 102 (98-107) mEq/L Carbon Dioxide 30 (21-32) mEq/L Anion Gap 8.3 (5-15) BUN 17 (7-18) mg/dL Creatinine 0.9 (0.7-1.3) mg/dL Est Cr Clr Drug Dosing 70.88 mL/min Estimated GFR (MDRD) > 60 (>60) mL/min BUN/Creatinine Ratio 18.9 H (14-18) Glucose 91 (70-99) mg/dL Calcium 8.3 L (8.5-10.1) mg/dL Magnesium 2.1 (1.8-2.4) mg/dL Total Bilirubin 1.0 (0.2-1.0) mg/dL AST 22 (15-37) U/L ALT 16 (16-63) U/L Alkaline Phosphatase 105 (46-116) U/L Troponin I < 0.017 (0.00-0.056) ng/mL NT-Pro-B Natriuret Pep 1133 H (0-450) pg/mL Total Protein 6.0 L (6.4-8.2) g/dl Albumin 3.0 L (3.4-5.0) g/dl Globulin 3.0 gm/dL Albumin/Globulin Ratio 1.0 (1-2) Meds: Medications Discontinued Medications Generic Name Dose Route Start Last Admin Trade Name Freq PRN Reason Stop Dose Admin Diphtheria/Tetanus/Acell Pertussis 0.5 ml 08/19/21 12:43 08/19/21 13:52 Diphtheria,Pertussis(Acell),Tetanus Vaccine 0.5 Ml Syringe IM 08/19/21 12:44 0.5 ml .ONCE ONE Administration Lidocaine HCl 10 ml 08/19/21 12:42 08/19/21 13:10 Lidocaine 1% 10 Ml Mdv INJECT 08/19/21 12:43 10 ml ONETIME ONE Administration - Radiology Interpretation Free Text/Narrative:: 80-year-old male presents to the ED for evaluation of injury sustained from a fall yesterday on the pavement. He was carrying a box and he states he missed took the uneven pavement which caused him to trip and fall forwards landing face first on the pavement. He scratched up the right upper quadrant of his eyeglasses and suffered a significant periorbital contusion and superficial la ceration right eyebrow annually 3 cm laceration dorsal aspect of his right hand. He skinned up his knees a wee bit as well. He denies headache nausea vomiting or change in visual field. On exam he has bilateral crackles lower lung deng and severe dependent edema up past his knees bilaterally. This is what is contributing to him falling as he has a very shuffling type gait. Plan routine labs to be done to check on renal function and BNP before starting him on medications. Laceration will be repaired right dorsal hand but I see no need for x-rays or CT of the head at this time - Re-Assessments/Exams Free Text/Narrative Re-Assessment/Exam: 08/19/21 13:55 3.0 cm laceration dorsal right lewis sutured under local anesthetic using 4-0 Ethilon x10 completed to provide wound closure. These will need to be removed in 12 days time in the clinic. In the interim he will apply topical antibiotic such as bacitracin or Polysporin once daily and cover with a bandage to keep clean if needed. The plan will be to place him on Dioxycycline 100 mg twice daily for 8 days to prevent secondary wound infection since it has been open for 24 hours. Tetanus diphtheria pertussis vaccine was also updated today. 08/19/21 14:02 White count is minimally elevated at 10.65. Differential shows 75.8% neutrophils hemoglobin is 12.7 with hematocrit of 41.1 platelet count is 115,000 which is low. Sodium 136 with a potassium of 4.3. Chloride 102 with a bicarb of 30. Anion gap is 8.3 with a BUN of 17. Creatinine 0.9 with a GFR greater than 60. Glucose is 91. Calcium is 8.3. Magnesium 2.1. Liver function normal troponin I is less than 0.017 BNP is 1133. Total protein is 6.0 with an albumin fraction of 3.0 which is slightly low. Since renal function is normal I will discontinue his hydrochlorothiazide and replaced with Lasix 40 mg every morning with Aldactone 25 mg in the morning as well for potassium sparing effect. He is to step on the scale daily and write down the numbers and take them to his doctor in 12 days time when he has his sutures removed to see if we can reduce the dosage of Lasix. He will also need lab work done to make sure he does not become hyperkalemic on the Aldactone. Departure - Departure Time of Disposition: 14:09 Disposition: Home, Self-Care 01 Condition: Fair Clinical Impression: Dependent edema, Mild congestive heart failure Fall Qualifiers: Encounter type: initial encounter Qualified Code(s): W19.XXXA - Unspecified fall, initial encounter Periorbital contusion of right eye Qualifiers: Encounter type: initial encounter Qualified Code(s): S05.11XA - Contusion of eyeball and orbital tissues, right eye, initial encounter Laceration of right hand with delay in treatment Qualifiers: Encounter type: initial encounter Qualified Code(s): S61.411A - Laceration without foreign body of right hand, initial encounter - Discharge Information *PRESCRIPTION DRUG MONITORING PROGRAM REVIEWED*: Not Applicable *COPY OF PRESCRIPTION DRUG MONITORING REPORT IN PATIENT OTIS: Not Applicable Prescriptions: Spironolactone [Aldactone] 25 mg PO DAILY #30 tab Furosemide [Lasix] 40 mg PO DAILY #30 tab Doxycycline [Vibra-Tabs] 100 mg PO BID #16 tab Instructions: Heart Failure, Self-Care, [id number], Facial or Scalp Contusion, [id number], Head Injury, Adult, [id number], Laceration Care, Adult, [id number] Referrals: Yamil Watson MD [Primary Care Provider] - Forms: ED Department Discharge Additional Instructions: Evaluation in the emergency room today in regards to getting tripped up and falling yesterday with blunt facial trauma and significant swelling and bruising around your right eye with superficial laceration right eyebrow area but clinically no evidence of bony injury or intracranial bleeding or fracture. You did suffer a 3 cm laceration dorsal aspect of your right hand which was full- thickness skin and therefore allowed closure with 10 sutures under local anesthetic. Since this wound has been open for 24 hours you will need to take antibiotics doxycycline 100 mg twice daily for the next 8 days to prevent secondary wound infection. Of note he should not take this medication at the same time as your vitamins or with milk. Major problem identified is mild heart failure not uncommon for your age with a few crackles in both lower lungs and significant swelling of both lower extremities up to the knees bilaterally. You will need to discontinue your hydrochlorothiazide tablet as you no longer require it. It will be replaced with Lasix 40 mg once daily every morning with Aldactone 25 mg tablet once daily every morning to reduce fluid retention. You will need lab test done at the time you see your doctor in 12 days time to have your stitches removed from your right hand. This wound is to be cleansed daily with soap and water. Showering is okay. Then apply topical antibiotic such as bacitracin or Polysporin once daily to the wound and cover with a bandage to keep clean. If if the wound is not going to get dirty may be left open to heal as it does heal better and open air. I would suggest you step on the scale and write down your weight every morning until you see your doctor in 12 days time so that we can identify how much fluid you have lost with the new medications. Sepsis Event Note (ED) - Focused Exam Vital Signs: Vital Signs Temp Pulse Resp BP Pulse Ox 08/19/21 12:29 36.3 C 65 16 127/64 100 - My Orders Last 24 Hours: My Active Orders 08/19/21 12:43 Vaccine to be Administered/Admin Charge [RC] ASDIRECTED - Assessment/Plan Last 24 Hours: My Active Orders 08/19/21 12:43 Vaccine to be Administered/Admin Charge [RC] ASDIRECTED
[2021-08-19] MEDS ORDERED: Lidocaine 1% 10 ML MDV INJECT ONE (12:42)
[2021-08-19] MEDS ORDERED: Diphtheria,Pertussis(Acell),Tetanus Vaccine 0.5 ML Syringe IM ONE (12:43)
[2021-08-19 19:11] VITALS: BP 122/60; PULSE 68
== END 2021-08-19 14:20 | disposition home or self-care (01) ==
LOC: JD.ED 12:05
DX: S61.411A Laceration without foreign body of right hand, initial encounter (principal); S05.11XA Contusion of eyeball and orbital tissues, right eye, initial encounter; I50.9 Heart failure, unspecified; J44.9 Chronic obstructive pulmonary disease, unspecified; E03.9 Hypothyroidism, unspecified; N40.0 Benign prostatic hyperplasia without lower urinary tract symptoms; Z88.0 Allergy status to penicillin; Z79.899 Other long term (current) drug therapy; Z23 Encounter for immunization; W18.39XA Other fall on same level, initial encounter
CPT/HCPCS: 12002; 36415; 80053; 83735; 83880; 84484; 85025; 90471; 90715; 99283-25

== ENCOUNTER 2021-09-20 14:47 | Observation (INO) | payer MEDICARE, OTHER ==
[2021-09-20] MEDS ORDERED: Sodium Chloride 0.9% 500 ML IV ONE (15:26)
--- NOTE | 2021-09-20 15:55 | CR ---
Chest: Portable view of the chest was obtained. Comparison: Prior chest x-ray of 09/01/20. Elevated left hemidiaphragm is seen which is stable. Lungs otherwise are clear. Heart size is felt to be within normal limits. Upper mediastinum is within normal limits. Bony structures show nothing acute. Impression: 1. Nothing acute is seen on portable chest x-ray. Diagnostic code #2
--- NOTE | 2021-09-20 16:10 | EDM.PDOC ---
ED HPI GENERAL MEDICAL PROBLEM - General Chief Complaint: General Stated Complaint: WEAK Time Seen by Provider: 09/20/21 16:04 Source of Information: Reports: Patient, Family History Limitations: Reports: No Limitations - History of Present Illness INITIAL COMMENTS - FREE TEXT/NARRATIVE: Patient is a 80-year-old male with a medical history of polycythemia vera and congestive heart failure presenting with a chief complaint of generalized weakness. Duration of symptoms has been for several weeks now. Patient reports significant effort required to even cough or walk around the house. He reports decreased appetite during this period of time. He is not experienced any nausea, vomiting or diarrhea. Patient denies any significant pain anywhere. The patient's states that his legs seem to be swollen but not any different from patient's baseline. The patient saw his oncologist/pigeon fancier last week and there is only a slight adjustment with his hydroxyurea. Otherwise, no significant changes. He has not received the Covid vaccine. - Related Data Allergies Allergy/AdvReac Type Severity Reaction Status Date / Time Penicillins Allergy Cannot Verified 09/20/21 14:59 Remember Home Meds: Home Meds Levothyroxine 150 mcg PO ASDIRECTED 01/17/17 [History] Levothyroxine 175 mcg PO ASDIRECTED 01/17/17 [History] Albuterol [Ventolin HFA] 2 puff INH Q4H PRN 09/02/20 [History] Albuterol/Ipratropium [DuoNeb 3.0-0.5 MG/3 ML] 1 unit NEB Q6H 09/02/20 [History] Budesonide/Formoterol [Symbicort 80-4.5 MCG] 2 puff INH BID 09/02/20 [History] Cholecalciferol (Vitamin D3) [Vitamin D3] 2,000 units PO DAILY 09/02/20 [History] Dupilumab [Dupixent Pen] 300 mg IM Q14D 09/02/20 [History] EPINEPHrine [Epinephrine] 1 syringe IM ASDIRECTED 09/02/20 [History] Lutein/Minerals/Vit A,C & E [Ocuvite] 1 tab PO DAILY 09/02/20 [History] Mineral Oil 1 applic TOP ASDIRECTED 09/02/20 [History] Multivitamin with Iron [Multivitamins with Iron] 1 tab PO DAILY 12/04/20 [History] Tamsulosin [Flomax] 0.4 mg PO PCDINNER 09/02/20 [History] Triamcinolone Acetonide [Triamcinolone Acetonide 0.1% Oint] 1 applic TOP DAILY PRN 09/02/20 [History] predniSONE [Prednisone] 10 mg PO DAILY #21 tab.ds.pk 09/07/20 [Rx] Doxycycline [Vibra-Tabs] 100 mg PO BID #16 tab 08/19/21 [Rx] Furosemide [Lasix] 40 mg PO DAILY #30 tab 08/19/21 [Rx] Spironolactone [Aldactone] 25 mg PO DAILY #30 tab 08/19/21 [Rx] Past Medical History HEENT History: Reports: Hard of Hearing, Other (See Below) Other HEENT History: 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 Cardiovascular History: Reports: Heart Failure, Heart Murmur Respiratory History: Reports: Asthma, COPD, Sleep Apnea Gastrointestinal History: Reports: Other (See Below) Other Gastrointestinal History: hernia Genitourinary History: Reports: BPH Endocrine/Metabolic History: Reports: Hypothyroidism Hematologic History: Reports: Polycythemia, Other (See Below) Other Hematologic History: myelofibrosis Oncologic (Cancer) History: Reports: Non-Hodgkin's Lymphoma - Infectious Disease History Infectious Disease History: Reports: Novel Coronavirus - Past Surgical History HEENT Surgical History: Reports: Cataract Surgery, Naso-Sinus Surgery, Other (See Below) Social & Family History - Family History Family Medical History: No Pertinent Family History - Tobacco Use Tobacco Use Status *Q: Former Tobacco User Used Tobacco, but Quit: Yes Month/Year Tobacco Last Used: 28 years ago - Caffeine Use Caffeine Use: Reports: Coffee - Recreational Drug Use Recreational Drug Use: No - Living Situation & Occupation Living situation: Reports: , with Spouse Occupation: Retired ED ROS GENERAL - Review of Systems Review Of Systems: See Below Free Text/Narrative/Comment: In addition to that documented in the HPI above, the additional ROS was obtained: Constitutional: Denies fevers or chills Eyes: Denies vision changes ENMT: Denies sore throat CV: Denies chest pain Resp: Denies SOB GI: Denies vomiting or diarrhea : Denies painful urination MSK: Denies recent trauma Skin: Denies new rashes Neuro: Denies new numbness or tingling or weakness Endocrine: Per HPI Heme: Per HPI ED EXAM, GENERAL - Physical Exam Exam: See Below Free Text/Narrative:: I have reviewed the triage vital signs Const: Well nourished, well developed, appears stated age Eyes: Pupils Equal and reactive to light bilaterally, no conjunctival injection HENT: No signs of trauma or swelling, Neck supple without meningismus CV: Regular Rate Rhythm, Warm, well-perfused extremities. Mild bilateral lower extremity edema. RESP: Unlabored respiratory effort GI: soft, non-tender, non-distended, no masses MSK: No gross deformities appreciated Skin: Warm, dry. No rashes Neuro: Alert, adoption social worker II-XII grossly intact. Sensation and motor function of extremities grossly intact. Psych: Appropriate mood and affect. Course - Vital Signs Last Recorded V/S: Last Vital Signs Temp 36.4 C 09/20/21 14:56 Pulse 86 09/20/21 14:56 Resp 16 09/20/21 14:56 BP 97/59 L 09/20/21 14:56 Pulse Ox 91 L 09/20/21 14:56 - Orders/Labs/Meds Orders: Active Orders 24 hr Category Date Time Status Admission Status [Patient Status] [ADT] Routine ADT 09/20/21 18:14 Active BLOOD CULTURE [MREF] Stat Lab 09/20/21 18:00 Ordered BLOOD CULTURE [MREF] Stat Lab 09/20/21 18:00 Ordered KETONES,BLOOD [CHEM] Stat Lab 09/20/21 16:24 Received PRO B-TYPE NATRIUR PEPT,BNPPRO [CHEM] Stat Lab 09/20/21 16:24 Received Cefepime [Maxipime] 2 gm Med 09/20/21 18:00 Active Sodium Chloride 0.9% [Normal Saline] 50 ml IV ONETIME Blood Culture x2 Reflex Set [OM.PC] Stat Oth 09/20/21 18:00 Ordered Medication Orders Cefepime HCl 2 gm/ Sodium (Chloride) 50 mls @ 100 mls/hr IV ONETIME ONE Stop: 09/20/21 18:29 Last Admin: 09/20/21 18:10 Dose: 100 mls/hr Documented by: REYNALDO Labs: Laboratory Tests 09/20/21 09/20/21 09/20/21 Range/Units 16:22 16:24 16:24 WBC 10.57 H (4.23-9.07) K/mm3 RBC 2.60 L (4.63-6.08) M/mm3 Hgb 9.5 L D (13.7-17.5) gm/dl Hct 30.6 L (40.1-51.0) % MCV 117.7 H D (79.0-92.2) fl MCH 36.5 H (25.7-32.2) pg MCHC 31.0 L (32.2-35.5) g/dl RDW Std Deviation 80.0 H (35.1-43.9) fL Plt Count 63 L (163-337) K/mm3 MPV 11.2 (9.4-12.3) fl Neut % (Auto) 61.6 (34.0-67.9) % Lymph % (Auto) 14.3 L (21.8-53.1) % Garden % (Auto) 17.4 H (5.3-12.2) % Eos % (Auto) 4.4 (0.8-7.0) Baso % (Auto) 0.4 (0.1-1.2) % Neut # (Auto) 6.51 H (1.78-5.38) K/mm3 Lymph # (Auto) 1.51 (1.32-3.57) K/mm3 Garden # (Auto) 1.84 H (0.30-0.82) K/mm3 Eos # (Auto) 0.47 (0.04-0.54) K/mm3 Baso # (Auto) 0.04 (0.01-0.08) K/mm3 Manual Slide Review Percent Retic (0.51-1.81) % PT 14.4 H (9.7-12.0) SECONDS INR 1.31 Sodium (136-145) mEq/L Potassium (3.5-5.1) mEq/L Chloride (98-107) mEq/L Carbon Dioxide (21-32) mEq/L Anion Gap (5-15) BUN (7-18) mg/dL Creatinine (0.7-1.3) mg/dL Est Cr Clr Drug Dosing mL/min Estimated GFR (MDRD) (>60) mL/min BUN/Creatinine Ratio (14-18) Glucose (70-99) mg/dL Calcium (8.5-10.1) mg/dL Total Bilirubin (0.2-1.0) mg/dL AST (15-37) U/L ALT (16-63) U/L Alkaline Phosphatase (46-116) U/L C-Reactive Protein (<1.0) mg/dL Total Protein (6.4-8.2) g/dl Albumin (3.4-5.0) g/dl Globulin gm/dL Albumin/Globulin Ratio (1-2) Urine Color (Yellow) Urine Appearance (Clear) Urine pH (5.0-8.0) Ur Specific [place] (1.005-1.030) Urine Protein (Negative) Urine Glucose (UA) (Negative) Urine Ketones (Negative) Urine Occult Blood (Negative) Urine Nitrite (Negative) Urine Bilirubin (Negative) Urine Urobilinogen (0.2-1.0) Ur Leukocyte Esterase (Negative) Urine RBC (0-5) /hpf Urine WBC (0-5) /hpf Ur Squamous Epith Cells (0-5) /hpf Urine Bacteria (FEW) /hpf Urine Mucus (FEW) /hpf SARS-CoV-2 RNA (CONSTANTINO) Negative (NEGATIVE) 09/20/21 09/20/21 09/20/21 Range/Units 16:24 16:24 17:40 WBC (4.23-9.07) K/mm3 RBC (4.63-6.08) M/mm3 Hgb (13.7-17.5) gm/dl Hct (40.1-51.0) % MCV (79.0-92.2) fl MCH (25.7-32.2) pg MCHC (32.2-35.5) g/dl RDW Std Deviation (35.1-43.9) fL Plt Count (163-337) K/mm3 MPV (9.4-12.3) fl Neut % (Auto) (34.0-67.9) % Lymph % (Auto) (21.8-53.1) % Garden % (Auto) (5.3-12.2) % Eos % (Auto) (0.8-7.0) Baso % (Auto) (0.1-1.2) % Neut # (Auto) (1.78-5.38) K/mm3 Lymph # (Auto) (1.32-3.57) K/mm3 Garden # (Auto) (0.30-0.82) K/mm3 Eos # (Auto) (0.04-0.54) K/mm3 Baso # (Auto) (0.01-0.08) K/mm3 Manual Slide Review Percent Retic 1.05 (0.51-1.81) % PT (9.7-12.0) SECONDS INR Sodium 134 L (136-145) mEq/L Potassium 4.0 (3.5-5.1) mEq/L Chloride 101 (98-107) mEq/L Carbon Dioxide 27 (21-32) mEq/L Anion Gap 10.0 (5-15) BUN 23 H (7-18) mg/dL Creatinine 1.2 (0.7-1.3) mg/dL Est Cr Clr Drug Dosing 53.16 mL/min Estimated GFR (MDRD) 58 (>60) mL/min BUN/Creatinine Ratio 19.2 H (14-18) Glucose 98 (70-99) mg/dL Calcium 8.1 L (8.5-10.1) mg/dL Total Bilirubin 1.2 H (0.2-1.0) mg/dL AST 16 (15-37) U/L ALT 8 L (16-63) U/L Alkaline Phosphatase 96 (46-116) U/L C-Reactive Protein 2.2 H* (<1.0) mg/dL Total Protein 5.5 L (6.4-8.2) g/dl Albumin 2.6 L (3.4-5.0) g/dl Globulin 2.9 gm/dL Albumin/Globulin Ratio 0.9 L (1-2) Urine Color Yellow (Yellow) Urine Appearance Clear (Clear) Urine pH 6.0 (5.0-8.0) Ur Specific [place] 1.015 (1.005-1.030) Urine Protein Negative (Negative) Urine Glucose (UA) Negative (Negative) Urine Ketones Negative (Negative) Urine Occult Blood Trace-intact H (Negative) Urine Nitrite Negative (Negative) Urine Bilirubin Negative (Negative) Urine Urobilinogen 0.2 (0.2-1.0) Ur Leukocyte Esterase Negative (Negative) Urine RBC 0-5 (0-5) /hpf Urine WBC 0-5 (0-5) /hpf Ur Squamous Epith Cells 0-5 (0-5) /hpf Urine Bacteria Few (FEW) /hpf Urine Mucus Many H (FEW) /hpf SARS-CoV-2 RNA (CONSTANTINO) (NEGATIVE) Meds: Medications Generic Name Dose Route Start Last Admin Trade Name Tino PRN Reason Stop Dose Admin Cefepime HCl 2 gm/ Sodium 50 mls @ 100 mls/hr 09/20/21 18:00 09/20/21 18:10 Chloride IV 09/20/21 18:29 100 mls/hr ONETIME ONE Administration Discontinued Medications Generic Name Dose Route Start Last Admin Trade Name Tino PRN Reason Stop Dose Admin Sodium Chloride 500 mls @ 250 mls/hr 09/20/21 15:26 09/20/21 16:12 Normal Saline IV 09/20/21 17:25 250 mls/hr .BOLUS ONE Administration - Re-Assessments/Exams Free Text/Narrative Re-Assessment/Exam: 09/20/21 18:27 Spoke with patient's pigeon fancier/oncologist on-call Dr. Hall at [place], regarding recommendations and treatment plan given patient's change in hemoglobin and platelets. Dr. Hall recommended stopping hydroxyurea and obtaining blood cultures and starting broad-spectrum antibiotics. She was in favor of overnight observation and monitoring patient's symptoms, as well as lab tests. Departure - Departure Time of Disposition: 18:00 Disposition: Admitted As Inpatient 67 Clinical Impression: Anemia, Sepsis - Discharge Information Referrals: Yamil Watson MD [Primary Care Provider] - Forms: ED Department Discharge Sepsis Event Note (ED) - Evaluation Sepsis Screening Result: No Definite Risk - Focused Exam Vital Signs: Vital Signs Temp Pulse Resp BP Pulse Ox 09/20/21 14:56 36.4 C 86 16 97/59 L 91 L - My Orders Last 24 Hours: My Active Orders 09/20/21 16:24 KETONES,BLOOD [CHEM] Stat PRO B-TYPE NATRIUR PEPT,BNPPRO [CHEM] Stat 09/20/21 18:00 BLOOD CULTURE [MREF] Stat BLOOD CULTURE [MREF] Stat Cefepime [Maxipime] 2 gm Sodium Chloride 0.9% [Normal Saline] 50 ml IV ONETIME Blood Culture x2 Reflex Set [OM.PC] Stat 09/20/21 18:14 Admission Status [Patient Status] [ADT] Routine - Assessment/Plan Last 24 Hours: My Active Orders 09/20/21 16:24 KETONES,BLOOD [CHEM] Stat PRO B-TYPE NATRIUR PEPT,BNPPRO [CHEM] Stat 09/20/21 18:00 BLOOD CULTURE [MREF] Stat BLOOD CULTURE [MREF] Stat Cefepime [Maxipime] 2 gm Sodium Chloride 0.9% [Normal Saline] 50 ml IV ONETIME Blood Culture x2 Reflex Set [OM.PC] Stat 09/20/21 18:14 Admission Status [Patient Status] [ADT] Routine Assessment:: Patient is a 80-year-old male presenting to emergency room with significant weakness and fatigue. ER course demonstrates initial hypotension with blood pressure 80s over 60s which did improve to 110/61 after approximately 350 cc IV fluid bolus. IV fluid was used sparingly given patient's underlying CHF. Laboratory studies demonstrate significant change in patient's hemoglobin from 12.7-9.5. In addition, he had significant drop in platelets. Otherwise, elevated BUN consistent with clinical diagnosis of dehydration. His pigeon fancier oncologist recommends admission with broad-spectrum antibiotics for underlying infectious process. At this point in time, chest x-ray and urinalysis did not demonstrate any evidence of infection. Blood cultures were obtained and cefepime was initiated. I spoke with Dr. Todd who agreed accept patient for admission.
[2021-09-20] MEDS ORDERED: Cefepime 2 GM in Sodium Chloride 0.9% 50 ML IV ONE (18:00)
[2021-09-20] MEDS ORDERED: Morphine 2 MG/ML SYRINGE IVPUSH PRN (19:08)
[2021-09-20] MEDS ORDERED: Docusate Sodium 100 MG Cap PO PRN (19:08)
[2021-09-20] MEDS ORDERED: Promethazine 12.5 MG in Sodium Chloride 0.9% 50 ML IV PRN (19:08)
[2021-09-20] MEDS ORDERED: Albuterol/Ipratropium 3.0-0.5 MG/3 ML Neb Soln NEB PRN (19:08)
[2021-09-20] MEDS ORDERED: oxyCODONE 5 MG Tab PO PRN (19:08)
[2021-09-20] MEDS ORDERED: ALBUTEROL INH PRN (19:11)
[2021-09-20] MEDS ORDERED: DUPILUMAB 300 MG/2 ML IM SCH (19:15)
[2021-09-20] MEDS ORDERED: PREDNISONE 10 MG PO SCH (19:15)
--- NOTE | 2021-09-20 19:25 | PCM.HP.2 ---
H&P History of Present Illness - General Date of Service: 09/20/21 Admit Problem/Dx: Admission Diagnosis/Problem Admission Diagnosis/Problem Anemia Source of Information: Patient, Family, Other - History of Present Illness Initial Comments - Free Text/Narative: Patient is a 80-year-old male with a history of polycythemia vera, history of positive COVID-19, anemia and thrombocytopenia who presents to the ER due to generalized weakness. As patient and the , patient has been having generalized weakness over the past 2 weeks but it has been worsening over the past 2 days. He also complains of low energy and poor appetite. Patient had positive COVID-19 1 year ago. He has not vaccinated against COVID-19. In the ER, she was found to have mild elevation of white blood cells, thrombocytopenia and anemia. His blood pressure initially was low but it responded to 350 cc NS bolus. Chest x-ray no acute change. ER physician spoke to hematology/oncologist Dr. Hall at [facility] who suggested to stop hydroxyurea and obtain blood culture and start him on broad-spectrum antibiotics. He also suggested to observe him overnight. - Related Data Allergies/Adverse Reactions: Allergies Allergy/AdvReac Type Severity Reaction Status Date / Time Penicillins Allergy Cannot Verified 09/20/21 14:59 Remember Home Medications: Home Meds Levothyroxine 150 mcg PO ASDIRECTED 01/17/17 [History] Levothyroxine 175 mcg PO ASDIRECTED 01/17/17 [History] Albuterol [Ventolin HFA] 2 puff INH Q4H PRN 09/02/20 [History] Albuterol/Ipratropium [DuoNeb 3.0-0.5 MG/3 ML] 1 unit NEB Q6H 09/02/20 [History] Budesonide/Formoterol [Symbicort 80-4.5 MCG] 2 puff INH BID 09/02/20 [History] Cholecalciferol (Vitamin D3) [Vitamin D3] 2,000 units PO DAILY 09/02/20 [History] EPINEPHrine [Epinephrine] 1 syringe IM ASDIRECTED 09/02/20 [History] Lutein/Minerals/Vit A,C & E [Ocuvite] 1 tab PO DAILY 09/02/20 [History] Mineral Oil 1 applic TOP ASDIRECTED 09/02/20 [History] Multivitamin with Iron [Multivitamins with Iron] 1 tab PO DAILY 09/02/20 [Histor y] Tamsulosin [Flomax] 0.4 mg PO PCDINNER 09/02/20 [History] Triamcinolone Acetonide [Triamcinolone Acetonide 0.1% Oint] 1 applic TOP DAILY PRN 09/02/20 [History] Spironolactone [Aldactone] 25 mg PO DAILY #30 tab 08/19/21 [Rx] Furosemide 20 mg PO DAILY 09/20/21 [History] Hydroxyurea 500 mg PO DAILY 09/20/21 [History] Past Medical History HEENT History: Reports: Hard of Hearing, Other (See Below) Other HEENT History: 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 Cardiovascular History: Reports: Heart Failure, Heart Murmur Respiratory History: Reports: Asthma, COPD, Sleep Apnea Gastrointestinal History: Reports: Other (See Below) Other Gastrointestinal History: hernia Genitourinary History: Reports: BPH Endocrine/Metabolic History: Reports: Hypothyroidism Hematologic History: Reports: Polycythemia, Other (See Below) Other Hematologic History: myelofibrosis Oncologic (Cancer) History: Reports: Non-Hodgkin's Lymphoma - Infectious Disease History Infectious Disease History: Reports: Novel Coronavirus - Past Surgical History HEENT Surgical History: Reports: Cataract Surgery, Naso-Sinus Surgery, Other (See Below) Social & Family History - Family History Family Medical History: No Pertinent Family History (Denies genetic diseases in family) - Tobacco Use Tobacco Use Status *Q: Former Tobacco User Used Tobacco, but Quit: Yes Month/Year Tobacco Last Used: 28 years ago - Caffeine Use Caffeine Use: Reports: Coffee - Recreational Drug Use Recreational Drug Use: No - Living Situation & Occupation Living situation: Reports: , with Spouse Occupation: Retired H&P Review of Systems - Review of Systems: Review Of Systems: See Below Review of Systems Comment:: Positive for generalized weakness, low energy and poor appetite. All other systems were reviewed and are negative. Exam - Exam Exam: See Below - Vital Signs Vital Signs: Last Vital Signs Temp 36.4 C 09/20/21 14:56 Pulse 86 09/20/21 14:56 Resp 16 09/20/21 14:56 BP 97/59 L 09/20/21 14:56 Pulse Ox 91 L 09/20/21 14:56 Weight: 78.109 kg - Exam Physical Exam Comments:: Physical Exam: General: No acute distress HEENT: Conjunctiva Clear, EOMI, Mucosa Moist & [place] Neck: Supple, Trachea Midline, NO JVD Lungs: CTA, normal Respiratory Effort, no Wheezing Cardiovascular: Regular Rate, Regular Rhythm GI/Abdominal Exam: Normal Bowel Sounds, Soft, Non-Tender, No Organomegaly, No Distention, No Abnormal Bruit, No Mass Extremities: Normal Inspection, Non-Tender, pitting pedal Edema+, Normal Capillary Refill Skin: Warm, Dry, 2-3 small eschars, surrounding skin erythema Neurology: A+O x 3, no focal neurological deficits Psychiatric: Normal Mood - Patient Data Lab Results Last 24 hrs: Laboratory Results - last 24 hr 09/20/21 09/20/21 09/20/21 Range/Units 16:22 16:24 16:24 WBC 10.57 H (4.23-9.07) K/mm3 RBC 2.60 L (4.63-6.08) M/mm3 Hgb 9.5 L D (13.7-17.5) gm/dl Hct 30.6 L (40.1-51.0) % MCV 117.7 H D (79.0-92.2) fl MCH 36.5 H (25.7-32.2) pg MCHC 31.0 L (32.2-35.5) g/dl RDW Std Deviation 80.0 H (35.1-43.9) fL Plt Count 63 L (163-337) K/mm3 MPV 11.2 (9.4-12.3) fl Neut % (Auto) 61.6 (34.0-67.9) % Lymph % (Auto) 14.3 L (21.8-53.1) % Parker % (Auto) 17.4 H (5.3-12.2) % Eos % (Auto) 4.4 (0.8-7.0) Baso % (Auto) 0.4 (0.1-1.2) % Neut # (Auto) 6.51 H (1.78-5.38) K/mm3 Lymph # (Auto) 1.51 (1.32-3.57) K/mm3 Parker # (Auto) 1.84 H (0.30-0.82) K/mm3 Eos # (Auto) 0.47 (0.04-0.54) K/mm3 Baso # (Auto) 0.04 (0.01-0.08) K/mm3 Manual Slide Review Percent Retic (0.51-1.81) % PT 14.4 H (9.7-12.0) SECONDS INR 1.31 Sodium (136-145) mEq/L Potassium (3.5-5.1) mEq/L Chloride (98-107) mEq/L Carbon Dioxide (21-32) mEq/L Anion Gap (5-15) BUN (7-18) mg/dL Creatinine (0.7-1.3) mg/dL Est Cr Clr Drug Dosing mL/min Estimated GFR (MDRD) (>60) mL/min BUN/Creatinine Ratio (14-18) Glucose (70-99) mg/dL Calcium (8.5-10.1) mg/dL Total Bilirubin (0.2-1.0) mg/dL AST (15-37) U/L ALT (16-63) U/L Alkaline Phosphatase (46-116) U/L C-Reactive Protein (<1.0) mg/dL Total Protein (6.4-8.2) g/dl Albumin (3.4-5.0) g/dl Globulin gm/dL Albumin/Globulin Ratio (1-2) Urine Color (Yellow) Urine Appearance (Clear) Urine pH (5.0-8.0) Ur Specific [place] (1.005-1.030) Urine Protein (Negative) Urine Glucose (UA) (Negative) Urine Ketones (Negative) Urine Occult Blood (Negative) Urine Nitrite (Negative) Urine Bilirubin (Negative) Urine Urobilinogen (0.2-1.0) Ur Leukocyte Esterase (Negative) Urine RBC (0-5) /hpf Urine WBC (0-5) /hpf Ur Squamous Epith Cells (0-5) /hpf Urine Bacteria (FEW) /hpf Urine Mucus (FEW) /hpf Ketones (0.0-0.3) mM SARS-CoV-2 RNA (CONSTANTINO) Negative (NEGATIVE) 09/20/21 09/20/21 09/20/21 Range/Units 16:24 16:24 16:24 WBC (4.23-9.07) K/mm3 RBC (4.63-6.08) M/mm3 Hgb (13.7-17.5) gm/dl Hct (40.1-51.0) % MCV (79.0-92.2) fl MCH (25.7-32.2) pg MCHC (32.2-35.5) g/dl RDW Std Deviation (35.1-43.9) fL Plt Count (163-337) K/mm3 MPV (9.4-12.3) fl Neut % (Auto) (34.0-67.9) % Lymph % (Auto) (21.8-53.1) % Parker % (Auto) (5.3-12.2) % Eos % (Auto) (0.8-7.0) Baso % (Auto) (0.1-1.2) % Neut # (Auto) (1.78-5.38) K/mm3 Lymph # (Auto) (1.32-3.57) K/mm3 Parker # (Auto) (0.30-0.82) K/mm3 Eos # (Auto) (0.04-0.54) K/mm3 Baso # (Auto) (0.01-0.08) K/mm3 Manual Slide Review Percent Retic 1.05 (0.51-1.81) % PT (9.7-12.0) SECONDS INR Sodium 134 L (136-145) mEq/L Potassium 4.0 (3.5-5.1) mEq/L Chloride 101 (98-107) mEq/L Carbon Dioxide 27 (21-32) mEq/L Anion Gap 10.0 (5-15) BUN 23 H (7-18) mg/dL Creatinine 1.2 (0.7-1.3) mg/dL Est Cr Clr Drug Dosing 53.16 mL/min Estimated GFR (MDRD) 58 (>60) mL/min BUN/Creatinine Ratio 19.2 H (14-18) Glucose 98 (70-99) mg/dL Calcium 8.1 L (8.5-10.1) mg/dL Total Bilirubin 1.2 H (0.2-1.0) mg/dL AST 16 (15-37) U/L ALT 8 L (16-63) U/L Alkaline Phosphatase 96 (46-116) U/L C-Reactive Protein 2.2 H* (<1.0) mg/dL Total Protein 5.5 L (6.4-8.2) g/dl Albumin 2.6 L (3.4-5.0) g/dl Globulin 2.9 gm/dL Albumin/Globulin Ratio 0.9 L (1-2) Urine Color (Yellow) Urine Appearance (Clear) Urine pH (5.0-8.0) Ur Specific [place] (1.005-1.030) Urine Protein (Negative) Urine Glucose (UA) (Negative) Urine Ketones (Negative) Urine Occult Blood (Negative) Urine Nitrite (Negative) Urine Bilirubin (Negative) Urine Urobilinogen (0.2-1.0) Ur Leukocyte Esterase (Negative) Urine RBC (0-5) /hpf Urine WBC (0-5) /hpf Ur Squamous Epith Cells (0-5) /hpf Urine Bacteria (FEW) /hpf Urine Mucus (FEW) /hpf Ketones 0.31 (0.0-0.3) mM SARS-CoV-2 RNA (CONSTANTINO) (NEGATIVE) 09/20/21 Range/Units 17:40 WBC (4.23-9.07) K/mm3 RBC (4.63-6.08) M/mm3 Hgb (13.7-17.5) gm/dl Hct (40.1-51.0) % MCV (79.0-92.2) fl MCH (25.7-32.2) pg MCHC (32.2-35.5) g/dl RDW Std Deviation (35.1-43.9) fL Plt Count (163-337) K/mm3 MPV (9.4-12.3) fl Neut % (Auto) (34.0-67.9) % Lymph % (Auto) (21.8-53.1) % Parker % (Auto) (5.3-12.2) % Eos % (Auto) (0.8-7.0) Baso % (Auto) (0.1-1.2) % Neut # (Auto) (1.78-5.38) K/mm3 Lymph # (Auto) (1.32-3.57) K/mm3 Parker # (Auto) (0.30-0.82) K/mm3 Eos # (Auto) (0.04-0.54) K/mm3 Baso # (Auto) (0.01-0.08) K/mm3 Manual Slide Review Percent Retic (0.51-1.81) % PT (9.7-12.0) SECONDS INR Sodium (136-145) mEq/L Potassium (3.5-5.1) mEq/L Chloride (98-107) mEq/L Carbon Dioxide (21-32) mEq/L Anion Gap (5-15) BUN (7-18) mg/dL Creatinine (0.7-1.3) mg/dL Est Cr Clr Drug Dosing mL/min Estimated GFR (MDRD) (>60) mL/min BUN/Creatinine Ratio (14-18) Glucose (70-99) mg/dL Calcium (8.5-10.1) mg/dL Total Bilirubin (0.2-1.0) mg/dL AST (15-37) U/L ALT (16-63) U/L Alkaline Phosphatase (46-116) U/L C-Reactive Protein (<1.0) mg/dL Total Protein (6.4-8.2) g/dl Albumin (3.4-5.0) g/dl Globulin gm/dL Albumin/Globulin Ratio (1-2) Urine Color Yellow (Yellow) Urine Appearance Clear (Clear) Urine pH 6.0 (5.0-8.0) Ur Specific [place] 1.015 (1.005-1.030) Urine Protein Negative (Negative) Urine Glucose (UA) Negative (Negative) Urine Ketones Negative (Negative) Urine Occult Blood Trace-intact H (Negative) Urine Nitrite Negative (Negative) Urine Bilirubin Negative (Negative) Urine Urobilinogen 0.2 (0.2-1.0) Ur Leukocyte Esterase Negative (Negative) Urine RBC 0-5 (0-5) /hpf Urine WBC 0-5 (0-5) /hpf Ur Squamous Epith Cells 0-5 (0-5) /hpf Urine Bacteria Few (FEW) /hpf Urine Mucus Many H (FEW) /hpf Ketones (0.0-0.3) mM SARS-CoV-2 RNA (CONSTANTINO) (NEGATIVE) Result Diagrams: 09/20/21 16:24 09/20/21 16:24 Sepsis Event Note - Evaluation Sepsis Screening Result: No Definite Risk - Focused Exam Vital Signs: Vital Signs Temp Pulse Resp BP Pulse Ox 09/20/21 14:56 36.4 C 86 16 97/59 L 91 L Problem List Initiated/Reviewed/Updated: Yes Orders Last 24hrs: Active Orders 24 hr Category Date Time Status Admission Status [Patient Status] [ADT] Routine ADT 09/20/21 18:14 Active Bedrest Bedside Commode [RC] ASDIRECTED Care 09/20/21 19:08 Ordered Cardiac Monitoring [RC] CONTINUOUS Care 09/20/21 19:08 Ordered Intake and Output [RC] QSHIFT Care 09/20/21 19:08 Ordered Oxygen Therapy [RC] PRN Care 09/20/21 19:08 Ordered Pulse Oximetry [RC] CONTINUOUS Care 09/20/21 19:08 Ordered RT Aerosol Therapy [RC] ASDIRECTED Care 09/20/21 19:08 Ordered RT Aerosol Therapy [RC] ASDIRECTED Care 09/20/21 19:08 Ordered RT Aerosol Therapy [RC] ASDIRECTED Care 09/20/21 19:14 Ordered VTE/DVT Education [RC] PER UNIT ROUTINE Care 09/20/21 19:08 Ordered Vital Signs [RC] Q4H Care 09/20/21 19:08 Ordered OT Evaluation and Treatment [CONS] Routine Cons 09/20/21 19:08 Ordered PT Evaluation and Treatment [CONS] Routine Cons 09/20/21 19:08 Ordered BLOOD CULTURE [MREF] Stat Lab 09/20/21 18:30 Received BLOOD CULTURE [MREF] Stat Lab 09/20/21 18:36 Received C-REACTIVE PROTEIN [CHEM] DAILY Lab 09/20/21 19:15 Ordered C-REACTIVE PROTEIN [CHEM] DAILY Lab 09/21/21 19:15 Ordered C-REACTIVE PROTEIN [CHEM] DAILY Lab 09/22/21 19:15 Ordered CBC WITH AUTO DIFF [HEME] DAILY Lab 09/20/21 05:00 Ordered CBC WITH AUTO DIFF [HEME] DAILY Lab 09/21/21 05:00 Ordered CBC WITH AUTO DIFF [HEME] DAILY Lab 09/22/21 05:00 Ordered CBC WITH AUTO DIFF [HEME] DAILY Lab 09/23/21 05:00 Ordered CBC WITH AUTO DIFF [HEME] DAILY Lab 09/24/21 05:00 Ordered COMPREHENSIVE METABOLIC PN,CMP [CHEM] DAILY Lab 09/20/21 05:00 Ordered COMPREHENSIVE METABOLIC PN,CMP [CHEM] DAILY Lab 09/21/21 05:00 Ordered COMPREHENSIVE METABOLIC PN,CMP [CHEM] DAILY Lab 09/22/21 05:00 Ordered COMPREHENSIVE METABOLIC PN,CMP [CHEM] DAILY Lab 09/23/21 05:00 Ordered COMPREHENSIVE METABOLIC PN,CMP [CHEM] DAILY Lab 09/24/21 05:00 Ordered MAGNESIUM [CHEM] Routine Lab 09/20/21 19:08 Ordered PHOSPHORUS [CHEM] Routine Lab 09/20/21 19:08 Ordered PRO B-TYPE NATRIUR PEPT,BNPPRO [CHEM] Stat Lab 09/20/21 16:24 Received RESPIRATORY CULT [MREF] Stat Lab 09/20/21 19:08 Ordered TROPONIN I [CHEM] Routine Lab 09/20/21 19:08 Ordered Acetaminophen [TylenoL] Med 09/20/21 19:08 Ordered 650 mg PO Q6H PRN Albuterol Med 09/20/21 19:11 Ordered 2 puff INH Q4H PRN Albuterol/Ipratropium [DuoNeb 3.0-0.5 MG/3 ML] Med 09/20/21 19:15 Ordered 1 unit NEB Q6H Albuterol/Ipratropium [DuoNeb 3.0-0.5 MG/3 ML] Med 09/20/21 19:08 Stop Req 3 ml NEB Q4H PRN Budesonide/Formoterol Fumarate Med 09/20/21 21:00 Ordered 2 puff INH BID Cefepime [Maxipime] 2 gm Med 09/20/21 19:15 Ordered Sodium Chloride 0.9% [Normal Saline] 50 ml IV Q8H Cholecalciferol (Vitamin D3) [Vitamin D3] Med 09/21/21 09:00 Ordered 2,000 units PO DAILY Docusate Sodium [Colace] Med 09/20/21 19:08 Ordered 100 mg PO BID PRN Dupilumab [Dupixent Pen] Med 09/20/21 19:15 Ordered 300 mg IM Q14D Levothyroxine Med 09/20/21 19:15 Ordered 175 mcg PO ASDIRECTED Morphine Med 09/20/21 19:08 Ordered 2 mg IVPUSH Q4H PRN Nystatin [Nystatin Oral Syringe] Med 09/20/21 21:00 Ordered 500,000 unit PO TID Promethazine [Phenergan] 12.5 mg Med 09/20/21 19:08 Ordered Sodium Chloride 0.9% [Normal Saline] 50 ml IV Q6H Tamsulosin [Flomax] Med 09/21/21 19:00 Ordered 0.4 mg PO PCDINNER oxyCODONE Med 09/20/21 19:08 Ordered 5 mg PO Q6H PRN predniSONE [Prednisone] Med 09/20/21 19:15 Ordered 10 mg PO DAILY Blood Culture x2 Reflex Set [OM.PC] Stat Oth 09/20/21 18:00 Ordered Resuscitation Status Routine Resus Stat 09/20/21 19:08 Ordered Medication Orders Acetaminophen (Acetaminophen 325 Mg Tab) 650 mg PO Q6H PRN PRN Reason: Pain (Mild 1-3)/fever Albuterol/Ipratropium (Albuterol/Ipratropium 3.0-0.5 Mg/3 Ml Neb Soln) 3 ml NEB Q4H PRN PRN Reason: Shortness Of Breath/wheezing Albuterol/Ipratropium (Albuterol/Ipratropium 3.0-0.5 Mg/3 Ml Neb Soln) ml NEB Q6H SAMMIE Docusate Sodium (Docusate Sodium 100 Mg Cap) 100 mg PO BID PRN PRN Reason: Constipation Promethazine HCl 12.5 mg/ (Sodium Chloride) 50.5 mls @ 100 mls/hr IV Q6H PRN PRN Reason: Nausea/Vomiting Cefepime HCl 2 gm/ Sodium (Chloride) 50 mls @ 100 mls/hr IV Q8H SAMMIE Morphine Sulfate (Morphine 2 Mg/Ml Syringe) 2 mg IVPUSH Q4H PRN PRN Reason: Pain (severe 7-10) Stop: 09/21/21 19:08 Non-Formulary Medication (Albuterol) 2 puff INH Q4H PRN PRN Reason: Shortness of Breath Non-Formulary Medication (Budesonide/Formoterol Fumarate) 2 puff INH BID SAMMIE Non-Formulary Medication (Cholecalciferol (Vitamin D3) [Vitamin D3]) 2,000 units PO DAILY SAMMIE Non-Formulary Medication (Dupilumab [Dupixent Pen]) 300 mg IM Q14D SAMMIE Non-Formulary Medication (Levothyroxine) 175 mcg PO ASDIRECTED SAMMIE Non-Formulary Medication (Prednisone [Prednisone]) 10 mg PO DAILY SAMMIE Nystatin (Nystatin Susp 100,000 Unit/Ml 5 Ml Oral Syringe) 500,000 unit PO TID SAMMIE Oxycodone HCl (Oxycodone 5 Mg Tab) 5 mg PO Q6H PRN PRN Reason: Pain (moderate 4-6) Tamsulosin HCl (Tamsulosin 0.4 Mg Cap.Er) 0.4 mg PO PCDINNER SAMMIE Assessment/Plan Comment:: Patient is a 80-year-old male with a history of polycythemia vera, history of positive COVID-19, anemia and thrombocytopenia who presents to the ER due to generalized weakness. Assessment and plan: Generalized weakness Etiologies include infection/bacteremia, malignancy, status post Covid syndrome, dehydration WBC 10.57 CXR - negative for acute change He is on prednisone 10mg daily and dupilumab Blood culture Cefepime 2 g every 8 hours PT OT Dehydration Hypotension Blood pressure was initially 80/60. SPB went up > 100 after 350ml NS. Continue gentle IV NS 50mg/hr. Hx of positive covid 19 Has not vaccinated Polycythemia vera Continue prednisone 10mg daily and dupilumab ER physician spoke to hematology/oncologist Dr. Hall at [facility] who suggested to stop hydroxyurea Follow with hematology/oncologist Congestive heart failure Unknown type Lasix 40mg dialy and spironolactone 25mg daily are on hold BNP Intake and output COPD Continue inhalers Anemia Hb 9.5 in the ER. It was 12.7 on 08/19/2021 and 14.5 on 09/06/2020 [place] Thrombocytopenia, 63 in the ER. Platelets have been low since 09/06/2020 No bleeding Repeat CBC Thrush? Nystatin Celluliti, right buttock on abx DT prophylaxis: SCD. No pharmacological DVT prophylaxis due to anemia and thrombocytopenia CODE STATUS: DNR/DNI Disposition: Observation - Mortality Measure Prognosis:: Good
[2021-09-20] MEDS ORDERED: Sodium Chloride 0.9% 1,000 ML IV STA (19:30)
[2021-09-20] MEDS ORDERED: Nystatin Susp 100,000 Unit/ML 5 ML Oral Syringe PO SCH (21:00)
[2021-09-21] MEDS: Cefepime 2 GM in Sodium Chloride 0.9% 50 ML IV SCH ×2 (01:47→09:47)
[2021-09-21] MEDS: Acetaminophen 325 MG Tab PO PRN ×2 (02:00→08:15)
[2021-09-21] MEDS ORDERED: LEVOTHYROXINE 175 MCG PO SCH (08:00)
[2021-09-21] MEDS ORDERED: Albuterol/Ipratropium 3.0-0.5 MG/3 ML Neb Soln NEB PRN ×2 (08:42)
[2021-09-21] MEDS ORDERED: BUDESONIDE INH SCH ×2 (09:00→20:00)
[2021-09-21] MEDS ORDERED: Cholecalciferol (Vitamin D3) 25 MCG Tab PO SCH (09:00)
[2021-09-21] MEDS ORDERED: Nystatin Susp 100,000 Unit/ML 5 ML UD Cup PO SCH (09:00)
[2021-09-21] MEDS ORDERED: FORMOTEROL FUMARATE INH SCH ×2 (09:00→20:00)
[2021-09-21] MEDS ORDERED: Albuterol/Ipratropium 3.0-0.5 MG/3 ML Neb Soln NEB SCH (10:00)
[2021-09-21 13:48] VITALS: BP 98/57; PULSE 71
--- NOTE | 2021-09-21 14:05 | PCM.DCSUM1 ---
Discharge Summary - Hospital Course Free Text/Narrative:: Patient is a 80-year-old male with a history of polycythemia vera, history of positive COVID-19, anemia and thrombocytopenia who presents to the ER due to generalized weakness. Assessment and plan: Generalized weakness Etiologies include infection/bacteremia, malignancy, status post Covid syndrome, dehydration WBC 11.27 CXR - negative for acute change He is on prednisone 10mg daily and dupilumab Blood culture no growth Will discontinue cefepime 2 g every 8 hours PT OT Dehydration Hypotension -improved Blood pressure was initially 80/60. SPB went up > 100 after 350ml NS. Continue gentle IV NS 50mg/hr. Hx of positive covid 19 Has not vaccinated Polycythemia vera Continue prednisone 10mg daily and dupilumab ER physician spoke to hematology/oncologist Dr. Hall at [place] who suggested to stop hydroxyurea Follow with hematology/oncologist Congestive heart failure Unknown type Lasix 40mg dialy and spironolactone 25mg daily are on hold BNP 2382 Intake and output COPD Continue inhalers Anemia Hb 9.5 in the ER. It was 12.7 on 08/19/2021 and 14.5 on 09/06/2020 Hemoglobin 9.7 today Guaiac negative Thrombocytopenia, 63 in the ER. Platelets have been low since 09/06/2020 No bleeding Repeat CBC Thrush? Nystatin Celluliti, right buttock We will discharge him on Augmentin for 5 days. Today patient does not have any complaints. He feels much better and stronger today. Blood pressure soft but patient asymptomatic. White blood cells mildly elevated. He otherwise does not have any evidence of infection. Patient have anemia and thrombocytopenia which could be due to his polycythemia vera. Guaiac test negative. Patient would like to go home today for the [place]. Patient and to refused any facilities and services. As per Dr. Bradley, hydroxyurea is on hold. Patient will be discharged home today to follow with PCP in 3 days and the hematology/oncology within 1 week. Repeat a CBC, CMP, and electrolytes in 3 days when you see ER PCP. Do not drive until approval from MD. If you do not feel well or new problems occur, please go to the ER immediately. Blood culture still pending. Please call the hospital for your blood culture result in 2 to 3 days. Call PCP for medical issues. - Mortality Measure Prognosis:: Good Diagnosis: Stroke: No - Discharge Data Discharge Date: 09/21/21 Discharge Disposition: Home, Self-Care 01 Condition: Poor - Referral to Home Health Primary Care Physician: Yamil Watson MD - Patient Summary/Data Consults: Consultations 09/20/21 19:08 OT Evaluation and Treatment [CONS] Routine PT Evaluation and Treatment [CONS] Routine Labs Pending at D/C: Blood culture still pending. Recommended Follow-up Testing/Procedures: follow with PCP in 3 days and the hematology/oncology within 1 week. Repeat a CBC, CMP, and electrolytes in 3 days when you see ER PCP. Do not drive until approval from MD. If you do not feel well or new problems occur, please go to the ER immediately. Blood culture still pending. Please call the hospital for your blood culture result in 2 to 3 days. Call PCP for medical issues. - Patient Instructions Diet: Regular Diet as Tolerated Driving: Do Not Drive - Discharge Plan *PRESCRIPTION DRUG MONITORING PROGRAM REVIEWED*: Not Applicable *COPY OF PRESCRIPTION DRUG MONITORING REPORT IN PATIENT OTIS: Not Applicable Prescriptions/Med Rec: Azithromycin 500 mg PO DAILY #5 tablet Nystatin [Mycostatin] 5 ml PO TID #100 ml Home Medications: Home Meds Levothyroxine 150 mcg PO MOWEFRSA 01/17/17 [History] Levothyroxine 175 mcg PO SUTUTH 01/17/17 [History] Albuterol [Ventolin HFA] 2 puff INH Q4H PRN 09/02/20 [History] Budesonide/Formoterol [Symbicort 80-4.5 MCG] 2 puff INH BID 09/02/20 [History] EPINEPHrine [Epinephrine] 1 syringe IM ASDIRECTED 09/02/20 [History] Mineral Oil 1 applic TOP ASDIRECTED 09/02/20 [History] Tamsulosin [Flomax] 0.4 mg PO PCDINNER 09/02/20 [History] Furosemide 40 mg PO DAILY 09/20/21 [History] Albuterol/Ipratropium [DuoNeb 3.0-0.5 MG/3 ML] 3 ml NEB Q6H PRN 09/21/21 [History] Azithromycin 500 mg PO DAILY #5 tablet 09/21/21 [Rx] Cholecalciferol (Vitamin D3) [Vitamin D3] 50 mcg PO DAILY tablet 09/21/21 [Rx] Nystatin [Mycostatin] 5 ml PO TID #100 ml 09/21/21 [Rx] Patient Handouts: Anemia, Sepsis, Diagnosis, Adult, Heart Failure, Diagnosis, Living With Heart Failure Forms: ED Department Discharge Referrals: Yamil Watson MD [Primary Care Provider] - 10/02/21 11:30 am (Please keep this previously scheduled appointment.This is the check in time for your 11:45 appointment) - Discharge Summary/Plan Comment DC Time >30 min.: Yes Total # of Minutes for Discharge Time: 90mins - General Info Date of Service: 09/21/21 Admission Dx/Problem (Free Text: Admission Diagnosis/Problem Admission Diagnosis/Problem Anemia Subjective Update: no complaints - Review of Systems General: Reports: No Symptoms HEENT: Reports: No Symptoms Pulmonary: Reports: No Symptoms Cardiovascular: Reports: No Symptoms Gastrointestinal: Reports: No Symptoms Genitourinary: Reports: No Symptoms Musculoskeletal: Reports: No Symptoms Skin: Reports: No Symptoms Neurological: Reports: No Symptoms Psychiatric: Reports: No Symptoms - Patient Data Vitals - Most Recent: Last Vital Signs Temp 36.6 C 09/21/21 13:00 Pulse 71 09/21/21 13:00 Resp 18 09/21/21 13:00 BP 98/57 L 09/21/21 13:00 Pulse Ox 95 09/21/21 13:00 Weight - Most Recent: 78.018 kg I&O - Last 24 hours: Intake & Output 09/20/21 09/21/21 09/21/21 22:59 06:59 14:59 Intake Total 1215 Balance 1215 Lab Results - Last 24 hrs: Laboratory Results - last 24 hr 09/20/21 09/20/21 09/20/21 Range/Units 16:22 16:24 16:24 WBC 10.57 H (4.23-9.07) K/mm3 RBC 2.60 L (4.63-6.08) M/mm3 Hgb 9.5 L D (13.7-17.5) gm/dl Hct 30.6 L (40.1-51.0) % MCV 117.7 H D (79.0-92.2) fl MCH 36.5 H (25.7-32.2) pg MCHC 31.0 L (32.2-35.5) g/dl RDW Std Deviation 80.0 H (35.1-43.9) fL Plt Count 63 L (163-337) K/mm3 MPV 11.2 (9.4-12.3) fl Neut % (Auto) 61.6 (34.0-67.9) % Lymph % (Auto) 14.3 L (21.8-53.1) % [place] % (Auto) 17.4 H (5.3-12.2) % Eos % (Auto) 4.4 (0.8-7.0) Baso % (Auto) 0.4 (0.1-1.2) % Neut # (Auto) 6.51 H (1.78-5.38) K/mm3 Lymph # (Auto) 1.51 (1.32-3.57) K/mm3 [place] # (Auto) 1.84 H (0.30-0.82) K/mm3 Eos # (Auto) 0.47 (0.04-0.54) K/mm3 Baso # (Auto) 0.04 (0.01-0.08) K/mm3 Manual Slide Review Percent Retic (0.51-1.81) % PT 14.4 H (9.7-12.0) SECONDS INR 1.31 Sodium (136-145) mEq/L Potassium (3.5-5.1) mEq/L Chloride (98-107) mEq/L Carbon Dioxide (21-32) mEq/L Anion Gap (5-15) BUN (7-18) mg/dL Creatinine (0.7-1.3) mg/dL Est Cr Clr Drug Dosing mL/min Estimated GFR (MDRD) (>60) mL/min BUN/Creatinine Ratio (14-18) Glucose (70-99) mg/dL Calcium (8.5-10.1) mg/dL Phosphorus (2.6-4.7) mg/dL Magnesium (1.8-2.4) mg/dL Total Bilirubin (0.2-1.0) mg/dL AST (15-37) U/L ALT (16-63) U/L Alkaline Phosphatase (46-116) U/L Troponin I (0.00-0.056) ng/mL C-Reactive Protein (<1.0) mg/dL NT-Pro-B Natriuret Pep (0-450) pg/mL Total Protein (6.4-8.2) g/dl Albumin (3.4-5.0) g/dl Globulin gm/dL Albumin/Globulin Ratio (1-2) Urine Color (Yellow) Urine Appearance (Clear) Urine pH (5.0-8.0) Ur Specific [place] (1.005-1.030) Urine Protein (Negative) Urine Glucose (UA) (Negative) Urine Ketones (Negative) Urine Occult Blood (Negative) Urine Nitrite (Negative) Urine Bilirubin (Negative) Urine Urobilinogen (0.2-1.0) Ur Leukocyte Esterase (Negative) Urine RBC (0-5) /hpf Urine WBC (0-5) /hpf Ur Squamous Epith Cells (0-5) /hpf Urine Bacteria (FEW) /hpf Urine Mucus (FEW) /hpf Ketones (0.0-0.3) mM SARS-CoV-2 RNA (CONSTANTINO) Negative (NEGATIVE) 09/20/21 09/20/21 09/20/21 Range/Units 16:24 16:24 16:24 WBC (4.23-9.07) K/mm3 RBC (4.63-6.08) M/mm3 Hgb (13.7-17.5) gm/dl Hct (40.1-51.0) % MCV (79.0-92.2) fl MCH (25.7-32.2) pg MCHC (32.2-35.5) g/dl RDW Std Deviation (35.1-43.9) fL Plt Count (163-337) K/mm3 MPV (9.4-12.3) fl Neut % (Auto) (34.0-67.9) % Lymph % (Auto) (21.8-53.1) % [place] % (Auto) (5.3-12.2) % Eos % (Auto) (0.8-7.0) Baso % (Auto) (0.1-1.2) % Neut # (Auto) (1.78-5.38) K/mm3 Lymph # (Auto) (1.32-3.57) K/mm3 [place] # (Auto) (0.30-0.82) K/mm3 Eos # (Auto) (0.04-0.54) K/mm3 Baso # (Auto) (0.01-0.08) K/mm3 Manual Slide Review Percent Retic (0.51-1.81) % PT (9.7-12.0) SECONDS INR Sodium 134 L (136-145) mEq/L Potassium 4.0 (3.5-5.1) mEq/L Chloride 101 (98-107) mEq/L Carbon Dioxide 27 (21-32) mEq/L Anion Gap 10.0 (5-15) BUN 23 H (7-18) mg/dL Creatinine 1.2 (0.7-1.3) mg/dL Est Cr Clr Drug Dosing 53.16 mL/min Estimated GFR (MDRD) 58 (>60) mL/min BUN/Creatinine Ratio 19.2 H (14-18) Glucose 98 (70-99) mg/dL Calcium 8.1 L (8.5-10.1) mg/dL Phosphorus (2.6-4.7) mg/dL Magnesium (1.8-2.4) mg/dL Total Bilirubin 1.2 H (0.2-1.0) mg/dL AST 16 (15-37) U/L ALT 8 L (16-63) U/L Alkaline Phosphatase 96 (46-116) U/L Troponin I (0.00-0.056) ng/mL C-Reactive Protein 2.2 H* (<1.0) mg/dL NT-Pro-B Natriuret Pep 2382 H (0-450) pg/mL Total Protein 5.5 L (6.4-8.2) g/dl Albumin 2.6 L (3.4-5.0) g/dl Globulin 2.9 gm/dL Albumin/Globulin Ratio 0.9 L (1-2) Urine Color (Yellow) Urine Appearance (Clear) Urine pH (5.0-8.0) Ur Specific [place] (1.005-1.030) Urine Protein (Negative) Urine Glucose (UA) (Negative) Urine Ketones (Negative) Urine Occult Blood (Negative) Urine Nitrite (Negative) Urine Bilirubin (Negative) Urine Urobilinogen (0.2-1.0) Ur Leukocyte Esterase (Negative) Urine RBC (0-5) /hpf Urine WBC (0-5) /hpf Ur Squamous Epith Cells (0-5) /hpf Urine Bacteria (FEW) /hpf Urine Mucus (FEW) /hpf Ketones 0.31 (0.0-0.3) mM SARS-CoV-2 RNA (CONSTANTINO) (NEGATIVE) 09/20/21 09/20/21 09/20/21 Range/Units 16:24 17:40 18:30 WBC (4.23-9.07) K/mm3 RBC (4.63-6.08) M/mm3 Hgb (13.7-17.5) gm/dl Hct (40.1-51.0) % MCV (79.0-92.2) fl MCH (25.7-32.2) pg MCHC (32.2-35.5) g/dl RDW Std Deviation (35.1-43.9) fL Plt Count (163-337) K/mm3 MPV (9.4-12.3) fl Neut % (Auto) (34.0-67.9) % Lymph % (Auto) (21.8-53.1) % [place] % (Auto) (5.3-12.2) % Eos % (Auto) (0.8-7.0) Baso % (Auto) (0.1-1.2) % Neut # (Auto) (1.78-5.38) K/mm3 Lymph # (Auto) (1.32-3.57) K/mm3 [place] # (Auto) (0.30-0.82) K/mm3 Eos # (Auto) (0.04-0.54) K/mm3 Baso # (Auto) (0.01-0.08) K/mm3 Manual Slide Review Percent Retic 1.05 (0.51-1.81) % PT (9.7-12.0) SECONDS INR Sodium (136-145) mEq/L Potassium (3.5-5.1) mEq/L Chloride (98-107) mEq/L Carbon Dioxide (21-32) mEq/L Anion Gap (5-15) BUN (7-18) mg/dL Creatinine (0.7-1.3) mg/dL Est Cr Clr Drug Dosing mL/min Estimated GFR (MDRD) (>60) mL/min BUN/Creatinine Ratio (14-18) Glucose (70-99) mg/dL Calcium (8.5-10.1) mg/dL Phosphorus 4.3 (2.6-4.7) mg/dL Magnesium 2.2 (1.8-2.4) mg/dL Total Bilirubin (0.2-1.0) mg/dL AST (15-37) U/L ALT (16-63) U/L Alkaline Phosphatase (46-116) U/L Troponin I < 0.017 (0.00-0.056) ng/mL C-Reactive Protein (<1.0) mg/dL NT-Pro-B Natriuret Pep (0-450) pg/mL Total Protein (6.4-8.2) g/dl Albumin (3.4-5.0) g/dl Globulin gm/dL Albumin/Globulin Ratio (1-2) Urine Color Yellow (Yellow) Urine Appearance Clear (Clear) Urine pH 6.0 (5.0-8.0) Ur Specific [place] 1.015 (1.005-1.030) Urine Protein Negative (Negative) Urine Glucose (UA) Negative (Negative) Urine Ketones Negative (Negative) Urine Occult Blood Trace-intact H (Negative) Urine Nitrite Negative (Negative) Urine Bilirubin Negative (Negative) Urine Urobilinogen 0.2 (0.2-1.0) Ur Leukocyte Esterase Negative (Negative) Urine RBC 0-5 (0-5) /hpf Urine WBC 0-5 (0-5) /hpf Ur Squamous Epith Cells 0-5 (0-5) /hpf Urine Bacteria Few (FEW) /hpf Urine Mucus Many H (FEW) /hpf Ketones (0.0-0.3) mM SARS-CoV-2 RNA (CONSTANTINO) (NEGATIVE) 09/20/21 09/21/21 09/21/21 Range/Units 18:30 05:18 05:18 WBC 11.27 H (4.23-9.07) K/mm3 RBC 2.66 L (4.63-6.08) M/mm3 Hgb 9.7 L (13.7-17.5) gm/dl Hct 31.4 L (40.1-51.0) % MCV 118.0 H (79.0-92.2) fl MCH 36.5 H (25.7-32.2) pg MCHC 30.9 L (32.2-35.5) g/dl RDW Std Deviation 80.6 H (35.1-43.9) fL Plt Count 69 L (163-337) K/mm3 MPV 11.3 (9.4-12.3) fl Neut % (Auto) 63.0 (34.0-67.9) % Lymph % (Auto) 15.5 L (21.8-53.1) % [place] % (Auto) 15.7 H (5.3-12.2) % Eos % (Auto) 3.8 (0.8-7.0) Baso % (Auto) 0.3 (0.1-1.2) % Neut # (Auto) 7.10 H (1.78-5.38) K/mm3 Lymph # (Auto) 1.75 (1.32-3.57) K/mm3 [place] # (Auto) 1.77 H (0.30-0.82) K/mm3 Eos # (Auto) 0.43 (0.04-0.54) K/mm3 Baso # (Auto) 0.03 (0.01-0.08) K/mm3 Manual Slide Review Abnormal smear Percent Retic (0.51-1.81) % PT (9.7-12.0) SECONDS INR Sodium 134 L (136-145) mEq/L Potassium 3.9 (3.5-5.1) mEq/L Chloride 100 (98-107) mEq/L Carbon Dioxide 26 (21-32) mEq/L Anion Gap 11.9 (5-15) BUN 22 H (7-18) mg/dL Creatinine 1.2 (0.7-1.3) mg/dL Est Cr Clr Drug Dosing 53.16 mL/min Estimated GFR (MDRD) 58 (>60) mL/min BUN/Creatinine Ratio 18.3 H (14-18) Glucose 93 (70-99) mg/dL Calcium 8.0 L (8.5-10.1) mg/dL Phosphorus (2.6-4.7) mg/dL Magnesium (1.8-2.4) mg/dL Total Bilirubin 1.3 H (0.2-1.0) mg/dL AST 17 (15-37) U/L ALT 13 L (16-63) U/L Alkaline Phosphatase 95 (46-116) U/L Troponin I (0.00-0.056) ng/mL C-Reactive Protein 2.2 H* (<1.0) mg/dL NT-Pro-B Natriuret Pep (0-450) pg/mL Total Protein 5.5 L (6.4-8.2) g/dl Albumin 2.7 L (3.4-5.0) g/dl Globulin 2.8 gm/dL Albumin/Globulin Ratio 1.0 (1-2) Urine Color (Yellow) Urine Appearance (Clear) Urine pH (5.0-8.0) Ur Specific [place] (1.005-1.030) Urine Protein (Negative) Urine Glucose (UA) (Negative) Urine Ketones (Negative) Urine Occult Blood (Negative) Urine Nitrite (Negative) Urine Bilirubin (Negative) Urine Urobilinogen (0.2-1.0) Ur Leukocyte Esterase (Negative) Urine RBC (0-5) /hpf Urine WBC (0-5) /hpf Ur Squamous Epith Cells (0-5) /hpf Urine Bacteria (FEW) /hpf Urine Mucus (FEW) /hpf Ketones (0.0-0.3) mM SARS-CoV-2 RNA (CONSTANTINO) (NEGATIVE) MARGARET Results - Last 24 hrs: Microbiology 09/21/21 11:27 Stool Occult Blood (MARGARET) - Final Stool / Feces Med Orders - Current: Current Medications Acetaminophen (Acetaminophen 325 Mg Tab) 650 mg PO Q6H PRN PRN Reason: Pain (Mild 1-3)/fever Last Admin: 09/21/21 08:15 Dose: 650 mg Documented by: Albuterol/Ipratropium (Albuterol/Ipratropium 3.0-0.5 Mg/3 Ml Neb Soln) 3 ml NEB QIDRT PRN PRN Reason: SOB/WHEEZING Cholecalciferol (Cholecalciferol (Vitamin D3) 25 Mcg Tab) 50 mcg PO DAILY SAMMIE Last Admin: 09/21/21 08:14 Dose: 50 mcg Documented by: Docusate Sodium (Docusate Sodium 100 Mg Cap) 100 mg PO BID PRN PRN Reason: Constipation Promethazine HCl 12.5 mg/ (Sodium Chloride) 50.5 mls @ 100 mls/hr IV Q6H PRN PRN Reason: Nausea/Vomiting Cefepime HCl 2 gm/ Sodium (Chloride) 50 mls @ 100 mls/hr IV Q8H [facility] Last Admin: 09/21/21 09:47 Dose: 100 mls/hr Documented by: Morphine Sulfate (Morphine 2 Mg/Ml Syringe) 2 mg IVPUSH Q4H PRN PRN Reason: Pain (severe 7-10) Stop: 09/21/21 19:08 Albuterol 18 Gm (Inhaler Ptom) 2 puff INH Q4H PRN PRN Reason: Shortness of Breath Last Admin: 09/21/21 08:19 Dose: 2 puff Documented by: Levothyroxine 175 (Mcg Tablet Ptom) 0 mcg PO SuTuTh@0600 [facility] Last Admin: 09/21/21 08:16 Dose: 175 mcg Documented by: Levothyroxine 150 (Mcg Tablet Ptom) 0 mcg PO MoWeFrSa@0600 [facility] Budesonide/Formoterol Fumarate 80/4.5mcg Inhaler Ptom 2 puff INH Q12H [facility] Nystatin (Nystatin Susp 100,000 Unit/Ml 5 Ml Ud Cup) 5 ml PO TID [facility] Last Admin: 09/21/21 08:15 Dose: 5 ml Documented by: Oxycodone HCl (Oxycodone 5 Mg Tab) 5 mg PO Q6H PRN PRN Reason: Pain (moderate 4-6) Tamsulosin HCl (Tamsulosin 0.4 Mg Cap.Er Ptom) 0.4 mg PO PCDINNER [facility] Discontinued Medications Albuterol/Ipratropium (Albuterol/Ipratropium 3.0-0.5 Mg/3 Ml Neb Soln) 3 ml NEB Q4H PRN PRN Reason: Shortness Of Breath/wheezing Albuterol/Ipratropium (Albuterol/Ipratropium 3.0-0.5 Mg/3 Ml Neb Soln) 3 ml NEB QIDRT SAMMIE Albuterol/Ipratropium (Albuterol/Ipratropium 3.0-0.5 Mg/3 Ml Neb Soln) 3 ml NEB Q6H PRN PRN Reason: Shortness of Breath Sodium Chloride (Normal Saline) 500 mls @ 250 mls/hr IV .BOLUS ONE Stop: 09/20/21 17:25 Last Admin: 09/20/21 16:12 Dose: 250 mls/hr Documented by: Cefepime HCl 2 gm/ Sodium (Chloride) 50 mls @ 100 mls/hr IV ONETIME ONE Stop: 09/20/21 18:29 Last Admin: 09/20/21 18:10 Dose: 100 mls/hr Documented by: Sodium Chloride (Normal Saline) 1,000 mls @ 50 mls/hr IV NOW STA Stop: 09/21/21 15:29 Last Admin: 09/20/21 23:30 Dose: 50 mls/hr Documented by: Budesonide/Formoterol Fumarate 80/4.5mcg Inhaler Ptom 2 puff INH BID [facility] Last Admin: 09/21/21 08:19 Dose: 2 puff Documented by: Nystatin (Nystatin Susp 100,000 Unit/Ml 5 Ml Oral Syringe) 500,000 unit PO TID [facility] Last Admin: 09/21/21 00:24 Dose: Not Given Documented by: - Exam Physical Findings Comments:: Physical Exam: General: No acute distress HEENT: Conjunctiva Clear, EOMI, Mucosa Moist & [place] Neck: Supple, Trachea Midline, NO JVD Lungs: CTA, normal Respiratory Effort, no Wheezing Cardiovascular: Regular Rate, Regular Rhythm GI/Abdominal Exam: Normal Bowel Sounds, Soft, Non-Tender, No Organomegaly, No Distention, No Abnormal Bruit, No Mass Extremities: Normal Inspection, Non-Tender, pitting pedal Edema+, Normal Capillary Refill Skin: Warm, Dry, 2-3 small eschars, surrounding skin erythema Neurology: A+O x 3, no focal neurological deficits Psychiatric: Normal Mood
[2021-09-21] MEDS ORDERED: Tamsulosin 0.4 MG Cap.ER **PTOM PO SCH (19:00)
[2021-09-22] MEDS ORDERED: LEVOTHYROXINE 150 MCG PO SCH (06:00)
== END 2021-09-21 15:30 | disposition home or self-care (01) ==
LOC: JD.ED 14:47 → JD.ICU 18:14
PROVIDERS: ADMIT Internal Medicine; ATTEND Internal Medicine
DX: R53.1 Weakness (principal); D69.6 Thrombocytopenia, unspecified; G47.30 Sleep apnea, unspecified; I50.9 Heart failure, unspecified; E03.9 Hypothyroidism, unspecified; D45 Polycythemia vera; E86.0 Dehydration; J44.9 Chronic obstructive pulmonary disease, unspecified; L03.317 Cellulitis of buttock; Z88.0 Allergy status to penicillin; Z87.891 Personal history of nicotine dependence; Z98.890 Other specified postprocedural states; Z79.890 Hormone replacement therapy; Z20.822 Contact with and (suspected) exposure to COVID-19
CPT/HCPCS: 36415; 71045; 80053; 81001; 82009; 82272; 83735; 83880; 84100; 84484; 85025; 85045; 85610; 86140; 87040; 96365; 97162; 99285; A9270; J0692; J7030; U0002; 96376; G0378

== ENCOUNTER 2021-09-29 15:09 | Emergency (ER) | payer MEDICARE, OTHER ==
[2021-09-29 15:53] VITALS: PULSE 72
--- NOTE | 2021-09-29 16:33 | EDM.PDOC ---
ED HPI GENERAL MEDICAL PROBLEM - General Chief Complaint: Genitourinary Problem Stated Complaint: TROUBLE URINATING Time Seen by Provider: 09/29/21 15:49 Source of Information: Reports: Family History Limitations: Reports: No Limitations - History of Present Illness INITIAL COMMENTS - FREE TEXT/NARRATIVE: 80-year-old male presents the emergency department accompanied by his . States he is unable to urinate however he did void first thing this morning. Patient was recently placed on comfort measures on September 25, 2021. He has a history of polycythemia and myelofibrosis. Patient's also notes that his penis is quite swollen and he does have increased edema noted to his bilateral lower extremities. She states he also has a history of congestive heart failure however is still taking his daily Lasix dose. - Related Data Allergies Allergy/AdvReac Type Severity Reaction Status Date / Time Penicillins Allergy Cannot Verified 09/20/21 14:59 Remember Home Meds: Home Meds Levothyroxine 150 mcg PO MOWEFRSA 01/17/17 [History] Levothyroxine 175 mcg PO SUTUTH 01/17/17 [History] Albuterol [Ventolin HFA] 2 puff INH Q4H PRN 09/02/20 [History] Budesonide/Formoterol [Symbicort 80-4.5 MCG] 2 puff INH BID 09/02/20 [History] EPINEPHrine [Epinephrine] 1 syringe IM ASDIRECTED 09/02/20 [History] Mineral Oil 1 applic TOP ASDIRECTED 09/02/20 [History] Tamsulosin [Flomax] 0.4 mg PO PCDINNER 09/02/20 [History] Furosemide 40 mg PO DAILY 09/20/21 [History] Albuterol/Ipratropium [DuoNeb 3.0-0.5 MG/3 ML] 3 ml NEB Q6H PRN 09/21/21 [History] Azithromycin 500 mg PO DAILY #5 tablet 09/21/21 [Rx] Cholecalciferol (Vitamin D3) [Vitamin D3] 50 mcg PO DAILY tablet 09/21/21 [Rx] Nystatin [Mycostatin] 5 ml PO TID #100 ml 09/21/21 [Rx] Past Medical History HEENT History: Reports: Hard of Hearing, Other (See Below) Other HEENT History: 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 Cardiovascular History: Reports: Heart Failure, Heart Murmur Respiratory History: Reports: Asthma, COPD, Sleep Apnea Gastrointestinal History: Reports: Other (See Below) Other Gastrointestinal History: hernia Genitourinary History: Reports: BPH Psychiatric History: Reports: Depression Endocrine/Metabolic History: Reports: Hypothyroidism Hematologic History: Reports: Polycythemia, Other (See Below) Other Hematologic History: myelofibrosis Oncologic (Cancer) History: Reports: Non-Hodgkin's Lymphoma Dermatologic History: Reports: Other (See Below) Other Dermatologic History: itchiness - Infectious Disease History Infectious Disease History: Reports: Novel Coronavirus - Past Surgical History Head Surgeries/Procedures: Reports: None HEENT Surgical History: Reports: Cataract Surgery, Naso-Sinus Surgery, Other (See Below) Cardiovascular Surgical History: Reports: None Respiratory Surgical History: Reports: None GI Surgical History: Reports: None Male Surgical History: Reports: None Endocrine Surgical History: Reports: None Oncologic Surgical History: Reports: Other (See Below) Other Oncologic Surgeries/Procedures: biopsy of stomach and right cheek Social & Family History - Family History Family Medical History: No Pertinent Family History - Tobacco Use Tobacco Use Status *Q: Former Tobacco User Used Tobacco, but Quit: Yes Month/Year Tobacco Last Used: 30 yr - Caffeine Use Caffeine Use: Reports: None - Recreational Drug Use Recreational Drug Use: No - Living Situation & Occupation Living situation: Reports: , with Spouse Occupation: Retired ED ROS GENERAL - Review of Systems Review Of Systems: Comprehensive ROS is negative, except as noted in HPI. ED EXAM, RENAL/ - Physical Exam Exam: See Below Exam Limited By: No Limitations General Appearance: Alert, WD/WN, No Apparent Distress Ears: Normal External Exam, Hearing Grossly Normal, Other (Cochlear implant noted to the left side of the patient's had) Nose: Normal Inspection Throat/Mouth: Normal Inspection, Normal Lips, Normal Voice, No Airway Compromise Head: Atraumatic, Normocephalic Neck: Normal Inspection, Supple Respiratory/Chest: No Respiratory Distress, No Accessory Muscle Use Cardiovascular: Normal Peripheral Pulses, Regular Rate, Rhythm. No: No Edema (3+ pitting edema to noted to the bilateral lower extremities as well as the penis) GI/Abdominal: Normal Bowel Sounds, Soft, Non-Tender, No Distention (Male) Exam: Other (Edema noted to the penis) Rectal (Males) Exam: Deferred Back Exam: Normal Inspection Extremities: Pedal Edema (3+ pitting edema noted to the bilateral lower extremities) Neurological: Alert, Oriented, Normal Cognition Psychiatric: Normal Affect, Normal Mood Skin Exam: Warm, Dry, Intact, No Rash, Pallor Lymphatic: No Adenopathy Course - Vital Signs Text/Narrative:: As stated above, patient presents with an inability to void. Physical exam is essentially unremarkable however patient is pale and frail looking. He does have 3+ edema noted to his bilateral lower extremities as well as edema noted to his penis. No scrotal edema is appreciated. ED vital signs reveal the patient is hypotensive however as stated above he is on comfort measures and does not want any IVs or medications. We will have nursing staff BladderScan the patient to see how much urine he has. Although, patient does not have any suprapubic tenderness or pressure. Last Recorded V/S: Last Vital Signs Temp 96.9 F 09/29/21 15:52 Pulse 72 09/29/21 15:52 Resp 20 09/29/21 15:52 BP 75/46 L 09/29/21 15:52 Pulse Ox 89 L 09/29/21 15:52 - Orders/Labs/Meds Orders: Active Orders 24 hr Category Date Time Status Bladder Scan [RC] ASDIRECTED Care 09/29/21 16:21 Active - Re-Assessments/Exams Free Text/Narrative Re-Assessment/Exam: 09/29/21 17:01 Nursing reports that patient was bladder scanned for 195 mL of urine. Discussed the results with the patient and his . At this time I do not feel patient would benefit from an Mendoza catheter. I did look back on his previous visits and he still has good renal function. Patient is likely not taking in much in the way of p.o. Patient's does agree with this. She states that he is barely taking any food in and his albumin and total protein levels are likely very low as well which would be contributing to the scrotal edema. P atient will be discharged home. Him and his are both agreeable to this plan. Departure - Departure Time of Disposition: 17:04 Disposition: Home, Self-Care 01 Condition: Poor Clinical Impression: Decreased urination - Discharge Information Referrals: Yamil Watson MD [Primary Care Provider] - Forms: ED Department Discharge Additional Instructions: Maxwell was seen in the emergency department today due to decreased urination. Bladder was scanned for 195 mL of urine. At this time it is not warranted to place Mendoza catheter as he likely does not have the urge to void to decrease urine in his bladder. As discussed, kidney function is still good at his last visit so he likely is not taking in much in the way of fluids. If he begins to drink more fluids he likely will void more. Should he have issues with pain or pressure noted in his bladder, recommend he be reevaluated. As discussed, swelling in penis and lower extremities is likely due to decreased protein intake causing him to have more swelling. Recommend elevation of his legs and penis as much as possible. Should his condition worsen or change, do not hesitate returning to the emergency department. Sepsis Event Note (ED) - Focused Exam Vital Signs: Vital Signs Temp Pulse Resp BP Pulse Ox 09/29/21 15:52 96.9 F 72 20 75/46 L 89 L - My Orders Last 24 Hours: My Active Orders 09/29/21 16:21 Bladder Scan [RC] ASDIRECTED - Assessment/Plan Last 24 Hours: My Active Orders 09/29/21 16:21 Bladder Scan [RC] ASDIRECTED
[2021-09-29 17:51] VITALS: BP 84/46
== END 2021-09-29 17:41 | disposition home or self-care (01) ==
LOC: JD.ED 15:09
DX: R39.198 Other difficulties with micturition (principal); J44.9 Chronic obstructive pulmonary disease, unspecified; E03.9 Hypothyroidism, unspecified; I50.9 Heart failure, unspecified; Z79.899 Other long term (current) drug therapy; Z88.0 Allergy status to penicillin; Z86.16 Personal history of COVID-19; Z87.891 Personal history of nicotine dependence
CPT/HCPCS: 99283